=== PATIENT | male | born 1975 | race Caucasian/White ===

== ENCOUNTER 2020-10-23 17:26 | Emergency (ER) | payer OTHER, SELFPAY ==
[2020-10-23 17:50] VITALS: BP 107/61; BP 110/66; PULSE 97; RESP 18; TEMP 36.9; O2SAT 91; BMI 32.9
--- NOTE | 2020-10-23 20:53 | ED.ABDPAIN ---
HPI - Abdominal Pain General Chief Complaint: Abdominal Pain Stated Complaint: n/v abd pain, warm sensation, substance abuse Time Seen by Provider: 10/23/20 20:45 Source: patient Mode of arrival: ambulatory Limitations: no limitations History of Present Illness HPI narrative: Patient presents ED for acid burning abdominal pain for the past 2-4 days. Patient states he used heroin and cocaine today to help with the pain. Patient denies any fever, chills my chest pain, shortness of breath, dysuria, hematuria, flank pain, or testicular pain. Patient states he has not used any Suboxone 1 week. Related Data Previous Rx's Medication Instructions Recorded famotidine [Pepcid] 20 mg PO DAILY #30 tab 10/23/20 Allergies Allergy/AdvReac Type Severity Reaction Status Date / Time No Known Allergies Allergy Unverified 01/27/20 15:32 Review of Systems Review of Systems Yes all other systems are reviewed and are negative Constitutional: Reports as per HPI and Reports no additional constitutional complaints Eyes: Reports as per HPI and Reports no additional eye complaints Reports system reviewed and no additional complaints, except as documented and Reports as per HPI Cardiovascular: Reports as per HPI and Reports no additional cardiovascular complaints Respiratory: Reports as per HPI and Reports no additional respiratory complaints Gastrointestinal: Reports as per HPI, Reports no additional gastrointestinal complaints and Reports abdominal pain (Acid burning sensation 3 days) Genitourinary: Reports no additional male genitourinary complaints and Reports as per HPI Musculoskeletal: Reports no additional musculoskeletal complaints and Reports as per HPI Reports system reviewed and no additional complaints, except as documented and Reports as per HPI Psychiatric: Reports no additional psychiatric complaints and Reports as per HPI Physical Exam Vital Signs: Vital Signs: Last Vital Signs Temp 99.4 F 10/23/20 22:00 Pulse 88 10/23/20 22:00 Resp 16 10/23/20 22:00 BP 100/52 L 10/23/20 22:00 Pulse Ox 94 10/23/20 22:00 Body Mass Index 32.9 Const: General: cooperative, healthy appearing, comfortable, no acute distress, well developed, alert and awake Orientation/consciousness: patient oriented x3 HENMT: Head: Yes normal to inspection, Yes No palpable skull fracture present, Yes normocephalic and Yes atraumatic Eyes: General: appearance normal, both eyes and all related structures Neck: Neck: Yes normal visual inspection, Yes full ROM, Yes no lymphadenopathy, Yes no meningeal signs, Yes trachea midline, Yes supple and No tender Chest: Chest palpation & inspection: normal inspection of the chest and normal palpation of entire chest wall Resp: Effort & Inspection: normal respiratory effort and able to speak in complete sentences Auscultation: clear to auscultation bilaterally Cardio: Jugular venous distension: no JVD Heart sounds: S1 normal heart sound present and S2 normal heart sound present GI: Inspection: Yes normal to inspection and No abdominal wall ecchymosis Palpation (GI): Soft to palpation, not firm, nontender, no guarding and not rigid : General: No CVA tenderness and Yes no CVA tenderness Back/Spine/Pelvis: Back: no CVA tenderness, No CVA tenderness and No back tenderness Skin: General skin exam: no rashes or lesions noted and elasticity normal Neuro: General: patient oriented x3, gait normal, no meningeal signs and CN's II-XI intact bilaterally Cranial nerves: Yes CN's II-XII intact bilaterally Extrem: General: Yes normal to inspection and Yes full ROM Psych: Appearance: grossly normal, well kempt and not disheveled Course Course Course Narrative: Patient given GI cocktail. Due to patient having heroin use will do EEG at least 1 troponin for epigastric burning as sensation for 3 days. Reevaluation(s) Reevaluation #1: Patient EKG normal. Negative STEMI. Patient labs are normal troponin negative. Liver enzymes normal. Patient feeling better after GI cocktail. Patient passed p.o. challenge. O2 saturation on room air 96% on monitor. Time: 23:26 MDM - Abdominal Pain MDM Narrative Medical decision making narrative: Normal sinus rhythm. Ventricular rate 91. Pr interval 148. QRS 92. QTC 428. Negative STEMI Lab Data Result diagrams: 10/23/20 21:10/23/20 21:13 Labs: Lab Results 10/23/20 10/23/20 10/23/20 Range/Units 21:13 21:13 21:13 WBC 11.1 H (4.8-10.8) X10*3/uL RBC 4.16 L (4.60-5.80) X10*6/uL Hgb 10.2 L (14.0-18.0) g/dl Hct 31.8 L (42-52) % MCV 76.4 L (80-98) fL MCH 24.5 L (27.0-33.0) pg MCHC 32.1 (31.0-36.0) g/dl RDW 16.1 H (11.0-16.0) % Plt Count 151 L (160-400) X10*3/uL MPV 12.4 (9.4-12.4) fL Immature Gran % (Auto) 0.3 (0.0-0.4) % Neut % (Auto) 70.4 (45-73) % Lymph % (Auto) 17.9 L (20-40) % [place] % (Auto) 9.2 (2-11) % Eos % (Auto) 1.9 (0-4) % Baso % (Auto) 0.3 (0-2) % Lymph # (Auto) 2.0 (1.2-4.9) X10*3/uL [place] # (Auto) 1.0 (0.1-1.2) X10*3/uL Eos # (Auto) 0.2 (0.0-0.4) X10*3/uL Baso # (Auto) 0.0 (0.0-0.2) X10*3/uL Abs Immat Gran (auto) 0.03 (0.00-0.03) X10*3/uL Absolute Neuts (auto) 7.8 (2.0-8.3) X10*3/uL Absolute Nucleated RBC 0.000 (0.0-0.012) X10*3/uL Nucleated RBC % (auto) 0.0 (0.0-0.2) /100WBC Smear Tech's Comments VERIFIED PT 16.9 H (10.8-13.0) SEC INR 1.4 H (0.9-1.1) APTT 36.8 (24.1-38.0) SEC Sodium 135 (135-145) mmol/L Potassium 3.8 (3.3-5.1) mmol/L Chloride 96 (96-108) mmol/L Carbon Dioxide 29 (22-29) mmol/L Anion Gap 14 (12-20) BUN 9 (9-16) mg/dL Creatinine 0.85 (0.5-1.4) mg/dL Estim Creat Clear Calc 111.8 Estimated GFR > 60 Random Glucose 91 (60-115) mg/dL Calcium 8.9 (8.4-10.2) mg/dL Total Bilirubin 0.8 (0.0-1.0) mg/dL AST 43 H (5-37) U/L ALT 23 (0-40) U/L Alkaline Phosphatase 69 (39-117) U/L Troponin I High Sens (<3.5-35.0) ng/L Total Protein 6.7 (6.5-8.0) g/dL Albumin 3.9 (3.5-5.0) g/dL Lipase 8 (8-78) U/L 10/23/20 Range/Units 21:13 WBC (4.8-10.8) X10*3/uL RBC (4.60-5.80) X10*6/uL Hgb (14.0-18.0) g/dl Hct (42-52) % MCV (80-98) fL MCH (27.0-33.0) pg MCHC (31.0-36.0) g/dl RDW (11.0-16.0) % Plt Count (160-400) X10*3/uL MPV (9.4-12.4) fL Immature Gran % (Auto) (0.0-0.4) % Neut % (Auto) (45-73) % Lymph % (Auto) (20-40) % [place] % (Auto) (2-11) % Eos % (Auto) (0-4) % Baso % (Auto) (0-2) % Lymph # (Auto) (1.2-4.9) X10*3/uL [place] # (Auto) (0.1-1.2) X10*3/uL Eos # (Auto) (0.0-0.4) X10*3/uL Baso # (Auto) (0.0-0.2) X10*3/uL Abs Immat Gran (auto) (0.00-0.03) X10*3/uL Absolute Neuts (auto) (2.0-8.3) X10*3/uL Absolute Nucleated RBC (0.0-0.012) X10*3/uL Nucleated RBC % (auto) (0.0-0.2) /100WBC Smear Tech's Comments PT (10.8-13.0) SEC INR (0.9-1.1) APTT (24.1-38.0) SEC Sodium (135-145) mmol/L Potassium (3.3-5.1) mmol/L Chloride (96-108) mmol/L Carbon Dioxide (22-29) mmol/L Anion Gap (12-20) BUN (9-16) mg/dL Creatinine (0.5-1.4) mg/dL Estim Creat Clear Calc Estimated GFR Random Glucose (60-115) mg/dL Calcium (8.4-10.2) mg/dL Total Bilirubin (0.0-1.0) mg/dL AST (5-37) U/L ALT (0-40) U/L Alkaline Phosphatase (39-117) U/L Troponin I High Sens < 3.5 (<3.5-35.0) ng/L Total Protein (6.5-8.0) g/dL Albumin (3.5-5.0) g/dL Lipase (8-78) U/L Discharge Plan Discharge Clinical Impression: Gastroesophageal reflux disease Patient Disposition: Home, Self-Care Instructions: Gastroesophageal Reflux Disease (ED) Additional Instructions: Return to the ED for worsening abdominal pain, nausea, vomiting, fever, chills, chest pain, shortness of breath, diarrhea, or any other concerning symptoms. Please follow-up with the PCP Prescriptions: New famotidine [Pepcid] 20 mg tablet 20 mg PO DAILY Qty: 30 RF: 0 Interventions: ED Discharge Assessment Last Done: 10/23/20 23:39 Discharge Date/Time: 10/23/20 23:43 Print Language: Georgian [facility] Social History Social History Advance Directives: No Advance Directives Information Provided: No
[2020-10-23 20:56] VITALS: BP 110/56; PULSE 99; RESP 16; TEMP 37.8; O2SAT 99
--- NOTE | 2020-10-23 20:58 | ECG_ITS ---
Test Reason : ABD PAIN Blood Pressure : / mmHG Vent. Rate : 091 BPM Atrial Rate : 091 BPM P-R Int : 148 ms QRS Dur : 092 ms QT Int : 348 ms P-R-T Axes : 057 003 025 degrees QTc Int : 428 ms Normal sinus rhythm Normal ECG When compared with ECG of 01-APR-2002 10:13, No significant change was found Referred By: Arnold Stephen Electronically Signed By:KRISTINA FIGUEROA
[2020-10-23 21:20] LABS: Basophils Percent Auto 0.3 % (0-2); Eosinophils Absolute Auto 0.2 X10*3/uL (0.0-0.4); Eosinophils Percent Auto 1.9 % (0-4); Hemoglobin 10.2 g/dl (14.0-18.0); MANUAL DIFF FLAG SCAN; Mean Corpuscular Hemoglobin 24.5 pg (27.0-33.0); Mean Platelet Volume 12.4 fL (9.4-12.4); Red Blood Count 4.16 X10*6/uL (4.60-5.80); Red Cell Distribution Width 16.1 % (11.0-16.0); SCAN SMEAR FLAG 1
[2020-10-23 21:21] LABS: Hematocrit 31.8 % (42-52); Imm Gran Abs Auto 0.03 X10*3/uL (0.00-0.03); Imm Gran Pct Auto 0.3 % (0.0-0.4); Lymphocytes Percent Auto 17.9 % (20-40); Mean Corpuscular HGB Conc 32.1 g/dl (31.0-36.0); Mean Corpuscular Volume 76.4 fL (80-98); Monocytes Percent Auto 9.2 % (2-11); Neutrophils Absolute Auto 7.8 X10*3/uL (2.0-8.3); Neutrophils Percent Auto 70.4 % (45-73)
[2020-10-23 21:23] LABS: PLT ABN DIST 1
[2020-10-23] MEDS: PHENobarb/Hyoscy/Atropine/Scop 10 ML ELIXIR PO (21:34)
[2020-10-23] MEDS: Famotidine 20 MG TABLET PO (21:34)
[2020-10-23] MEDS: Lidocaine HCl Viscous 2 % 15 ML SOLUTION MUCOUS MEM (21:34)
[2020-10-23 21:39] LABS: White Blood Count 11.1 X10*3/uL (4.8-10.8)
[2020-10-23 21:40] LABS: Platelet Count 151 X10*3/uL (160-400); SLIDE REVIEW VERIFIED
[2020-10-23 21:41] LABS: Alanine Aminotransferase 23 U/L (0-40); Albumin Level 3.9 g/dL (3.5-5.0); Alkaline Phosphatase 69 U/L (39-117); Anion Gap 14 (12-20); Aspartate Amino Transferase 43 U/L (5-37); Bilirubin Total 0.8 mg/dL (0.0-1.0); Blood Urea Nitrogen 9 mg/dL (9-16); Calcium 8.9 mg/dL (8.4-10.2); Carbon Dioxide 29 mmol/L (22-29); Chloride 96 mmol/L (96-108); Creatinine Clr Calc Pharmacy 111.8; Estimated Glomerular Filt Rate > 60; Glucose Random 91 mg/dL (60-115); INTERNATIONAL NORM RATIO 1.4 (0.9-1.1); Potassium 3.8 mmol/L (3.3-5.1); Prothrombin Time 16.9 SEC (10.8-13.0); Sodium 135 mmol/L (135-145); Total Protein 6.7 g/dL (6.5-8.0)
[2020-10-23 21:44] LABS: Partial Thromboplastin Time 36.8 SEC (24.1-38.0)
[2020-10-23 21:47] LABS: Troponin-I High Sensitivity < 3.5 ng/L (<3.5-35.0)
[2020-10-23 22:00] VITALS: BP 100/52; PULSE 88; RESP 16; TEMP 37.4; O2SAT 94
[2020-10-23 22:51] LABS: Lipase 8 U/L (8-78)
== END 2020-10-23 23:43 | disposition home or self-care (01) ==
PROVIDERS: Physician Assistant; Emergency Provider Emergency Medicine Emergency Medical Services
DX: K21.9 Gastro-esophageal reflux disease without esophagitis (principal); R10.13 Epigastric pain; F11.10 Opioid abuse, uncomplicated
CPT/HCPCS: 36415; 80053; 83690; 84484; 85025; 85610; 85730; 93005; 99283; 99284

== ENCOUNTER 2021-05-03 10:40 | Outpatient (REF) | payer OTHER, SELFPAY | END 2021-05-03 10:41 | disposition home or self-care (01) | LOC: HO.LAB 10:40 | PROVIDERS: Visit Provider Internal Medicine | DX: Z20.822 Contact with and (suspected) exposure to COVID-19 (principal) | CPT/HCPCS: C9803; U0003; U0005 ==

== ENCOUNTER 2021-05-20 10:58 | Emergency (ER) | payer OTHER, SELFPAY ==
--- NOTE | ~2021-05-20 | XR_ITS ---
EXAMINATION: XR LUMBOSACRAL SPINE CLINICAL INFORMATION: Status post heavy lifting with lower back pain COMPARISON: None TECHNIQUE: Three views of the lumbosacral spine. FINDINGS: There is normal lumbar lordosis. The vertebral heights, alignment and disc heights are normal. No visible acute fracture, dislocation or subluxation seen. There is no lytic or sclerotic process. XR/XR lumbar spine 2-3V IMPRESSION: Unremarkable lumbar spine exam.
[2021-05-20 11:29] VITALS: BP 100/68; PULSE 91; RESP 18; TEMP 36.1; O2SAT 95; BMI 31.6
--- NOTE | 2021-05-20 11:56 | ED.BACK ---
HPI - Back Pain/Injury General Chief Complaint: Neck Pain/Injury Stated Complaint: Muscle spasm Time Seen by Provider: 05/20/21 11:49 Source: patient Mode of arrival: ambulatory Limitations: no limitations History of Present Illness HPI Narrative: 45-year-old male who is currently on Suboxone denies any IV drug use presenting to the ED with complaints of lower back pain/muscle spasms radiating to his right upper leg with associated numbness to his right upper leg for the past few days worse today. Reports that he has chronic back pain although usually the Motrin/Tylenol and Flexeril provide symptomatic relief and is no longer providing any relief. He reports that he believes it is related to work due to he works at [email or web address] where he has to heavy lift multiple boxes and is bending multiple times a day and he believes it is related to this. He denies any fevers, recent IV drug use, chest pain, abdominal pain, nausea/vomiting/diarrhea constipation, black or bloody stools, hematuria, saddle anesthesias, paresthesias, urinary or bowel incontinence or retention, rashes, weakness or any other symptoms complaints or concerns at this time. Patient is requesting x-ray of his lumbar spine at this time. MD elicited complaint: back pain and back injury Pertinent past history: prior back pain Onset (ago): day(s) Timing: constant and progressively worsening Severity: moderate Similar Symptoms Previously: Yes Quality: aching, spasming and throbbing Location: lumbar spine Radiation: right upper leg Exacerbating factors: movement, supine positioning, sitting upright, walking and lifting Relieving factors: none Context: while lifting, turning/twisting and bending Associated symptoms: numbness Treatments prior to arrival: other (Motrin/Tylenol/Flexeril and no symptomatic relief) Related Data Previous Rx's Medication Instructions Recorded famotidine 20 mg tablet (Pepcid) 20 mg PO DAILY #30 tab 10/23/20 ketorolac 10 mg tablet 10 mg PO Q8H PRN #10 tab 05/20/21 lidocaine 5 % topical patch 1 patch TOPICAL DAILY #15 ea 05/20/21 (Lidoderm) prednisone 20 mg tablet 40 mg PO DAILY 5 Days #10 tab 05/20/21 Allergies Allergy/AdvReac Type Severity Reaction Status Date / Time No Known Allergies Allergy Verified 05/20/21 11:32 Review of Systems Review of Systems: Constitutional : No trauma, No Weight loss, No Fever, No Chills, ENT/Mouth : No Hearing loss, No Ear Pain, No Nasal Congestion, No Sinus Pain, No Hoarseness, No sore throat, No Rhinorrhea, No Swallowing Difficulty Cardiovascular : No Chest Pain, No SOB Respiratory : No Cough, No Dyspnea Gastrointestinal : No Nausea, No Vomiting, No Diarrhea, No abdominal Pain, No Hematochezia, No Melena Genitourinary : No Dysuria, No Urinary Frequency, No Hematuria, No Urinary or Bowel Incontinence/retention Musculoskeletal : + Back pain, No neck pain, No joint stiffness, No joint swelling Skin : No Skin Lesions, No rash or signs of infection Neuro : No Weakness, + radiation, + Numbness, No Paresthesias, No headache, no loss of bowel or bladder incontinence, no saddle anesthesia, Focal weakness, No radiation Denies history of IV drug usage. Yes all other systems are reviewed and are negative PMFSH Past Medical History Attestation statement: The following information was validated with the patient. Medical History Asthma Hepatitis C Social History Social History Advance Directives: No Advance Directives Information Provided: Yes Physical Exam Vital Signs: Vital Signs: Last Vital Signs Temp 97.0 F 05/20/21 11:29 Pulse 91 05/20/21 11:29 Resp 18 05/20/21 13:29 BP 100/68 05/20/21 11:29 Pulse Ox 95 05/20/21 11:29 BMI result Body Mass Index 31.6 vital signs have been reviewed as normal and appeared to be correct. Blood pressure normal. Heart rate normal. Respiration rate normal. Temperature normal. Oxygen saturation normal. Appearance: Alert. Oriented X3. No acute distress. Head: Normal external exam. Normocephalic. Atraumatic. No Thomson signs noted. No raccoon eyes noted Eyes: PERRLA. EOMI. Conjunctiva and sclera normal. Eyelids normal. ENT: EAC normal. TM's Normal. Pharynx normal. Uvula midline. Moist mucous membranes. No trismus noted. No drooling noted. No muffled voice noted. Neck: Normal inspection. Neck supple. FROM. No adenopathy. Thyroid Normal. No meningeal signs. No neck mass noted. CVS: Normal heart rate and rhythm. Heart sound normal. No murmurs noted. Pulses normal throughout. Respiratory: No respiratory distress. Painless inspiration. Breath sounds normal. No wheezes/rales/rhonchi noted. Chest nontender. No accessory muscle usage noted or decreased air movement noted. Abdomen: Soft and nontender. Bowel sounds normal in all 4 quadrants. No distention noted. No organomegaly noted. No visible injury noted. Back: No CVA tenderness. Full range of motion noted. No obvious deformities, or edema. Mild para-spinal muscular tenderness from lumbar region to coccyx. Full ROM in back and lower extremities. 5/5 strength hip extension/flexion, abduction, adduction. Mild Lumbar pain with hip flexion against resistance. Straight leg raise test negative on right; Straight leg raise test negative on left; Reflexes normal ankle and knee bilaterally; EHL motor strength normal bilaterally. No rashes/lesion/induration/fluctuance or signs infection noted. Skin: Skin warm and dry. Normal skin color. Normal skin turgor. No rashes/lesions/lacerations noted. Extremities: No lower extremity edema. Extremities exhibit normal range of motion. Extremities nontender. Neuro: Oriented X 3. No motor deficit. No sensory deficit. Reflexes normal. Patient has a normal steady gait. Course Course Course Narrative: Pt c likely muscular pain, but could be herniated disc. Neuro exam shows no deficits. Not c/w AAA/epidural abscess/dissection. No high risk Hx (Incont, fever, immunosupp, recent surgery/LP, coag, signif trauma, wt loss, puls mass, hx/o Ca, TB, or IVDU) to warrant MRI/CT today. Not c/w Pyelo/UTI/kidney stone/spinal fx. Not cauda equina syndrome. Patient requesting x-ray of lumbar spine therefore not indicated although due to patient requesting will obtain an x-ray of lumbar spine. Treat symptomatic we with 30 mg of IM Toradol, 60 mg of prednisone and a Lidoderm patch and re-evaluate. Reevaluation(s) Reevaluation #1: - x-ray lumbar spine within normal limits. Therefore will DC home with symptomatic treatment instructions return if any new or worsening symptoms follow up with primary care provider. Patient understands agrees with this plan. Time: 13:22 MDM - Back Pain/Injury Medical Records Attestation: I reviewed the patient's medical records. Imaging Data Lumbar spine x-ray: Attestation: I personally reviewed and interpreted this imaging study as follows: Radiologist's impression: FINDINGS: There is normal lumbar lordosis. The vertebral heights, alignment and disc heights are normal. No visible acute fracture, dislocation or subluxation seen. There is no lytic or sclerotic process. XR/XR lumbar spine 2-3V IMPRESSION: Unremarkable lumbar spine exam. Discharge Plan Discharge Clinical Impression: Spasm of muscle of lower back Patient Disposition: Home, Self-Care Instructions: Muscle Spasm (ED) Prescriptions: New ketorolac 10 mg tablet 10 mg PO Q8H PRN (Reason: pain) Qty: 10 RF: 0 prednisone 20 mg tablet 40 mg PO DAILY 5 Days Qty: 10 RF: 0 lidocaine [Lidoderm] 5 % adhesive patch,medicated 1 patch topical DAILY Qty: 15 RF: 0 No Action famotidine [Pepcid] 20 mg tablet 20 mg PO DAILY Qty: 30 RF: 0 Referrals: Physician,Unknown J [Primary Care Provider] - 2 days (Your PCP) Stand Alone Forms: Work/School Release Print Language: Taiwanese
[2021-05-20] MEDS: Ketorolac Tromethamine 30 MG/ML VIAL IM (12:01)
[2021-05-20] MEDS: Lidocaine 4 % Patch ADH..PATCH 1 PATCH TRANSDERMA (12:01)
[2021-05-20] MEDS: predniSONE 20 MG TABLET 60 MG PO (12:01)
[2021-05-20 13:29] VITALS: RESP 18
== END 2021-05-20 13:41 | disposition home or self-care (01) ==
PROVIDERS: Emergency Provider Internal Medicine
DX: M54.50 Low back pain, unspecified (principal); M62.830 Muscle spasm of back; B19.20 Unspecified viral hepatitis C without hepatic coma; F11.20 Opioid dependence, uncomplicated
CPT/HCPCS: 72100; 96372; 99283; 99284; J1885

== ENCOUNTER 2021-05-22 13:21 | Outpatient (REF) | payer OTHER, SELFPAY ==
[2021-05-22 15:26] LABS: Binax Now Covid-19 Ag Negative (Negative)
[2021-05-22 15:27] LABS: Binax Internal Control QC Valid
== END 2021-05-22 13:22 | disposition home or self-care (01) ==
LOC: HO.LAB 13:21
PROVIDERS: Visit Provider Internal Medicine
DX: Z20.822 Contact with and (suspected) exposure to COVID-19 (principal)
CPT/HCPCS: C9803

== ENCOUNTER 2021-06-22 10:46 | Outpatient (REF) | payer OTHER, SELFPAY ==
[2021-06-22 11:23] LABS: COVID-19 Test Negative (Negative); IDNOW Serial# 16C4AD1C
== END 2021-06-22 10:47 | disposition home or self-care (01) ==
LOC: HO.LAB 10:46
PROVIDERS: Visit Provider Internal Medicine
DX: Z20.822 Contact with and (suspected) exposure to COVID-19 (principal)
CPT/HCPCS: 87635; C9803

== ENCOUNTER 2022-07-23 16:13 | Emergency (ER) | payer OTHER, SELFPAY ==
[2022-07-23 16:52] VITALS: BP 134/88; PULSE 118; RESP 18; TEMP 36.9; O2SAT 97; BMI 32.9
--- NOTE | 2022-07-23 16:56 | ED.GENADULT ---
HPI - General Adult General Chief complaint: General Medical Stated complaint: methedone Time Seen by Provider: 07/23/22 18:12 Source: patient Mode of arrival: ambulatory History of Present Illness HPI narrative: 46yo M w/PMHx Asthma, Hep C, presenting to the ED for Methadone dosing. Admits was seen at [facility] [place] on Friday, dosed at clinic on Friday, and then was supplied with 3 additional doses for 07/20, 07/21, and 07/22. Presenting today as was not aware clinic would be closed today. Admits to taking 76mg. Denies active substance use, or SI/HI Onset (ago): day(s) Related Data Previous Rx's Medication Instructions Recorded famotidine 20 mg tablet (Pepcid) 20 mg PO DAILY #30 tabs 10/23/20 ketorolac 10 mg tablet 10 mg PO Q8H PRN pain #10 tabs 05/20/21 lidocaine 5 % topical patch 1 patch topical DAILY pain #15 ea 05/20/21 (Lidoderm) prednisone 20 mg tablet 40 mg PO DAILY rash 5 days #10 tabs 05/20/21 Allergies Allergy/AdvReac Type Severity Reaction Status Date / Time No Known Allergies Allergy Verified 05/20/21 11:32 Review of Systems Review of Systems: Constitutional: No Fever, No Chills, No Fatigue, No Malaise ENT/Mouth: No Ear Pain, No Nasal Congestion, No sore throat, No Rhinorrhea, No Swallowing Difficulty Cardiovascular: No Chest Pain, No SOB Respiratory: No Cough, No Sputum, No Dyspnea Gastrointestinal: No Nausea, No Vomiting, No Abdominal pain Musculoskeletal: No joint pain, No Myalgias, No Joint Swelling Skin: No Skin Lesions, No rash Neuro: No Weakness, No Dizziness, No Headache Psych: No Anxiety/Panic, No Depression, No SI/HI/AH/VH, No Social Issues Yes all other systems are reviewed and are negative Constitutional: Constitutional: Reports as per [facility] Past Medical History Attestation statement: The following information was validated with the patient. Medical History Asthma Hepatitis C Physical Exam ED Vital Signs: Vital Signs - 24 hr 07/23/22 16:52 Temperature 98.4 F Pulse Rate 118 H Respiratory Rate 18 Blood Pressure 134/88 Pulse Oximetry 97 Oxygen Delivery Method Room Air BMI result Body Mass Index 32.9 Const General: cooperative, healthy appearing, comfortable, no acute distress, alert and awake Orientation/consciousness: patient oriented x3 Limitations: no limitations HENMT Head: Yes normal to inspection and Yes atraumatic Ears: hearing grossly normal bilaterally General nose exam: Normal external nose present Face and sinus: Yes normal facial exam Eyes General: appearance normal, both eyes and all related structures EOM: EOMs intact bilaterally Neck Neck: Yes normal visual inspection and Yes no meningeal signs Resp Effort & Inspection: normal respiratory effort and no respiratory distress Cardio Rate: regular rate Skin Rashes: no rashes Wounds: no wounds Neuro General: patient oriented x3, tone normal and no meningeal signs Gait exam (Neuro): Normal gait present Extrem General: Yes normal to inspection Psych Affect: normal affect Attitude: cooperative Course Course Course Narrative: RME-- 46yo M w/PMHx Asthma, Hep C, presenting to the ED for Methadone dosing. Admits was seen at clinic on Friday, dosed at clinic on Friday and then was supplied with 3 additional doses for 07/20, 07/21, and 07/22. Here today as was not aware clinic was closed today. Takes 76 mg, usually goes to [facility] contacted for dose verification Medications Administered Discontinued Medications Generic Name Dose Route Start Last Admin Trade Name Lobo PRN Reason Stop Dose Admin Methadone HCl 76 mg 07/23/22 18:10 07/23/22 18:23 Methadone Hcl 20 Mg/2 Ml Oral.Conc PO 07/23/22 18:11 76 mg ONCE ONE Administration Medical Decision Making Medical Decision Making [facility] Narrative: 46yo M w/PMHx Asthma, Hep C, presenting to the ED for Methadone dosing. Admits was seen at [facility] [place] on Friday, dosed at clinic on Friday, and then was supplied with 3 additional doses for 07/20, 07/21, and 07/22. Presenting today as was not aware clinic would be closed today. On exam initially tachycardic, patient presented to ED with empty bottles with corrected dating. Case discussed with kiran Wei, able to doze patient today as story checks out. Will provide patient with last dose letter. Please refer to course for remaining clinical decision making, interpretation of labs/imaging results, and discussions with consultants and/or family members. Differential Diagnosis Differential Diagnoses: The differential diagnosis associated with the presentation includes As above Consult Healthcare Provider Management of the patient was discussed with: Engineer Intern Lab Data MDM Lab Attestation statement: I reviewed the patient's lab results. External Record Review External record reviewed: Inpatient record, Office record, Outpatient record, Prior outpatient labs, Prior outpatient radiology, Primary care record and Outside ED record Discharge Plan Discharge Clinical Impression: Methadone dependence Patient Disposition: Home, Self-Care Instructions: Opioid Use Disorder (ED) Additional Instructions: Your dosed with her methadone today. You were supplied with a last dose letter. Follow-up with your clinic for further dosing Prescriptions: No Action famotidine [Pepcid] 20 mg tablet 20 mg PO DAILY Qty: 30 0RF ketorolac 10 mg tablet 10 mg PO Q8H PRN (Reason: pain) Qty: 10 0RF Rx Instructions: Given 1st dose in the ED prednisone 20 mg tablet 40 mg PO DAILY 5 Days Qty: 10 0RF lidocaine [Lidoderm] 5 % adhesive patch,medicated 1 patch topical DAILY Qty: 15 0RF Rx Instructions: leave on most painful area for up to 12 hrs. May be substituted Referrals: [facility] [Outside]
[2022-07-23] MEDS: methADONE HCl 20 MG/2 ML ORAL.CONC 76 MG PO (18:23)
--- OUTSIDE RECORDS SUMMARY | 2022-07-23 18:29 | XMS_ITS | Continuity of Care Document ---
:1975 Author Organization [facility] Address [address] [place] [address]- Care Team Providers Name Role Phone Cadence Bryant Primary Care Physician [place] [facility] [place] 03/17/22 [facility] [address]- Attending Physician: Cadence Bryant Admitting Physician: Cadence Bryant Referring Physician: Cadence Bryant Allergies, Adverse Reactions, Alerts Substance Reaction Severity Status Tylenol with Codeine Active Immunizations Given and Recorded Vaccine Date Status Refusal Reason SARS-CoV-2 (COVID-19) mRNA-1273 vaccine 05/31/21 Recorded SARS-CoV-2 (COVID-19) mRNA-1273 vaccine 07/25/20 Recorded SARS-CoV-2 (COVID-19) mRNA-1273 vaccine 06/27/20 Recorded hepatitis B adult vaccine 05/09/20 Recorded hepatitis B adult vaccine 04/13/20 Recorded tetanus/diphtheria/pertussis, acel(Tdap) 03/21/20 Recorde d influenza virus vaccine, inactivated 01/19/20 Recorded tetanus-diphtheria toxoids (Td) 01/30/12 Recorded Medications cloNIDine 0.1 mg oral tablet 0.1 mg, 1, tablet, By Mouth, Daily at bedtime, # 30 tablet, Refills 6, Tot. Refills 6, Maintenance, 04/30/21 14:59:00 EST, Route to Pharmacy Electronically, [facility]/pharmacy #[id number], 168, cm, 04/30/21 13:49:00 EST, Height Start Date: 04/30/21 Status: Orderedcyclobenzaprine 5 mg oral tablet See Instructions, TAKE 1 TABLET BY MOUTH TWICE A DAY NEEDED FOR BACK PAIN, # 56 tablet, 2 Refills, Maintenance, 01/10/22 17:30:00 EDT, [facility]-, 168, cm, 12/10/21 10:46:00EDT, Height Start Date: 01/10/22 Status: Orderedcyclobenzaprine 5 mg oral tablet 1 tablet, By Mouth, 2 times a day, FOR BACK PAIN., # 60 tablet, 0 Refills, Maintenance, 12/14/21 12:23:00 EDT, [facility], 168, cm, 12/10/21 10:46:00 EDT, Height Start Date: 12/14/21 Status: Orderedgabapentin 300 mg oral capsule 300 mg, 1, capsule, By Mouth, Daily at bedtime, for nerve pain, # 30 capsule, Refills 6, Tot. Refills 6, Maintenance, 02/08/22 16:45:00 EDT, Route to Pharmacy Electronically, [facility], Partial fill upon patient request if th... Start Date: 02/08/22 Status: Orderedhydrocortisone topical 25 mg suppository 1 supp = 25 mg, Rectally, 2 times a day, # 28 supp, 1 Refills, Maintenance, 12/10/21 10:58:00 EDT, Suppository, [facility], Partial fill upon patient request if the prescription is for a schedule II opioid drug., 168, cm, ... Start Date: 12/10/21 Stop Date: 01/07/22 Status: OrderedMiraLax oral powder for reconstitution = 17 Gm, By Mouth, 2 times a day before breakfast and dinne, dissolve in water before taking, # 255 Gm, 2 Refills, Maintenance, 12/10/21 10:58:00 EDT, REC Powder, [facility], Partial fill upon patient request if the prescripti... Start Date: 12/10/21 Status: OrderedMobic 15 mg oral tablet 1 tablet = 15 mg, By Mouth, Daily, for back pain with food, # 30 tablet, 6 Refills, Maintenance, 04/30/21 14:59:00 EST, Tablet, [facility]/pharmacy #[id number], Partial fill upon patient request if the prescriptionis for a schedule II opioid drug., 168, cm, 04/12... Start Date: 04/30/21 Status: OrderedSenna 8.6 mg oral tablet 17.2 mg, 2, tablet, By Mouth, Daily at bedtime, PRN, with plenty of water, # 60 tablet, Refills 6, Tot. Refills 6, Maintenance, Constipation, 04/30/21 14:59:00 EST, Route to Pharmacy Electronically, [facility]/pharmacy #[id number] Tablet, Partial fill upon patient... Start Date: 04/30/21 Status: Orderedsertraline 50 mg oral tablet 1 tablet = 50 mg, By Mouth, Daily at bedtime, for anxiety, # 30 tablet, 3 Refills, Maintenance, 07/09/21 11:27:00 EST, Tablet, [facility]/pharmacy #[id number], Partial fill upon patient request if the prescription is for a schedule II opioid drug., 168, cm, ... 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
--- OUTSIDE RECORDS SUMMARY | 2022-07-23 18:29 | XMS_ITS | Continuity of Care Document ---
:1975 Author Organization [facility] Address [address] [place] [address]- Care Team Providers Name Role Phone Passer Cadence JOHNS Primary Care Physician [place] [facility] [place] 11[place]/21 [facility] [address] [place] [id number] Attending Physician: Artur Mauricio MD Admitting Physician: Artur Mauricio MD Allergies, Adverse Reactions, Alerts Substance Reaction Severity [...] 04/30/21 14:59:00 EST, Route to Pharmacy Electronically, [facility]/pharmacy #[id number], 168, cm, 04/30/21 13:49:00 EST, Height Start Date: 04/30/21 Status: Orderedcyclobenzaprine 5 mg oral tablet 1 tablet, By Mouth, 2 times a day, FOR BACK PAIN., # 60 tablet, 6 Refills, Maintenance, 04/30/21 14:59:00 EST, [facility]/pharmacy #[id number], 168, cm, 04/30/21 13:49:00 EST, Height Start Date: 04/30/21 Status: Orderedgabapentin 300 mg oral capsule 300 mg, 1, capsule, By Mouth, Daily at bedtime, for nerve pain, # 30 capsule, Refills 6, Tot. Refills 6, Maintenance, 04/30/21 14:59:00 EST, Route to Pharmacy Electronically, [facility]/pharmacy #[id number], Partial fill upon patient request if the prescription is... Start Date: 04/30/21 Status: OrderedMobic 15 mg oral tablet 1 tablet = 15 mg, By Mouth, Daily, for back pain with food, # 30 tablet, 6 Refills, Maintenance, 04/30/21 14:59:00 EST, Tablet, [facility]/pharmacy [facility][id number], Partial fill upon patient request if the prescriptionis for a schedule II opioid drug., 168, cm, 04/12... Start Date: 04/30/21 Status: OrderedSenna 8.6 mg oral tablet 17.2 mg, 2, tablet, By Mouth, Daily at bedtime, PRN, with plenty of water, # 60 tablet, Refills 6, Tot. Refills 6, Maintenance, Constipation, 04/30/21 14:59:00 EST, Route to Pharmacy Electronically, [facility]acy [facility][id number] Tablet, Partial fill upon patient... Start Date: 04/30/21 Status: Orderedsertraline 50 mg oral tablet 1 tablet = 50 mg, By Mouth, Daily at bedtime, for anxiety, # 30 tablet, 3 Refills, Maintenance, 07/09/21 11:27:00 EST, Tablet, [facility]pharmacy [id number], Partial fill upon patient request if the prescription is for a schedule II opioid drug., 168, cm, ... Start Date: 07/09/21 Status: Ordered Problem List Condition Effective Dates Status Health Status Informant Anxiety(Confirmed) Active Lumbar facet arthropathy(Confirmed) Active Chronic constipation(Confirmed) Active Chronic right-sided low back pain with Active right-sided sciatica(Confirmed) Cigarette smoker(Confirmed) Active History of hepatitis C(Confirmed) Active History of substance abuse(Confirmed) Active Social History Social History Type Response Smoking Status 10 or more cigarettes (1/2 p ack or more)/day in last 30 days; Total pack years: 14; Number of years: 20; entered on: 02/12/21 Sex
--- OUTSIDE RECORDS SUMMARY | 2022-07-23 18:29 | XMS_ITS | Continuity of Care Document ---
:1975 Author Organization [facility] Address [address] [place] [address]- Care Team Providers Name Role Phone Passer Cadence JOHNS Primary Care Physician Encounter [facility] [place] Date(s): 06/20/22 - 07/20/22 [facility] [address]- [place] Allergies, Adverse Reactions, Alerts Substance Reaction Severity [...] 1, tablet, By Mouth, Daily at bedtime, for sleep and night sweats, # 90 tablet, Refills 1, Tot. Refills 1, Maintenance, 07/03/22 8:33:00 EST, Route to Pharmacy Electronically, [facility]/pharmacy #1, 168, cm, 07/03/22 8:08:00 EST, Height Start Date: 07/03/22 Status: Orderedcyclobenzaprine 5 mg oral tablet 1 tablet, By Mouth, 2 times a day, PRN NEEDED FOR BACK PAIN, # 60 tablet, 1 Refills, Maintenance,07/03/22 8:33:00 EST, [facility]pharmacy #[id number], 168, cm, 07/03/22 8:08:00 EST, Height Start Date: 07/03/22 Status: Orderedgabapentin 300 mg oral capsule 300 mg, 1, capsule, By Mouth, Daily at bedtime, for nerve pain, # 90 capsule, Refills 1, Tot. Refills 1, Maintenance, 07/03/22 8:33:00 EST, Route to Pharmacy Electronically, [facility]/pharmacy #[id number], Partialfill upon patient request if the prescription is... Start Date: 07/03/22 Status: Orderedhydrocortisone topical 25 mg suppository 1 supp = 25 mg, Rectally, 2 times a day, # 28 supp, 1 Refills, Maintenance, 12/10/21 10:58:00 EDT, Suppository, [facility], Partial fill upon patient request if the prescription is for a schedule II opioid drug., 168, cm, ... Start Date: 12/10/21 Stop Date: 01/07/22 Status: OrderedhydrOXYzine hydrochloride 25 mg oral tablet 1 tablet = 25 mg, By Mouth, 2 times a day, PRN for anxiety, # 60 tablet, 2 Refills, Maintenance, 07/03/22 8:33:00 EST, Tablet, [facility]/pharmacy #[id number], Partial fill upon patient request if the prescription is for a schedule II opioid drug., 168, cm, ... Start Date: 07/03/22 Status: OrderedMiraLax oral powder for reconstitution = 17 Gm, By Mouth, 2 times a day before breakfast and dinne, dissolve in water before taking, # 255 Gm, 6 Refills, Maintenance, 07/03/22 8:33:00 EST, REC Powder, [facility]/pharmacy #[id number], Partial fill upon patient request if the prescription is for a schedu... Start Date: 07/03/22 Status: OrderedMobic 15 mg oral tablet 1 tablet = 15 mg, By Mouth, Daily, for back pain with food, # 90 tablet, 1 Refills, Maintenance, 07/03/22 8:33:00 EST, Tablet, [facility]/pharmacy #[id number], Partial fill upon patient request if the prescription is for a schedule II opioid drug., 168, cm, 07/03... Start Date: 07/03/22 Status: OrderedSenna 8.6 mg oral tablet 17.2 mg, 2, tablet, By Mouth, Daily at bedtime, PRN, with plenty of water, # 180 tablet, Refills 3, Tot. Refills 3, Maintenance, Constipation, 07/03/22 8:33:00 EST, Route to Pharmacy Electronically, [facility]/pharmacy #[id number] Tablet, Partial fill upon patient... Start Date: 07/03/22 Status: Ordered Problem List Condition Confirmation Course Effective Dates Status Health Stat us Informant Anxiety Confirmed Active Lumbar facet Confirmed Active arthropathy Chronic Confirmed Active constipation Chronic right-sided Confirmed Active low back pain with right-sided sciatica Cigarette smoker Confirmed Active History of Confirmed Active hepatitis C History of Confirmed Active substance abuse Insomnia Confirmed Active Obese class I Confirmed Active Social History Social History Type Response Smoking Status 10 or more cigarettes (1/2 p ack or more)/day in last 30 days; Number of years: 20; Total pack years: 14; entered on: 02/12/21 Sex Patient Care team information Care Team PersonnelName: Cadence Bryant Position: [facility] PCO Associate Professional Member Role: PCP Address: Address: [address] [place] [address]- Care Team Related PersonsName: RAÚL CRISTOBAL Address: home [address] FIRST FLOOR [phone] [place] [address] Name: KAYLAH WEAVER
--- OUTSIDE RECORDS SUMMARY | 2022-07-23 18:29 | XMS_ITS | Continuity of Care Document ---
:[address] [facility] Address [address] [place] [address]- Care Team Providers Name Role Phone Cadence Bryant Primary Care Physician [place] [facility] [place] 04/07/[place] - 05/13/[address] [address] Attending Physician: Cadence Bryant Admitting Physician: Cadence Bryant Referring Physician: Cadence Bryant Allergies, Adverse Reactions, Alerts Substance Reaction Severity Status Tylenol with Codeine Active Immunizations Given and Recorded Vaccine Date Status Refusal Reason SARS-CoV-2 (COVID-19) mRNA-1273 vaccine 07/25/20 Recorded SARS-CoV-2 [...] 04/30/21 14:59:00 EST, Route to Pharmacy Electronically, [facility]/pharmacy #[id number], 168, cm, 04/30/21 13:49:00 EST, Height Start Date: 04/30/21 Status: Orderedcyclobenzaprine 5 mg oral tablet 1 tablet, By Mouth, 2 times a day, FOR BACK PAIN., # 60 tablet, 6 Refills, Maintenance, 04/30/21 14:59:00 EST, [facility]/pharmacy #[id number], 168, cm, 04/30/21 13:49:00 EST, Height [...] fill upon patient... 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) Cigarette smoker(Confirmed) Active History of substance abuse(Confirmed) Active Social History Social History Type Response Smoking Status 10 or more cigarettes (1/2 p ack or more)/day in last 30 days; Number of years: 20; Total pack years: 14; entered on: 02/12/21 Sex
--- OUTSIDE RECORDS SUMMARY | 2022-07-23 18:29 | XMS_ITS | Continuity of Care Document ---
:1975 Author Organization [facility] Address [address] [place] [address]- Care Team Providers Name Role Phone Passer Cadence JOHNS Primary Care Physician Encounter [facility] [place] Date(s): 01/09/22 - 02/08/[address] [address] Attending Physician: Admtr, Althea Admitting Physician: Admtr, Ar8 Referring Physician: Admtr, Ar8 Allergies, Adverse Reactions, Alerts Substance Reaction Severity [...] 04/30/21 14:59:00 EST, Route to Pharmacy Electronically, [facility]/pharmacy #[id number], 168, cm, 04/30/21 13:49:00 EST, Height Start Date: 04/30/21 Status: Orderedcyclobenzaprine 5 mg oral tablet See Instructions, TAKE 1 TABLET BY MOUTH TWICE A DAY NEEDED FOR BACK PAIN, # 56 tablet, 2 Refills, Maintenance, 01/10/22 17:30:00 EDT, [facility]-, 168, cm, 12/10/21 10:46:00EDT, Height Start Date: 01/10/22 Status: Orderedcyclobenzaprine 5 mg oral tablet 1 tablet, By Mouth, 2 times a day, FOR BACK PAIN., # 60 tablet, 0 Refills, Maintenance, 12/14/21 12:23:00 EDT, [facility]-, 168, cm, 12/10/21 10:46:00 EDT, Height Start Date: 12/14/21 Status: Orderedgabapentin 300 mg oral capsule 300 mg, 1, capsule, By Mouth, Daily at bedtime, for nerve pain, # 30 capsule, Refills 6, Tot. Refills 6, Maintenance, 02/08/22 16:45:00 EDT, Route to Pharmacy Electronically, [facility], Partial fill upon patient request if th... Start Date: 02/08/22 Status: Orderedhydrocortisone topical 25 mg suppository 1 supp = 25 mg, Rectally, 2 times a day, # 28 supp, 1 Refills, Maintenance, 12/10/21 10:58:00 EDT, Suppository, [facility], Partial fill upon patient request if the prescription is for a schedule II opioid drug., 168, cm, 0... Start Date: 12/10/21 Stop Date: 01/07/22 Status: OrderedMiraLax oral powder for reconstitution = 17 Gm, By Mouth, 2 times a day before breakfast and dinne, dissolve in water before taking, # 255 Gm, 2 Refills, Maintenance, 12/10/21 10:58:00 EDT, REC Powder, [facility], Partial fill upon patient request if the prescripti... Start Date: 12/10/21 Status: OrderedMobic 15 mg oral tablet 1 tablet = 15 mg, By Mouth, Daily, for back pain with food, # 30 tablet, 6 Refills, Maintenance, 04/30/21 14:59:00 EST, Tablet, [facility]/pharmacy #[id number], Partial fill upon patient request if the prescriptionis for a schedule II opioid drug., 168, cm, 12/2... Start Date: 04/30/21 Status: OrderedSenna 8.6 mg oral tablet 17.2 mg, 2, tablet, By Mouth, Daily at bedtime, PRN, with plenty of water, # 60 tablet, Refills 6, Tot. Refills 6, Maintenance, Constipation, 04/30/21 14:59:00 EST, Route to Pharmacy Electronically, [facility]/pharmacy #[id number] Tablet, Partial fill upon patient... Start Date: 04/30/21 Status: Orderedsertraline 50 mg oral tablet 1 tablet = 50 mg, By Mouth, Daily at bedtime, for anxiety, # 30 tablet, 3 Refills, Maintenance, 07/09/21 11:27:00 EST, Tablet, [facility]/pharmacy #[id number], Partial fill upon patient request if [...] team information PersonnelName: Cadence Bryant Address: Address: [address] [place] [address]
--- OUTSIDE RECORDS SUMMARY | 2022-07-23 18:29 | XMS_ITS | Continuity of Care Document ---
:1975 Author Organization [facility] Address [address] [place] [address]- Care Team Providers Name Role Phone Passer Cadence JOHNS Primary Care Physician [phone] [place] [facility] [place] Date(s): 03/05/22 - 04/04/22 [facility] [address]- [place] Allergies, Adverse Reactions, Alerts Substance Reaction [...] 04/30/21 14:59:00 EST, Route to Pharmacy Electronically, [facility]/pharmacy #[id number], 168, cm, 04/30/21 13:49:00 EST, Height Start Date: 04/30/21 Status: Orderedcyclobenzaprine 5 mg oral tablet 1 tablet, By Mouth, 2 times a day, PRN NEEDED FOR BACK PAIN, # 47 tablet, 0 Refills, Maintenance,03/20/22 13:20:00 EST, [facility]-, 168, cm, 12/10/21 10:46:00 EDT, Height Start Date: 03/20/22 Status: Orderedgabapentin 300 mg oral capsule 300 mg, 1, capsule, By Mouth, Daily at bedtime, for nerve pain, # 30 capsule, Refills 6, Tot. Refills 6, Maintenance, 02/08/22 16:45:00 EDT, Route to Pharmacy Electronically, [facility]-, Partial fill upon patient request if th... Start Date: 02/08/22 Status: Orderedhydrocortisone topical 25 mg suppository 1 supp = 25 mg, Rectally, 2 times a day, # 28 supp, 1 Refills, Maintenance, 12/10/21 10:58:00 EDT, Suppository, [facility]-, Partial fill upon patient request if the prescription is for a schedule II opioid drug., 168, cm, ... Start Date: 12/10/21 Stop Date: 01/07/22 Status: OrderedMiraLax oral powder for reconstitution = 17 Gm, By Mouth, 2 times a day before breakfast and dinne, dissolve in water before taking, # 255 Gm, 2 Refills, Maintenance, 12/10/21 10:58:00 EDT, REC Powder, [facility]-, Partial fill upon patient request if the prescripti... Start Date: 12/10/21 Status: OrderedMobic 15 mg oral tablet 1 tablet = 15 mg, By Mouth, Daily, for back pain with food, # 30 tablet, 6 Refills, Maintenance, 04/30/21 14:59:00 EST, Tablet, [facility]/pharmacy #[id number], Partial fill upon patient request if the prescriptionis for a schedule II opioid drug., 168, cm, 2... Start Date: 04/30/21 Status: OrderedSenna 8.6 mg oral tablet 17.2 mg, 2, tablet, By Mouth, Daily at bedtime, PRN, with plenty of water, # 60 tablet, Refills 6, Tot. Refills 6, Maintenance, Constipation, 04/30/21 14:59:00 EST, Route to Pharmacy Electronically, [facility]/pharmacy #[id number] Tablet, Partial fill upon patient... Start Date: 04/30/21 Status: Orderedsertraline 50 mg oral tablet 1 tablet = 50 mg, By Mouth, Daily at bedtime, for anxiety, # 30 tablet, 3 Refills, Maintenance, 07/09/21 11:27:00 EST, Tablet, [facility]/pharmacy #[id number], Partial fill upon patient request if the [...] C History of Confirmed Active substance abuse Obese class I Confirmed Active Social History Social History Type Response Smoking Status 10 or more cigarettes (1/2 p ack or more)/day in last 30 days; Number of years: 20; Total pack years: 14; entered on: 02/12/21 Sex Patient Care team information Care Team PersonnelName: Cadence Bryant Position: [facility] PCO Associate Professional Member Role: PCP Address: Address: [address] [place] [address]- Care Team Related PersonsName: RAÚL CRISTOBAL Address: home [address] [place] [address] FIRST FLOOR [phone] [place] [address] Name: KAYLAH WEAVER
--- OUTSIDE RECORDS SUMMARY | 2022-07-23 18:29 | XMS_ITS | Continuity of Care Document ---
:1975 Author Organization [facility] Address [address] [place] [address]- Care Team Providers Name Role Phone Cadence Bryant Primary Care Physician [place] [facility]/08/21 - 06/17/[address] [address] Attending Physician: Cadence Bryant Admitting Physician: Cadence [...] 04/30/21 14:59:00 EST, Route to Pharmacy Electronically, [facility]/pharmacy #[id number], 168, cm, 04/30/21 13:49:00 EST, Height Start Date: 04/30/21 Status: Orderedcyclobenzaprine 5 mg oral tablet 1 tablet, By Mouth, 2 times a day, FOR BACK PAIN., # 60 tablet, 6 Refills, Maintenance, 04/30/21 14:59:00 EST, [facility]/pharmacy #[id number], 168, cm, 04/30/21 13:49:00 EST, Height Start [...]
--- OUTSIDE RECORDS SUMMARY | 2022-07-23 18:29 | XMS_ITS | Continuity of Care Document ---
:1975 Author Organization [facility] Address Unavailable , Care Team Providers Name Role Phone Passer Cadence JOHNS Primary Care Physician [phone] [place] [facility] [place] Date(s): 08/20/21 - 09/19/21 [facility] Attending Physician: Althea Robert Admitting Physician: Althea Robert Referring Physician: AdmtrAlthea Allergies, Adverse Reactions, Alerts Substance Reaction Severity [...] 04/30/21 14:59:00 EST, Route to Pharmacy Electronically, [facility]/pharmacy #[id number], 168, cm, 04/30/21 13:49:00 EST, Height Start Date: 04/30/21 Status: Orderedcyclobenzaprine 5 mg oral tablet 1 tablet, By Mouth, 2 times a day, FOR BACK PAIN., # 60 tablet, 6 Refills, Maintenance, 04/30/21 14:59:00 EST, [facility]/pharmacy #1, 168, cm, 04/30/21 13:49:00 EST, Height Start [...] a schedule II opioid drug., 168, cm, 07/09/... Start Date: 07/09/21 Status: Ordered Problem List [...]
--- OUTSIDE RECORDS SUMMARY | 2022-07-23 18:30 | XMS_ITS | Continuity of Care Document ---
:1975 Author Organization [facility] Address [address] [place] [address]- Care Team Providers Name Role Phone Passer Cadence JOHNS Primary Care Physician [phone] Encounter [facility] [place] Date(s): 04/13/21 - 05/13/[address] [address] Attending Physician: Admtr, Ar8 Admitting Physician: Admtr, Ar8 Referring Physician: Admtr, [...] 04/30/21 14:59:00 EST, Route to Pharmacy Electronically, [facility]/pharmacy #[id number], 168, cm, 04/30/21 13:49:00 EST, Height Start Date: 04/30/21 Status: Orderedcyclobenzaprine 5 mg oral tablet 1 tablet, By Mouth, 2 times a day, FOR BACK PAIN., # 60 tablet, 6 Refills, Maintenance, 04/30/21 14:59:00 EST, [facility]/pharmacy #1, 168, cm, 04/30/21 13:49:00 EST, Height [...]
--- OUTSIDE RECORDS SUMMARY | 2022-07-23 18:30 | XMS_ITS | Continuity of Care Document ---
:1975 Author Organization [facility] enter/[facility] Address Unavailable , Care Team Providers Name Role Phone Cadnece Bryant Primary Care Physician [phone] [facility] Date(s): 07/09/21 - 07/16/21 [facility] Attending Physician: Cadence Bryant Allergies, Adverse Reactions, Alerts [...] 04/30/21 14:59:00 EST, Route to Pharmacy Electronically, [facility]/pharmacy #[id number], 168, cm, 04/30/21 13:49:00 EST, Height Start Date: 04/30/21 Status: Orderedcyclobenzaprine 5 mg oral tablet 1 tablet, By Mouth, 2 times a day, FOR BACK PAIN., # 60 tablet, 6 Refills, Maintenance, 04/30/21 14:59:00 EST, [facility]/pharmacy #[id number], 168, cm, 04/30/21 13:49:00 EST, Height Start Date: 04/30/21 Status: Ordereddoxycycline monohydrate 100 mg oral capsule 1 capsule = 100 mg, By Mouth, 2 times a day, for 14 days, for skin with fluids may take with food tominimize abdominal discomfort, # 28 capsule, 0 Refills, Acute 07/23/21 11:28:00 EDT, 07/09/21 11:28:00 EST, Capsule, [facility]/pharmacy #[id number], Partial susanna... Start Date: 07/09/21 Stop Date: 07/23/21 Status: Orderedgabapentin 300 mg oral capsule 300 [...] Dates Status Health Status Informant Anxiety(Confirmed) Active Chronic constipation(Confirmed) Active Chronic right-sided low back pain with Active right-sided sciatica(Confirmed) Cigarette smoker(Confirmed) Active History of hepatitis C(Confirmed) Active History of substance abuse(Confirmed) Active Vital Signs Most recent to oldest [Reference Range]: 1 Height 168 cm (07/09/21 10:53 AM) Weight 80 kg (07/09/21 10:53 AM) Oxygen Saturation [94-100 %] 96 % (07/09/21 10:53 AM) Pulse Rate [55-90 bpm] 82 bpm (07/09/21 10:53 AM) Body Mass Index [18.5-24.99] 28.34 *H* (07/09/21 10:53 AM) Blood Pressure [90-138/55-84 mm Hg] 107/58 mm Hg (07/09/21 10:53 AM) Respiratory Rate [16-30 br/min] 16 br/min (07/09/21 10:53 AM) Temperature [96.8-100.4 DegF] 98.0 DegF (07/09/21 10:53 AM) Mode of Delivery (Oxygen) Room air (07/09/21 10:53 AM) Blood pressure sites Arm, left (07/09/21 10:53 AM) Temperature Route Oral (07/09/21 10:53 AM) Weight Obtained Via Standing scale (07/09/21 10:53 AM) Social History Social History Type Response Smoking Status 10 or more cigarettes (1/2 p ack or more)/day in last 30 days; Total pack years: 14; Number of years: 20; entered on: 02/12/21 Sex
--- OUTSIDE RECORDS SUMMARY | 2022-07-23 18:30 | XMS_ITS | Continuity of Care Document ---
:1975 Author Organization [facility] Address [address] [place] [address]- Care Team Providers Name Role Phone Cadence Bryant Primary Care Physician [id number] Date(s): 07/16/21 - 08/25/21 [facility] [address] [place] [address] Attending Physician: Not on Staff, Attending MD Referring Physician: Cadence Bryant Allergies, Adverse Reactions, [...] 04/30/21 14:59:00 EST, Route to Pharmacy Electronically, [facility]/pharmacy #[id number], 168, cm, 04/30/21 13:49:00 EST, Height Start Date: 04/30/21 Status: Orderedcyclobenzaprine 5 mg oral tablet 1 tablet, By Mouth, 2 times a day, FOR BACK PAIN., # 60 tablet, 6 Refills, Maintenance, 04/30/21 14:59:00 EST, [facility]/pharmacy #1, 168, cm, 04/30/21 13:49:00 EST, [...]
--- OUTSIDE RECORDS SUMMARY | 2022-07-23 18:30 | XMS_ITS | Continuity of Care Document ---
:1975 Author Organization [facility] enter/[facility] Address [address] [place] [address]- Care Team Providers Name Role Phone Passer Cadence JOHNS Primary Care Physician Encounter [facility] Date(s): 06/11/22 - 07/11/22 [facility] [address]- [place] Allergies, Adverse Reactions, Alerts Substance Reaction [...] 07/03/22 8:33:00 EST, Route to Pharmacy Electronically, [facility]/pharmacy #1, 168, cm, 07/03/22 8:08:00 EST, Height [...] 07/03/22 8:33:00 EST, Route to Pharmacy Electronically, [facility]/pharmacy #[id number], Partialfill upon patient request if the prescription is... Start Date: 07/03/22 Status: Orderedhydrocortisone topical 25 mg suppository 1 supp = 25 mg, Rectally, 2 times a day, # 28 supp, 1 Refills, Maintenance, 12/10/21 10:58:00 EDT, Suppository, [facility], Partial fill upon patient request if the prescription is for a schedule II opioid drug., 168, cm, ... Start Date: 12/10/21 Stop Date: 01/07/22 Status: OrderedhydrOXYzine hydrochloride 25 mg oral tablet 1 tablet = 25 mg, By Mouth, 2 times a day, PRN for anxiety, # 60 tablet, 2 Refills, Maintenance, 07/03/22 8:33:00 EST, Tablet, [facility]/pharmacy #[id number], Partial fill upon patient request if the prescription is for a schedule II opioid drug., 168, cm, ... Start Date: 07/03/22 Status: OrderedMiraLax oral powder for reconstitution = 17 Gm, By Mouth, 2 times a day before breakfast and dinne, dissolve in water before taking, # 255 Gm, 6 Refills, Maintenance, 07/03/22 8:33:00 EST, REC Powder, [facility]/pharmacy #[id number], Partial fill upon patient request if the prescription is for a schedu... Start Date: 07/03/22 Status: OrderedMobic 15 mg oral tablet 1 tablet = 15 mg, By Mouth, Daily, for back pain with food, # 90 tablet, 1 Refills, Maintenance, 07/03/22 8:33:00 EST, Tablet, [facility]/pharmacy #[id number], Partial fill upon patient request if the prescription is for a schedule II opioid drug., 168, cm, 07/03... Start Date: 07/03/22 Status: OrderedSenna 8.6 mg oral tablet 17.2 mg, 2, tablet, By Mouth, Daily at bedtime, PRN, with plenty of water, # 180 tablet, Refills 3, Tot. Refills 3, Maintenance, Constipation, 07/03/22 8:33:00 EST, Route to Pharmacy Electronically, [facility]/pharmacy #[id number] Tablet, Partial fill upon patient... Start Date: [...] information Care Team PersonnelName: Cadence Bryant Position: [facility] PCO Associate Professional Member Role: PCP Address: Address: [address] [place] [address]- Care Team Related PersonsName: RAÚL CRISTOBAL Address: home [address] FIRST FLOOR [phone] [place] [address] Name: KAYLAH WEAVER
--- OUTSIDE RECORDS SUMMARY | 2022-07-23 18:30 | XMS_ITS | Continuity of Care Document ---
:1975 Author Organization [facility] Address [address] [place] [address]- Care Team Providers Name Role Phone Cadence Bryant Primary Care Physician Encounter [facility] Date(s): 01/10/22 - 02/21/[address] [address] Attending [...] 04/30/21 14:59:00 EST, Route to Pharmacy Electronically, [facility]/pharmacy #[id number], 168, cm, 04/30/21 13:49:00 EST, Height Start Date: 04/30/21 Status: Orderedcyclobenzaprine 5 mg oral tablet See Instructions, TAKE 1 TABLET BY MOUTH TWICE A DAY NEEDED FOR BACK PAIN, # 56 tablet, 2 Refills, Maintenance, 01/10/22 17:30:00 EDT, [facility]-, 168, cm, 12/10/21 10:46:00EDT, Height Start Date: 01/10/22 Status: Orderedcyclobenzaprine 5 mg oral tablet 1 tablet, By Mouth, 2 times a day, FOR BACK PAIN., # 60 tablet, 0 Refills, Maintenance, 12/14/21 12:23:00 EDT, [facility], 168, cm, 12/10/21 10:46:00 EDT, Height Start Date: 12/14/21 Status: Orderedgabapentin 300 mg oral capsule 300 mg, 1, capsule, By Mouth, Daily at bedtime, for nerve pain, # 30 capsule, Refills 6, Tot. Refills 6, Maintenance, 02/08/22 16:45:00 EDT, Route to Pharmacy Electronically, [facility], Partial fill upon patient request if th... Start Date: 02/08/22 Status: Orderedhydrocortisone topical 25 mg suppository 1 supp = 25 mg, Rectally, 2 times a day, # 28 supp, 1 Refills, Maintenance, 12/10/21 10:58:00 EDT, Suppository, [facility], Partial fill upon patient request if the prescription is for a schedule II opioid drug., 168, cm, 0... Start Date: 12/10/21 Stop Date: 01/07/22 Status: OrderedMiraLax oral powder for reconstitution = 17 Gm, By Mouth, 2 times a day before breakfast and dinne, dissolve in water before taking, # 255 Gm, 2 Refills, Maintenance, 12/10/21 10:58:00 EDT, REC Powder, [facility], Partial fill upon patient request if the prescripti... Start Date: 12/10/21 Status: OrderedMobic 15 mg oral tablet 1 tablet = 15 mg, By Mouth, Daily, for back pain with food, # 30 tablet, 6 Refills, Maintenance, 04/30/21 14:59:00 EST, Tablet, [facility]/pharmacy #[id number], Partial fill upon patient request if the prescriptionis for a schedule II opioid drug., 168, cm, 04/12... Start Date: 04/30/21 Status: OrderedSenna 8.6 mg oral tablet 17.2 mg, 2, tablet, By Mouth, Daily at bedtime, PRN, with plenty of water, # 60 tablet, Refills 6, Tot. Refills 6, Maintenance, Constipation, 04/30/21 14:59:00 EST, Route to Pharmacy Electronically, [facility]/pharmacy #[id number] Tablet, Partial fill upon patient... Start Date: 04/30/21 Status: Orderedsertraline 50 mg oral tablet 1 tablet = 50 mg, By Mouth, Daily at bedtime, for anxiety, # 30 tablet, 3 Refills, Maintenance, 07/09/21 11:27:00 EST, Tablet, [facility]/pharmacy #[id number], Partial fill upon patient request if [...] team information PersonnelName: Cadence Bryant Address: Address: [address] [place] [address]
--- OUTSIDE RECORDS SUMMARY | 2022-07-23 18:30 | XMS_ITS | Continuity of Care Document ---
:1975 Author Organization [facility] enter/[facility] Address Unavailable , Care Team Providers Name Role Phone Cadence Bryant Primary Care Physician [id number] Date(s): 05/30/21 - 07/25/21 [facility] Attending Physician: Cadence Bryant Allergies, Adverse Reactions, [...] 04/30/21 14:59:00 EST, Route to Pharmacy Electronically, [facility]/pharmacy #[id number], 168, cm, 04/30/21 13:49:00 EST, Height Start Date: 04/30/21 Status: Orderedcyclobenzaprine 5 mg oral tablet 1 tablet, By Mouth, 2 times a day, FOR BACK PAIN., # 60 tablet, 6 Refills, Maintenance, 04/30/21 14:59:00 EST, [facility]/pharmacy #[id number], 168, cm, 04/30/21 13:49:00 EST, Height [...]
--- OUTSIDE RECORDS SUMMARY | 2022-07-23 18:30 | XMS_ITS | Continuity of Care Document ---
:1975 Author Organization [facility] Address [address] [place] [address]- Care Team Providers Name Role Phone Not on Staff, PCP Primary Care Physician Unavailable Encounter [facility] Date(s): 11/21/20 - 11/22/[address] [address]- Encounter Diagnosis Chest pain, pleuritic (Final) - 11/22/20 Discharge Disposition: A-D/C Home Attending Physician: Gill Brock DO Admitting Physician: Gill Brock DO Referring Physician: Not on Staff, Referring MD Allergies, Adverse Reactions, Alerts Substance Reaction Severity Status Tylenol with Codeine Active Medications amoxicillin 500 mg oral capsule 1 capsule = 500 mg, By Mouth, 3 times a day, # 21 capsule, 0 Refills, Maintenance Start Date: 08/28/12 Stop Date: 09/04/12 Status: OrderedcloNIDine 0.1 mg oral tablet 0.1 mg, 1, tablet, By Mouth, 2 times a day, # 10 tablet, Refills 0, Tot. Refills 0, Maintenance, 03/08/19 13:40:01 EDT, Print Requisition Start Date: 03/08/19 Status: Ordereddicyclomine 10 mg oral capsule 1 capsule = 10 mg, By Mouth, 4 times a day, PRN Pain , Moderate, # 60 tablet, 6 Refills, Maintenance Start Date: 07/30/10 Stop Date: 02/25/11 Status: OrderedGlycoLax oral powder for reconstitution = 17 Gm, By Mouth, Daily, # 1 bottle, 2 Refills Start Date: 05/25/09 Stop Date: 08/23/09 Status: Orderedibuprofen 600 mg oral tablet 600 mg, 1, tablet, By Mouth, Every 6 hours, # 40 tablet, Refills 0, Tot. Refills 0, Maintenance, 03/08/19 13:42:24 EDT, Print Requisition Start Date: 03/08/19 Status: Orderedomeprazole 20 mg oral enteric coated capsule 1 capsule = 20 mg, By Mouth, Daily, # 30 capsule, 0 Refills, Maintenance, EC Capsule Start Date: 08/28/12 Status: Orderedoxycodone 5 mg oral capsule 1 capsule = 5 mg, By Mouth, Every 6 hours, PRN for pain, # 8 capsule, 0 Refills, Maintenance, Capsule Start Date: 08/28/12 Status: Orderedoxycodone 5 mg oral tablet 1 tablet = 5 mg, By Mouth, Every 4 hours, PRN Pain, # 12 tablet, 0 Refills, Maintenance, Tablet Start Date: 08/01/09 Status: OrderedPepcid 20 mg oral tablet 1 tablet = 20 mg, By Mouth, 2 times a day, # 20 tablet, 0 Refills, Maintenance, 03/08/19 13:42:47 EDT, Tablet Start Date: 03/08/19 Stop Date: 03/18/19 Status: OrderedPrilosec 20 mg oral enteric coated capsule 1 capsule = 20 mg, By Mouth, Daily, Taper dose to one tab every other day for 2 weeks, than one tab every 3 days for two weeks then stop., # 30 capsule, 0 Refills, Maintenance, EC Capsule Start Date: 12/08/09 Stop Date: 01/07/10 Status: Orderedpromethazine 25 mg oral tablet 1 tablet = 25 mg, By Mouth, 2 times a day, # 20 tablet, 0 Refills, Maintenance, 03/08/19 13:41:32 EDT, Tablet Start Date: 03/08/19 Stop Date: 03/18/19 Status: Ordered Results Radiology Reports Exam Date Time Procedure Performing Provider Status 11/21/20 9:56 PM Chest 2 Views Frontal and Lat Stef Lozano [facility] (Verified) Notes:(Chest 2 Views Frontal and Lat) Reason For Exam: Chest Pain;Other:RESULT: Chest 2 Views Frontal and Lat Chest 2 Views Frontal and Lat Hx of Present Illness: pt coming in with CP SOB. States he has been out of his asthma medication feeling more SOB. COMPARISON: None. FINDINGS: LINES AND TUBES: None. LUNGS AND PLEURA: Clear lungs. Normal pulmonary vascularity. No pleural effusion. No pneumothorax. HEART, MEDIASTINUM AND ARON: Heart is normal in size. Normal upper mediastinal and hilar contour. BONES AND SOFT TISSUES: No acute abnormality. IMPRESSION: No acute abnormality. WSN: [id number] Ordering Physician: Dede Salomon Dictated By: Erwin Antonio DO Dictated Date/Time: 11/21/20 10:09 p Reviewed By: Erwin Antonio DO Signed By: Erwin Antonio DO Signed Date/Time: 11/21/20 10:09 pm Transcribed By: UMM Transcribed Date/Time: 11/21/20 10:08 pm Vital Signs Most recent to oldest 1 2 3 [Reference Range]: Oxygen Saturation [94-100 %] 100 % 99 % 100 % (11/22/20 2:42 AM) (11/22/20 2:11 AM) (11/21/20 11: 30 PM) Pulse Rate [55-90 bpm] 60 bpm 55 bpm 66 bpm (11/22/20 2:42 AM) (11/22/20 2:11 AM) (11/21/20 11: 30 PM) Blood Pressure [90-138/55-84 110/62 mm Hg 117/65 mm Hg 128 /87 mm Hg mm Hg] (11/22/20 2:42 AM) (11/22/20 2:11 AM) (11/21/20 11: 30 PM) Respiratory Rate [16-30 20 br/min 18 br/min 16 br/mi n br/min] (11/22/20 2:42 AM) (11/22/20 2:11 AM) (11/21/20 11: 30 PM) Temperature [96.8-100.4 DegF] 98.2 DegF 98.5 DegF 97 .9 DegF (11/22/20 2:42 AM) (11/21/20 11:30 PM) (11/21/20 8: 50 PM) Mode of Delivery (Oxygen) Room air Room air Room a ir (11/22/20 2:42 AM) (11/22/20 2:11 AM) (11/21/20 11: 30 PM) Blood pressure sites Arm, left Arm, right Arm, right (11/22/20 2:42 AM) (11/22/20 2:11 AM) (11/21/20 11: 30 PM) Temperature Route Oral Oral Oral (11/22/20 2:42 AM) (11/21/20 11:30 PM) (11/21/20 8: 50 PM) Social History Social History Type Response Smoking Status Current every day smoker; Ty pe: Cigarettes; Other: 1/2ppd cigarettes per day; entered on: 07/22/17 Sex
--- OUTSIDE RECORDS SUMMARY | 2022-07-23 18:30 | XMS_ITS | Continuity of Care Document ---
:1975 Author Organization [facility] Address [address] [place] [id number]- Care Team Providers Name Role Phone Passer Cadence JOHNS Primary Care Physician [place] [facility] [place] 03/08/22 - 04/07/22 [facility] [place] [facility] [address]- [place] Allergies, Adverse Reactions, Alerts Substance Reaction [...] EST, Route to Pharmacy Electronically, [facility]/pharmacy #[id number], 168, cm, 04/30/21 13:49:00 EST, Height Start Date: 04/30/21 Status: Orderedcyclobenzaprine 5 mg oral tablet 1 tablet, By Mouth, 2 times a day, PRN NEEDED FOR BACK PAIN, # 47 tablet, 0 Refills, Maintenance,03/20/22 13:20:00 EST, [facility]-, 168, cm, 12/10/21 10:46:00 EDT, Height Start Date: 03/20/22 Status: Orderedgabapentin 300 mg oral capsule 300 mg, 1, capsule, By Mouth, Daily at bedtime, for nerve pain, # 30 capsule, Refills 6, Tot. Refills 6, Maintenance, 02/08/22 16:45:00 EDT, Route to Pharmacy Electronically, [facility]-, Partial fill upon patient request if th... Start Date: 02/08/22 Status: Orderedhydrocortisone topical 25 mg suppository 1 supp = 25 mg, Rectally, 2 times a day, # 28 supp, 1 Refills, Maintenance, 12/10/21 10:58:00 EDT, Suppository, [facility]-, Partial fill upon patient request if the prescription is for a schedule II opioid drug., 168, cm, ... Start Date: 12/10/21 Stop Date: 01/07/22 Status: OrderedMiraLax oral powder for reconstitution = 17 Gm, By Mouth, 2 times a day before breakfast and dinne, dissolve in water before taking, # 255 Gm, 2 Refills, Maintenance, 12/10/21 10:58:00 EDT, REC Powder, [facility]-, Partial fill upon patient request if the prescripti... Start Date: 12/10/21 Status: OrderedMobic 15 mg oral tablet 1 tablet = 15 mg, By Mouth, Daily, for back pain with food, # 30 tablet, 6 Refills, Maintenance, 04/30/21 14:59:00 EST, Tablet, [facility]/pharmacy #[id number], Partial fill upon patient request if the prescriptionis for a schedule II opioid drug., 168, cm, 2... Start Date: 04/30/21 Status: OrderedSenna 8.6 mg oral tablet 17.2 mg, 2, tablet, By Mouth, Daily at bedtime, PRN, with plenty of water, # 60 tablet, Refills 6, Tot. Refills 6, Maintenance, Constipation, 04/30/21 14:59:00 EST, Route to Pharmacy Electronically, [facility]/pharmacy #[id number] Tablet, Partial fill upon patient... Start Date: 04/30/21 Status: Orderedsertraline 50 mg oral tablet 1 tablet = 50 mg, By Mouth, Daily at bedtime, for anxiety, # 30 tablet, 3 Refills, Maintenance, 07/09/21 11:27:00 EST, Tablet, [facility]/pharmacy #[id number], Partial fill upon patient request if the [...] information Care Team PersonnelName: Cadence Bryant Position: [facility] PCO Associate Professional Member Role: PCP Address: Address: [address] [place] [address]- Care Team Related PersonsName: RAÚL CRISTOBAL Address: home [address] [place] [address] FIRST FLOOR [phone] [place] [address] Name: KAYLAH WEAVER
--- OUTSIDE RECORDS SUMMARY | 2022-07-23 18:30 | XMS_ITS | Continuity of Care Document ---
:1975 Author Organization [facility] Address [address] [place] [address]- Care Team Providers Name Role Phone Passer Cadence JOHNS Primary Care Physician Encounter [facility] Date(s): 01/08/22 - 02/07/22 [facility] [address]- [place] Allergies, Adverse Reactions, Alerts Substance Reaction [...] Route to Pharmacy Electronically, [facility]/pharmacy #1, 168, cm, 04/30/21 13:49:00 EST, Height Start Date: 04/30/21 Status: Orderedcyclobenzaprine 5 mg oral tablet See Instructions, TAKE 1 TABLET BY MOUTH TWICE A DAY NEEDED FOR BACK PAIN, # 56 tablet, 2 Refills, Maintenance, 01/10/22 17:30:00 EDT, [facility]-, 168, cm, 12/10/21 10:46:00EDT, Height Start Date: 01/10/22 Status: Orderedcyclobenzaprine 5 mg oral tablet 1 tablet, By Mouth, 2 times a day, FOR BACK PAIN., # 60 tablet, 0 Refills, Maintenance, 12/14/21 12:23:00 EDT, [facility]-, 168, cm, 12/10/21 10:46:00 EDT, Height Start Date: 12/14/21 Status: Orderedgabapentin 300 mg oral capsule 300 mg, 1, capsule, By Mouth, Daily at bedtime, for nerve pain, # 30 capsule, Refills 6, Tot. Refills 6, Maintenance, 04/30/21 14:59:00 EST, Route to Pharmacy Electronically, [facility]/pharmacy #[id number], Partial fill upon patient request if the prescription is... Start Date: 04/30/21 Status: Orderedhydrocortisone topical 25 mg suppository 1 supp = 25 mg, Rectally, 2 times a day, # 28 supp, 1 Refills, Maintenance, 12/10/21 10:58:00 EDT, Suppository, [facility]-, Partial fill upon patient request if the prescription is for a schedule II opioid drug., 168, cm, 0... Start Date: 12/10/21 Stop Date: 01/07/22 Status: OrderedMiraLax oral powder for reconstitution = 17 Gm, By Mouth, 2 times a day before breakfast and dinne, dissolve in water before taking, # 255 Gm, 2 Refills, Maintenance, 12/10/21 10:58:00 EDT, REC Powder, [facility]-, Partial fill upon patient request if the prescripti... Start Date: 12/10/21 Status: OrderedMobic 15 mg oral tablet 1 tablet = 15 mg, By Mouth, Daily, for back pain with food, # 30 tablet, 6 Refills, Maintenance, 04/30/21 14:59:00 EST, Tablet, [facility]/pharmacy #[id number], Partial fill upon patient request if the prescriptionis for a schedule II opioid drug., 168, cm, 122... Start Date: 04/30/21 Status: OrderedSenna 8.6 mg [...] 07/09/21 11:27:00 EST, Tablet, [facility]/pharmacy #[id number], Partial [...] team information PersonnelName: Cadence Bryant Address: Address: [address] [place] [address]-
--- OUTSIDE RECORDS SUMMARY | 2022-07-23 18:30 | XMS_ITS | Continuity of Care Document ---
:1975 Author Organization [facility] enter/[facility] Address Unavailable , Care Team Providers Name Role Phone Cadence Bryant Primary Care Physician [place] [facility] [place] 04[place]/21 - 05/07/21 [facility] Attending Physician: Cadence Bryant Allergies, Adverse Reactions, [...] 14:59:00 EST, Route to Pharmacy Electronically, [facility]/pharmacy #[id number], 168, cm, 04/30/21 13:49:00 EST, Height Start Date: 04/30/21 Status: Orderedcyclobenzaprine 5 mg oral tablet 1 tablet, By Mouth, 2 times a day, FOR BACK PAIN., # 60 tablet, 6 Refills, Maintenance, 04/30/21 14:59:00 EST, [facility]/pharmacy #[id number], 168, cm, 04/30/21 13:49:00 EST, Height Start Date: 04/30/21 Status: Orderedgabapentin 300 mg oral capsule 300 mg, 1, capsule, By Mouth, Daily at bedtime, for nerve pain, # 30 capsule, Refills 6, Tot. Refills 6, Maintenance, 04/30/21 14:59:00 EST, Route to Pharmacy Electronically, [facility]/pharmacy #[id number], Partial fill upon patient [...] 14:59:00 EST, Route to Pharmacy Electronically, [facility]/pharmacy #[id number] Tablet, Partial fill upon patient... 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) Cigarette smoker(Confirmed) Active History of substance abuse(Confirmed) Active Vital Signs Most recent to oldest [Reference Range]: 1 Height 168 cm (04/30/21 1:49 PM) Weight 83.18 kg (04/30/21 1:49 PM) Oxygen Saturation [94-100 %] 99 % (04/30/21 1:49 PM) Pulse Rate [55-90 bpm] 82 bpm (04/30/21 1:49 PM) Body Mass Index [18.5-24.99] 29.47 *H* (04/30/21 1:49 PM) Blood Pressure [90-138/55-84 mm Hg] 94/61 mm Hg (04/30/21 1:49 PM) Respiratory Rate [16-30 br/min] 16 br/min (04/30/21 1:49 PM) Temperature [96.8-100.4 DegF] 98.1 DegF (04/30/21 1:49 PM) Mode of Delivery (Oxygen) Room air (04/30/21 1:49 PM) Blood pressure sites Arm, left (04/30/21 1:49 PM) Temperature Route Oral (04/30/21 1:49 PM) Weight Obtained Via Standing scale (04/30/21 1:49 PM) Social History Social History Type Response Smoking Status 10 or more cigarettes (1/2 p ack or more)/day in last 30 days; Total pack years: 14; Number of years: 20; entered on: 02/12/21 Sex
--- OUTSIDE RECORDS SUMMARY | 2022-07-23 18:30 | XMS_ITS | Continuity of Care Document ---
:1975 Author Organization [facility] Address [address] [place] [address]- Care Team Providers Name Role Phone Passer Cadence JOHNS Primary Care Physician Encounter [facility] Date(s): 04/02/22 - 05/02/22 [facility] [address]- [place] Allergies, Adverse Reactions, Alerts Substance Reaction [...] 04/30/21 14:59:00 EST, Route to Pharmacy Electronically, [facility]/pharmacy #[id number], 168, cm, 04/30/21 13:49:00 EST, Height Start Date: 04/30/21 Status: Orderedcyclobenzaprine 5 mg oral tablet 1 tablet, By Mouth, 2 times a day, PRN NEEDED FOR BACK PAIN, # 47 tablet, 1 Refills, Maintenance,04/26/22 10:41:00 EST, [facility]-, 168, cm, 03/28/22 9:09:00 EST, Height Start Date: 04/26/22 Status: Orderedgabapentin 300 mg oral capsule 300 mg, 1, capsule, By Mouth, Daily at bedtime, for nerve pain, # 30 capsule, Refills 6, Tot. Refills 6, Maintenance, 02/08/22 16:45:00 EDT, Route to Pharmacy Electronically, [facility]-, Partial fill upon patient request if th... Start Date: 02/08/22 Status: Orderedhydrocortisone topical 25 mg suppository 1 supp = 25 mg, Rectally, 2 times a day, # 28 supp, 1 Refills, Maintenance, 12/10/21 10:58:00 EDT, Suppository, [facility]-, Partial fill upon patient request if the prescription is for a schedule II opioid drug., 168, cm, ... Start Date: 12/10/21 Stop Date: 01/07/22 Status: OrderedMiraLax oral powder for reconstitution = 17 Gm, By Mouth, 2 times a day before breakfast and dinne, dissolve in water before taking, # 255 Gm, 2 Refills, Maintenance, 12/10/21 10:58:00 EDT, REC Powder, [facility]-, Partial fill upon patient request if the prescripti... Start Date: 12/10/21 Status: OrderedMobic 15 mg oral tablet 1 tablet = 15 mg, By Mouth, Daily, for back pain with food, # 30 tablet, 6 Refills, Maintenance, 04/30/21 14:59:00 EST, Tablet, [facility]/pharmacy #[id number], Partial fill upon patient request if the prescriptionis for a schedule II opioid drug., 168, cm, 2... Start Date: 04/30/21 Status: OrderedSenna 8.6 mg oral tablet 17.2 mg, 2, tablet, By Mouth, Daily at bedtime, PRN, with plenty of water, # 60 tablet, Refills 6, Tot. Refills 6, Maintenance, Constipation, 04/30/21 14:59:00 EST, Route to Pharmacy Electronically, [facility]/pharmacy #[id number] Tablet, Partial fill upon patient... Start Date: 04/30/21 Status: Orderedsertraline 50 mg oral tablet 1 tablet = 50 mg, By Mouth, Daily at bedtime, for anxiety, # 30 tablet, 3 Refills, Maintenance, 07/09/21 11:27:00 EST, Tablet, [facility]/pharmacy #[id number], Partial fill upon patient request if the [...] information Care Team PersonnelName: Cadence Bryant Position: [facility] PCO Associate Professional Member Role: PCP Address: Address: [address] [place] [address]- Care Team Related PersonsName: RAÚL CRISTOBAL Address: home [address] [place] [address] FIRST FLOOR [phone] [place] [address] Name: KAYLAH WEAVER
--- OUTSIDE RECORDS SUMMARY | 2022-07-23 18:30 | XMS_ITS | Continuity of Care Document ---
:1975 Author Organization [facility] enter/[facility] Address Unavailable , Care Team Providers Name Role Phone Cadence Bryant Primary Care Physician En[place] [facility] Date(s): 04/16/21 - 04/23/21 [facility] Attending Physician: Cadence Bryant Allergies, Adverse Reactions, [...] EDT, Print Requisition Start Date: 03/08/19 Status: Orderedcyclobenzaprine 5 mg oral tablet 1 tablet, By Mouth, 2 times a day, FOR BACK PAIN., # 60 tablet, 0 Refills, [facility]-, 168, cm, 02/12/21 8:19:00 EDT, Height Start Date: 03/12/21 Status: OrderedMobic 15 mg oral tablet 1 tablet = 15 mg, By Mouth, Daily, for back pain with food, # 30 tablet, 3 Refills, Maintenance, 02/12/21 8:54:00 EDT, [facility] fill upon patient request if the prescription is for a schedule II opioid drug... Start Date: 02/12/21 Status: OrderedSenna 8.6 mg oral tablet 17.2 mg, 2, tablet, By Mouth, Daily at bedtime, PRN, with plenty of water, # 60 tablet, Refills 6, Tot. Refills 6, Maintenance, Constipation, 02/12/21 8:55:00 EDT, Route to Pharmacy Electronically, [facility] Chris Tablet, Partial f... Start Date: 02/12/21 Status: Ordered Problem List Condition Effective Dates [...]
--- OUTSIDE RECORDS SUMMARY | 2022-07-23 18:30 | XMS_ITS | Continuity of Care Document ---
:1975 Author Organization [facility] Address [address] [place] [address]- Care Team Providers Name Role Phone Passer Cadence JOHNS Primary Care Physician [phone] [place] [facility] Date(s): 03/19/22 - 04/18/22 [facility] [address]- [place] Allergies, Adverse Reactions, Alerts Substance Reaction [...] 04/30/21 14:59:00 EST, Route to Pharmacy Electronically, [facility]/pharmacy #1, 168, cm, 04/30/21 13:49:00 EST, Height Start Date: 04/30/21 Status: Orderedcyclobenzaprine 5 mg oral tablet 1 tablet, By Mouth, 2 times a day, PRN NEEDED FOR BACK PAIN, # 47 tablet, 0 Refills, Maintenance,03/20/22 13:20:00 EST, [facility]-, 168, cm, 12/10/21 10:46:00 EDT, Height Start Date: 03/20/22 Status: Orderedgabapentin 300 mg oral capsule 300 mg, 1, capsule, By Mouth, Daily at bedtime, for nerve pain, # 30 capsule, Refills 6, Tot. Refills 6, Maintenance, 02/08/22 16:45:00 EDT, Route to Pharmacy Electronically, [facility]-, Partial fill upon patient request if th... Start Date: 02/08/22 Status: Orderedhydrocortisone topical 25 mg suppository 1 supp = 25 mg, Rectally, 2 times a day, # 28 supp, 1 Refills, Maintenance, 12/10/21 10:58:00 EDT, Suppository, [facility]-, Partial fill upon patient request if the prescription is for a schedule II opioid drug., 168, cm, ... Start Date: 12/10/21 Stop Date: 01/07/22 Status: OrderedMiraLax oral powder for reconstitution = 17 Gm, By Mouth, 2 times a day before breakfast and dinne, dissolve in water before taking, # 255 Gm, 2 Refills, Maintenance, 12/10/21 10:58:00 EDT, REC Powder, [facility]-, Partial fill upon patient request if the prescripti... Start Date: 12/10/21 Status: OrderedMobic 15 mg oral tablet 1 tablet = 15 mg, By Mouth, Daily, for back pain with food, # 30 tablet, 6 Refills, Maintenance, 04/30/21 14:59:00 EST, Tablet, [facility]/pharmacy #[id number], Partial fill upon patient request if the prescriptionis for a schedule II opioid drug., 168, cm, 2... Start Date: 04/30/21 Status: OrderedSenna 8.6 mg oral tablet 17.2 mg, 2, tablet, By Mouth, Daily at bedtime, PRN, with plenty of water, # 60 tablet, Refills 6, Tot. Refills 6, Maintenance, Constipation, 04/30/21 14:59:00 EST, Route to Pharmacy Electronically, [facility]/pharmacy #[id number] Tablet, Partial fill upon patient... Start Date: 04/30/21 Status: Orderedsertraline 50 mg oral tablet 1 tablet = 50 mg, By Mouth, Daily at bedtime, for anxiety, # 30 tablet, 3 Refills, Maintenance, 07/09/21 11:27:00 EST, Tablet, [facility]/pharmacy #[id number], Partial fill upon patient request if the [...] information Care Team PersonnelName: Cadence Bryant Position: [facility] PCO Associate Professional Member Role: PCP Address: Address: [address] [place] [address]- Care Team Related PersonsName: RAÚL CRISTOBAL Address: home [address] [place] [address] FIRST FLOOR [phone] [place] [address] Name: KAYLAH WEAVER
--- OUTSIDE RECORDS SUMMARY | 2022-07-23 18:30 | XMS_ITS | Continuity of Care Document ---
:1975 Author Organization [address] [place] [address]- Care Team Providers Name Role Phone Passer Cadence JOHNS Primary Care Physician Encounter [facility] [place] Date(s): 12/10/21 - 01/09/[address] [place] [address] Attending Physician: Admtr, Althea Admitting Physician: AdmtrAlthea Referring Physician: Admtr, Ar8 Allergies, Adverse Reactions, [...] 04/30/21 14:59:00 EST, Route to Pharmacy Electronically, [facility]/pharmacy #[id number], 168, cm, 04/30/21 13:49:00 EST, Height Start Date: 04/30/21 Status: Orderedcyclobenzaprine 5 mg oral tablet 1 tablet, By Mouth, 2 times a day, FOR BACK PAIN., # 60 tablet, 0 Refills, Maintenance, 12/14/21 12:23:00 EDT, [facility]-, 168, cm, 12/10/21 10:46:00 EDT, Height Start Date: 12/14/21 Status: Orderedcyclobenzaprine 5 mg oral tablet See Instructions, TAKE 1 TABLET BY MOUTH TWICE A DAY NEEDED FOR BACK PAIN, # 56 tablet, 0 Refills, Maintenance, 01/09/22 13:35:00 EDT, [facility] , 168, cm, 12/10/21 10:46:00 EDT, Height Start Date: 01/09/22 Status: Orderedgabapentin 300 mg oral capsule 300 mg, 1, capsule, By Mouth, Daily at bedtime, for nerve pain, # 30 capsule, Refills 6, Tot. Refills 6, Maintenance, 04/30/21 14:59:00 EST, Route to Pharmacy Electronically, [facility]/pharmacy #[id number], Partial fill upon patient request if the prescription is... Start Date: 04/30/21 Status: Orderedhydrocortisone topical 25 mg suppository 1 supp = 25 mg, Rectally, 2 times a day, # 28 supp, 1 Refills, Maintenance, 12/10/21 10:58:00 EDT, Suppository, [facility]-, Partial fill upon patient request if the prescription is for a schedule II opioid drug., 168, cm, 0... Start Date: 12/10/21 Stop Date: 01/07/22 Status: OrderedMiraLax oral powder for reconstitution = 17 Gm, By Mouth, 2 times a day before breakfast and dinne, dissolve in water before taking, # 255 Gm, 2 Refills, Maintenance, 12/10/21 10:58:00 EDT, REC Powder, [facility]-, Partial fill upon patient request if the prescripti... Start Date: 12/10/21 Status: OrderedMobic 15 mg oral tablet 1 tablet = 15 mg, By Mouth, Daily, for back pain with food, # 30 tablet, 6 Refills, Maintenance, 04/30/21 14:59:00 EST, Tablet, [facility]/pharmacy #[id number], Partial fill upon patient request if the prescriptionis for a schedule II opioid drug., 168, cm, 2... Start Date: 04/30/21 Status: OrderedSenna 8.6 mg oral tablet 17.2 mg, 2, tablet, By Mouth, Daily at bedtime, PRN, with plenty of water, # 60 tablet, Refills 6, Tot. Refills 6, Maintenance, Constipation, 04/30/21 14:59:00 EST, Route to Pharmacy Electronically, [facility]/pharmacy #[id number] Tablet, Partial fill upon patient... Start Date: 04/30/21 Status: Orderedsertraline 50 mg oral tablet 1 tablet = 50 mg, By Mouth, Daily at bedtime, for anxiety, # 30 tablet, 3 Refills, Maintenance, 07/09/21 11:27:00 EST, Tablet, [facility]/pharmacy #[id number], Partial fill upon patient request [...] of years: 20; entered on: 02/12/21 Sex Care Team PersonnelName: Cadence Bryant Address: [address] [place] [address]
--- OUTSIDE RECORDS SUMMARY | 2022-07-23 18:30 | XMS_ITS | Continuity of Care Document ---
:1975 Author Organization [facility] enter/[facility] Address Unavailable , Care Team Providers Name Role Phone Cadence Bryant Primary Care Physician Encounter [facility] [place] Date(s): 02/12/21 - 02/19/21 [facility] Attending Physician: Cadence Bryant Allergies, [...] Status: Orderedcyclobenzaprine 5 mg oral tablet 1 tablet = 5 mg, By Mouth, 2 times a day, for back pain, # 60 tablet, 2 Refills, Maintenance, 02/12/21 8:55:00 EDT, [facility]-, Partial fill upon patient request if the prescription is for a schedule II opioid drug., 168, cm,... Start Date: 02/12/21 Status: OrderedMobic 15 mg oral tablet 1 tablet = 15 mg, By Mouth, Daily, for back pain with food, # 30 tablet, 3 Refills, Maintenance, 02/12/21 8:54:00 EDT, Tablet, [facility], Partial fill upon patient request if the prescription is for a schedule II opioid drug... Start Date: 02/12/21 Status: OrderedSenna 8.6 mg oral tablet 17.2 mg, 2, tablet, By Mouth, Daily at bedtime, PRN, with plenty of water, # 60 tablet, Refills 6, Tot. Refills 6, Maintenance, Constipation, 02/12/21 8:55:00 EDT, Route to Pharmacy Electronically, [facility] Tablet, Partial f... 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) Cigarette smoker(Confirmed) Active History of substance abuse(Confirmed) Active Procedures Procedure Date Related Diagnosis Body Site Status Rhinoplasty- 1999 Completed Vital Signs Most recent to oldest [Reference Range]: 1 Height 168 cm (02/12/21 8:19 AM) Weight 82.72 kg (02/12/21 8:19 AM) Oxygen Saturation [94-100 %] 98 % (02/12/21 8:19 AM) Pulse Rate [55-90 bpm] 99 bpm *H* (02/12/21 8:19 AM) Body Mass Index [18.5-24.99] 29.31 *H* (02/12/21 8:19 AM) Blood Pressure [90-138/55-84 mm Hg] 107/71 mm Hg (02/12/21 8:19 AM) Temperature [96.8-100.4 DegF] 98.7 DegF (02/12/21 8:19 AM) Mode of Delivery (Oxygen) Room air (02/12/21 8:19 AM) Blood pressure sites Arm, left (02/12/21 8:19 AM) Temperature Route Oral (02/12/21 8:19 AM) Weight Obtained Via Standing scale (02/12/21 8:19 AM) Social History Social History Type Response Smoking Status 10 or more cigarettes (1/2 p ack or more)/day in last 30 days; Number of years: 20; Total pack years: 14; entered on: 02/12/21 Sex
--- OUTSIDE RECORDS SUMMARY | 2022-07-23 18:30 | XMS_ITS | Continuity of Care Document ---
:1975 Author Organization [facility] enter/[facility] Address Unavailable , Care Team Providers Name Role Phone Cadence Bryant [id number] Date(s): 08/20/21 - 08/27/21 [facility] Attending Physician: Cadence Bryant Allergies, Adverse [...] 04/30/21 14:59:00 EST, Route to Pharmacy Electronically, [facility]/pharmacy #[id number], 168, cm, 04/30/21 13:49:00 EST, Height Start Date: 04/30/21 Status: Orderedcyclobenzaprine 5 mg oral tablet 1 tablet, By Mouth, 2 times a day, FOR BACK PAIN., # 60 tablet, 6 Refills, Maintenance, 04/30/21 14:59:00 EST, [facility]/pharmacy #[id number], 168, cm, 04/30/21 13:49:00 EST, [...] oldest [Reference Range]: 1 Height 168 cm (08/20/21 10:29 AM) Weight 79.54 kg (08/20/21 10:29 AM) Oxygen Saturation [94-100 %] 98 % (08/20/21 10:29 AM) Pulse Rate [55-90 bpm] 83 bpm (4/11/22 10:29 AM) Body Mass Index [18.5-24.99] 28.18 *H* (08/20/21 10:29 AM) Blood Pressure [90-138/55-84 mm Hg] 98/62 mm Hg (08/20/21 10:29 AM) Respiratory Rate [16-30 br/min] 12 br/min *L* (08/20/21 10: AM) Temperature [96.8-100.4 DegF] 98.3 DegF (08/20/21 10:29 AM) Mode of Delivery (Oxygen) Room air (08/20/21 10:29 AM) Blood pressure sites Arm, left (08/20/21 10:29 AM) Temperature Route Oral (08/20/21 10:29 AM) Weight Obtained Via Standing scale (08/20/21 10:29 AM) Social History Social History Type Response Smoking Status 10 or more cigarettes (1/2 p ack or more)/day in last 30 days; Number of years: 20; Total pack years: 14; entered on: 02/12/21 Sex
--- OUTSIDE RECORDS SUMMARY | 2022-07-23 18:30 | XMS_ITS | Continuity of Care Document ---
:1975 Author Organization [facility] enter/[facility] Address Unavailable , Care Team Providers Name Role Phone Passer Cadence JOHNS Primary Care Physician Encounter [facility] [place] Date(s): 10/22/21 - 11/21/21 [facility] Attending Physician: Althea Robert Admitting Physician: Althea Robert Referring Physician: Althea Robert Allergies, Adverse Reactions, Alerts Substance Reaction Severity [...] 04/30/21 14:59:00 EST, Route to Pharmacy Electronically, [facility]/pharmacy #[id number], 168, cm, 04/30/21 13:49:00 EST, Height Start Date: 04/30/21 Status: Orderedcyclobenzaprine 5 mg oral tablet 1 tablet, By Mouth, 2 times a day, FOR BACK PAIN., # 60 tablet, 6 Refills, Maintenance, 04/30/21 14:59:00 EST, [facility]/pharmacy #[id number], 168, cm, 04/30/21 13:49:00 [...]
--- OUTSIDE RECORDS SUMMARY | 2022-07-23 18:30 | XMS_ITS | Continuity of Care Document ---
:1975 Author Organization [facility] enter/[facility] Address Unavailable , Care Team Providers Name Role Phone Cadence Bryant Primary Care Physician En[facility] [id number] Date(s): 03/05/21 - 04/11/21 [facility] Attending Physician: Cadence Bryant Allergies, Adverse Reactions, [...] BACK PAIN., # 60 tablet, 0 Refills, [employer]-, 168, cm, 02/12/21 8:19:00 EDT, Height Start Date: 03/12/21 Status: OrderedMobic 15 mg oral tablet 1 tablet = 15 mg, By Mouth, Daily, for back pain with food, # 30 tablet, 3 Refills, Maintenance, 02/12/21 8:54:00 EDT, Tablet, [facility] Partial fill upon patient request if the prescription is for a schedule II opioid drug... Start Date: 02/12/21 Status: OrderedSenna 8.6 mg oral tablet 17.2 mg, 2, tablet, By Mouth, Daily at bedtime, PRN, with plenty of water, # 60 tablet, Refills 6, Tot. Refills 6, Maintenance, Constipation, 02/12/21 8:55:00 EDT, Route to Pharmacy Electronically, [place] [id number] Tablet, Partial f... Start Date: 02/12/21 Status: [...]
--- OUTSIDE RECORDS SUMMARY | 2022-07-23 18:30 | XMS_ITS | Continuity of Care Document ---
:1975 Author Organization [facility] Address Unavailable , Care Team Providers Name Role Phone Passer Cadence JOHNS Primary Care Physician Encounter [facility] [place] Date(s): 06/26/21 - 07/26/21 [facility] Allergies, Adverse Reactions, Alerts Substance Reaction Severity [...] 04/30/21 14:59:00 EST, Route to Pharmacy Electronically, [facility]/pharmacy #[id number], 168, cm, 04/30/21 13:49:00 EST, Height Start Date: 04/30/21 Status: Orderedcyclobenzaprine 5 mg oral tablet 1 tablet, By Mouth, 2 times a day, FOR BACK PAIN., # 60 tablet, 6 Refills, Maintenance, 04/30/21 14:59:00 EST, [facility]/pharmacy #[id number], 168, cm, 04/30/21 13:49:00 [...]
--- OUTSIDE RECORDS SUMMARY | 2022-07-23 18:30 | XMS_ITS | Continuity of Care Document ---
:1975 Author Organization [facility] enter/[facility] Address [address] [place] [address]- Care Team Providers Name Role Phone Passer Cadence JOHNS Primary Care Physician [phone] [id number] Date(s[facility] 03/29/22 - 07/05/22 [facility] [address]- Attending Physician: Not on Staff, Attending MD Allergies, Adverse Reactions, Alerts Substance Reaction [...] 07/03/22 8:33:00 EST, Route to Pharmacy Electronically, [facility]/pharmacy #[id number], 168, cm, 07/03/22 8:08:00 EST, Height Start [...] 07/03/22 8:33:00 EST, Route to Pharmacy Electronically, [facility]/pharmacy #[id number], Partialfill upon patient request if the prescription is... Start Date: 07/03/22 Status: Orderedhydrocortisone topical 25 mg suppository 1 supp = 25 mg, Rectally, 2 times a day, # 28 supp, 1 Refills, Maintenance, 12/10/21 10:58:00 EDT, Suppository, [facility], Partial fill upon patient request if the prescription is for a schedule II opioid drug., 168, cm, ... Start Date: 12/10/21 Stop Date: 01/07/22 Status: OrderedhydrOXYzine hydrochloride 25 mg oral tablet 1 tablet = 25 mg, By Mouth, 2 times a day, PRN for anxiety, # 60 tablet, 2 Refills, Maintenance, 07/03/22 8:33:00 EST, Tablet, [facility]/pharmacy #[id number], Partial fill upon patient request if the prescription is for a schedule II opioid drug., 168, cm, ... Start Date: 07/03/22 Status: OrderedMiraLax oral powder for reconstitution = 17 Gm, By Mouth, 2 times a day before breakfast and dinne, dissolve in water before taking, # 255 Gm, 6 Refills, Maintenance, 07/03/22 8:33:00 EST, REC Powder, [facility]/pharmacy #[id number], Partial fill upon patient request if the prescription is for a schedu... Start Date: 07/03/22 Status: OrderedMobic 15 mg oral tablet 1 tablet = 15 mg, By Mouth, Daily, for back pain with food, # 90 tablet, 1 Refills, Maintenance, 07/03/22 8:33:00 EST, Tablet, [facility]/pharmacy #[id number], Partial fill upon patient request if the prescription is for a schedule II opioid drug., 168, cm, 07/03... Start Date: 07/03/22 Status: OrderedSenna 8.6 mg oral tablet 17.2 mg, 2, tablet, By Mouth, Daily at bedtime, PRN, with plenty of water, # 180 tablet, Refills 3, Tot. Refills 3, Maintenance, Constipation, 07/03/22 8:33:00 EST, Route to Pharmacy Electronically, [facility]/pharmacy #[id number] Tablet, Partial fill upon [...] information Care Team PersonnelName: Cadence Bryant Position: [facility] PCO Associate Professional Member Role: PCP Address: Address: [address] [place] [address]- Care Team Related PersonsName: RAÚL CRISTOBAL Address: home [address] [facility] FIRST FLOOR [phone] [place] [address] Name: KAYLAH WEAVER
--- OUTSIDE RECORDS SUMMARY | 2022-07-23 18:30 | XMS_ITS | Continuity of Care Document ---
:1975 Author Organization [facility] enter/[facility] Address Unavailable , Care Team Providers Name Role Phone Cadence Bryant Primary Care Physician [phone] Encounter [facility] Date(s): 02/12/21 - 05/16/21 [facility] Attending Physician: Cadence Bryant Allergies, [...] 14:59:00 EST, Route to Pharmacy Electronically, [facility]/pharmacy #[id number], 168, cm, 04/30/21 13:49:00 EST, Height Start Date: 04/30/21 Status: Orderedcyclobenzaprine 5 mg oral tablet 1 tablet, By Mouth, 2 times a day, FOR BACK PAIN., # 60 tablet, 6 Refills, Maintenance, 04/30/21 14:59:00 EST, [facility]/pharmacy #[id number], 168, cm, 04/30/21 13:49:00 EST, Height Start [...] 14:59:00 EST, Route to Pharmacy Electronically, [facility]/pharmacy #[id number] Tablet, Partial fill upon patient... [...]
--- OUTSIDE RECORDS SUMMARY | 2022-07-23 18:30 | XMS_ITS | Continuity of Care Document ---
:1975 Author Organization [facility] enter/[facility] Address Unavailable , Care Team Providers Name Role Phone Cadence Bryant Primary Care Physician [phone] [place] [facility] 01/16/21 - 02/21/21 [facility] Attending Physician: Cadence Bryant Allergies, Adverse [...] tablet, 2 Refills, Maintenance, 02/12/21 8:55:00 EDT, [facility]-, Partial fill upon patient request if the prescription is for a schedule II opioid drug., 168, cm,... Start Date: 02/12/21 Status: OrderedMobic 15 mg oral tablet 1 tablet = 15 mg, By Mouth, Daily, for back pain with food, # 30 tablet, 3 Refills, Maintenance, 02/12/21 8:54:00 EDT, Tablet, [facility]-, Partial fill upon patient request if the prescription is for a schedule II opioid drug... Start Date: 02/12/21 Status: OrderedSenna 8.6 mg oral tablet 17.2 mg, 2, tablet, By Mouth, Daily at bedtime, PRN, with plenty of water, # 60 tablet, Refills 6, Tot. Refills 6, Maintenance, Constipation, 02/12/21 8:55:00 EDT, Route to Pharmacy Electronically, [facility] Tablet, Partial f... Start Date: 02/12/21 Status: [...]
--- OUTSIDE RECORDS SUMMARY | 2022-07-23 18:30 | XMS_ITS | Continuity of Care Document ---
:1975 Author Organization [facility] Address [address] [place] [address]- Care Team Providers Name Role Phone Passer Cadence JOHNS Primary Care Physician [phone] Encounter [facility] [place] Date(s): 10/04/21 - 11/03/21 [facility] [address] [place] [id number] Attending Physician: Althea Robert Admitting Physician: Althea [...] 14:59:00 EST, Route to Pharmacy Electronically, [facility]/pharmacy #[id number], 168, cm, 04/30/21 13:49:00 EST, Height Start Date: 04/30/21 Status: Orderedcyclobenzaprine 5 mg oral tablet 1 tablet, By Mouth, 2 times a day, FOR BACK PAIN., # 60 tablet, 6 Refills, Maintenance, 04/30/21 14:59:00 EST, [facility]/pharmacy #[id number], 168, cm, 04/30/21 13:49:00 EST, Height Start Date: 04/30/21 Status: Orderedgabapentin 300 mg oral capsule 300 mg, 1, capsule, By Mouth, Daily at bedtime, for nerve pain, # 30 capsule, Refills 6, Tot. Refills 6, Maintenance, 04/30/21 14:59:00 EST, Route to Pharmacy Electronically, [facility]/pharmacy #[id number], Partial fill upon patient request [...] 14:59:00 EST, Route to Pharmacy Electronically, [facility]/pharmacy #[id number] Tablet, Partial fill upon patient... Start Date: 04/30/21 Status: Orderedsertraline 50 mg oral tablet 1 tablet = 50 mg, By Mouth, Daily at bedtime, for anxiety, # 30 tablet, 3 Refills, Maintenance, 07/09/21 11:27:00 EST, Tablet, [facility]/pharmacy #[id number], Partial fill upon patient request [...]
--- OUTSIDE RECORDS SUMMARY | 2022-07-23 18:30 | XMS_ITS | Continuity of Care Document ---
:[address] [facility] Address [address] [place] [address]- Care Team Providers Name Role Phone Passer Cadence JOHNS Primary Care Physician Encounter [facility] [place] Date(s): 03/21/22 - 04/20/22 [facility] [address]- [place] Allergies, Adverse Reactions, Alerts Substance Reaction [...] 04/30/21 14:59:00 EST, Route to Pharmacy Electronically, [facility]/pharmacy #[id number], 168, cm, 04/30/21 13:49:00 EST, Height Start Date: 04/30/21 Status: Orderedcyclobenzaprine 5 mg oral tablet 1 tablet, By Mouth, 2 times a day, PRN NEEDED FOR BACK PAIN, # 47 tablet, 0 Refills, Maintenance,03/20/22 13:20:00 EST, [facility]-, 168, cm, 12/10/21 10:46:00 EDT, Height Start Date: 03/20/22 Status: Orderedgabapentin 300 mg oral capsule 300 mg, 1, capsule, By Mouth, Daily at bedtime, for nerve pain, # 30 capsule, Refills 6, Tot. Refills 6, Maintenance, 02/08/22 16:45:00 EDT, Route to Pharmacy Electronically, [facility]-, Partial fill upon patient request if th... Start Date: 02/08/22 Status: Orderedhydrocortisone topical 25 mg suppository 1 supp = 25 mg, Rectally, 2 times a day, # 28 supp, 1 Refills, Maintenance, 12/10/21 10:58:00 EDT, Suppository, [facility]-, Partial fill upon patient request if the prescription is for a schedule II opioid drug., 168, cm, ... Start Date: 12/10/21 Stop Date: 01/07/22 Status: OrderedMiraLax oral powder for reconstitution = 17 Gm, By Mouth, 2 times a day before breakfast and dinne, dissolve in water before taking, # 255 Gm, 2 Refills, Maintenance, 12/10/21 10:58:00 EDT, REC Powder, [facility]-, Partial fill upon patient request if the prescripti... Start Date: 12/10/21 Status: OrderedMobic 15 mg oral tablet 1 tablet = 15 mg, By Mouth, Daily, for back pain with food, # 30 tablet, 6 Refills, Maintenance, 04/30/21 14:59:00 EST, Tablet, [facility]/pharmacy #[id number], Partial fill upon patient request if the prescriptionis for a schedule II opioid drug., 168, cm, 2... Start Date: 04/30/21 Status: OrderedSenna 8.6 mg oral tablet 17.2 mg, 2, tablet, By Mouth, Daily at bedtime, PRN, with plenty of water, # 60 tablet, Refills 6, Tot. Refills 6, Maintenance, Constipation, 04/30/21 14:59:00 EST, Route to Pharmacy Electronically, [facility]/pharmacy #[id number] Tablet, Partial fill upon patient... Start Date: 04/30/21 Status: Orderedsertraline 50 mg oral tablet 1 tablet = 50 mg, By Mouth, Daily at bedtime, for anxiety, # 30 tablet, 3 Refills, Maintenance, 07/09/21 11:27:00 EST, Tablet, [facility]/pharmacy #[id number], Partial fill upon patient request if the [...] information Care Team PersonnelName: Cadence Bryant Position: [facility] PCO Associate Professional Member Role: PCP Address: Address: [address] [place] [address]- Care Team Related PersonsName: RAÚL CRISTOBAL Address: home [address] [place] [address] FIRST FLOOR [phone] [place] [address] Name: KAYLAH WEAVER
--- OUTSIDE RECORDS SUMMARY | 2022-07-23 18:30 | XMS_ITS | Continuity of Care Document ---
:1975 Author Organization [facility] Address [address] [place] [address]- Care Team Providers Name Role Phone Passer Cadence JOHNS Primary Care Physician Encounter [facility] [place] Date(s): 01/31/22 - 03/02/[address] [address] Attending Physician: Admtr, [id number] Admitting Physician: [...] 04/30/21 14:59:00 EST, Route to Pharmacy Electronically, [facility]/pharmacy #[id number], 168, cm, 04/30/21 13:49:00 EST, Height Start Date: 04/30/21 Status: Orderedcyclobenzaprine 5 mg oral tablet See Instructions, TAKE 1 TABLET BY MOUTH TWICE A DAY NEEDED FOR BACK PAIN, # 56 tablet, 2 Refills, Maintenance, 01/10/22 17:30:00 EDT, [facility]-, 168, cm, 12/10/21 10:46:00EDT, Height Start Date: 01/10/22 Status: Orderedcyclobenzaprine 5 mg oral tablet 1 tablet, By Mouth, 2 times a day, FOR BACK PAIN., # 60 tablet, 0 Refills, Maintenance, 12/14/21 12:23:00 EDT, [facility], 168, cm, 12/10/21 10:46:00 EDT, Height Start Date: 12/14/21 Status: Orderedgabapentin 300 mg oral capsule 300 mg, 1, capsule, By Mouth, Daily at bedtime, for nerve pain, # 30 capsule, Refills 6, Tot. Refills 6, Maintenance, 02/08/22 16:45:00 EDT, Route to Pharmacy Electronically, [facility], Partial fill upon patient request if th... Start Date: 02/08/22 Status: Orderedhydrocortisone topical 25 mg suppository 1 supp = 25 mg, Rectally, 2 times a day, # 28 supp, 1 Refills, Maintenance, 12/10/21 10:58:00 EDT, Suppository, [facility], Partial fill upon patient request if the prescription is for a schedule II opioid drug., 168, cm, 0... Start Date: 12/10/21 Stop Date: 01/07/22 Status: OrderedMiraLax oral powder for reconstitution = 17 Gm, By Mouth, 2 times a day before breakfast and dinne, dissolve in water before taking, # 255 Gm, 2 Refills, Maintenance, 12/10/21 10:58:00 EDT, REC Powder, [facility], Partial fill upon patient request if the prescripti... Start Date: 12/10/21 Status: OrderedMobic 15 mg oral tablet 1 tablet = 15 mg, By Mouth, Daily, for back pain with food, # 30 tablet, 6 Refills, Maintenance, 04/30/21 14:59:00 EST, Tablet, [facility]/pharmacy #[id number], Partial fill upon patient request if the prescriptionis for a schedule II opioid drug., 168, cm, 04/12... Start Date: 04/30/21 Status: OrderedSenna 8.6 mg oral tablet 17.2 mg, 2, tablet, By Mouth, Daily at bedtime, PRN, with plenty of water, # 60 tablet, Refills 6, Tot. Refills 6, Maintenance, Constipation, 04/30/21 14:59:00 EST, Route to Pharmacy Electronically, [facility]/pharmacy #[id number] Tablet, Partial fill upon patient... Start Date: 04/30/21 Status: Orderedsertraline 50 mg oral tablet 1 tablet = 50 mg, By Mouth, Daily at bedtime, for anxiety, # 30 tablet, 3 Refills, Maintenance, 07/09/21 11:27:00 EST, Tablet, [facility]/pharmacy #[id number], Partial fill upon patient request if [...] team information PersonnelName: Cadence Bryant Address: Address: [address] [place] [address]
--- OUTSIDE RECORDS SUMMARY | 2022-07-23 18:30 | XMS_ITS | Continuity of Care Document ---
:1975 Author Organization [facility] Address [address] [place] [address]- Care Team Providers Name Role Phone Cadence Bryant Primary Care Physician [phone] [place] [facility](s): 12/17/21 - 03/26/[address] [address]- Encounter Diagnosis Low back pain, unspecified (Final) - Discharge Disposition: A-D/C Home Attending Physician: Cadence Bryant Admitting Physician: Cadence [...] to Pharmacy Electronically, [facility]/pharmacy #[id number], 168, cm, 04/30/21 13:49:00 EST, Height Start Date: 04/30/21 Status: Orderedcyclobenzaprine 5 mg oral tablet 1 tablet, By Mouth, 2 times a day, PRN NEEDED FOR BACK PAIN, # 47 tablet, 0 Refills, Maintenance,03/20/22 13:20:00 EST, [facility], 168, cm, 12/10/21 10:46:00 EDT, Height Start Date: 03/20/22 Status: Orderedgabapentin 300 mg oral capsule 300 mg, 1, capsule, By Mouth, Daily at bedtime, for nerve pain, # 30 capsule, Refills 6, Tot. Refills 6, Maintenance, 02/08/22 16:45:00 EDT, Route to Pharmacy Electronically, [facility], Partial fill upon patient request if th... Start Date: 02/08/22 Status: Orderedhydrocortisone topical 25 mg suppository 1 supp = 25 mg, Rectally, 2 times a day, # 28 supp, 1 Refills, Maintenance, 12/10/21 10:58:00 EDT, Suppository, [facility]-, Partial fill upon patient request if the prescription is for a schedule II opioid drug., 168, cm, 0... Start Date: 12/10/21 Stop Date: 01/07/22 Status: OrderedMiraLax oral powder for reconstitution = 17 Gm, By Mouth, 2 times a day before breakfast and dinne, dissolve in water before taking, # 255 Gm, 2 Refills, Maintenance, 12/10/21 10:58:00 EDT, REC Powder, [facility]-, Partial fill upon patient request if the prescripti... Start Date: 12/10/21 Status: OrderedMobic 15 mg oral tablet 1 tablet = 15 mg, By Mouth, Daily, for back pain with food, # 30 tablet, 6 Refills, Maintenance, 04/30/21 14:59:00 EST, Tablet, [facility]/pharmacy #[id number], Partial fill upon patient request if the prescriptionis for a schedule II opioid drug., 168, cm, 2... Start Date: 04/30/21 Status: OrderedSenna 8.6 mg oral tablet 17.2 mg, 2, tablet, By Mouth, Daily at bedtime, PRN, with plenty of water, # 60 tablet, Refills 6, Tot. Refills 6, Maintenance, Constipation, 04/30/21 14:59:00 EST, Route to Pharmacy Electronically, [facility]/pharmacy #[id number] Tablet, Partial fill upon patient... Start Date: 04/30/21 Status: Orderedsertraline 50 mg oral tablet 1 tablet = 50 mg, By Mouth, Daily at bedtime, for anxiety, # 30 tablet, 3 Refills, Maintenance, 07/09/21 11:27:00 EST, Tablet, [facility]/pharmacy #[id number], Partial fill upon patient [...] information Care Team PersonnelName: Cadence Bryant Position: [facility] PCO Associate Professional Member Role: PCP Address: Address: [address] [place] [address]- Care Team Related PersonsName: LEVAR RAÚL Address: home [address] [place] [address] FIRST FLOOR [phone] [place] [address] Name: KAYLAH WEAVER
--- OUTSIDE RECORDS SUMMARY | 2022-07-23 18:30 | XMS_ITS | Continuity of Care Document ---
:1975 Author Organization [facility] Address [address] [place] [address]- Care Team Providers Name Role Phone Passer Cadence JOHNS Primary Care Physician Encounter [facility] [place] Date(s): 01/08/22 - 02/07/22 [facility] [address]- [place] Allergies, Adverse Reactions, Alerts Substance Reaction [...] 04/30/21 14:59:00 EST, Route to Pharmacy Electronically, [facility]/pharmacy #1, 168, cm, 04/30/21 13:49:00 EST, Height Start Date: 04/30/21 Status: Orderedcyclobenzaprine 5 mg oral tablet See Instructions, TAKE 1 TABLET BY MOUTH TWICE A DAY NEEDED FOR BACK PAIN, # 56 tablet, 2 Refills, Maintenance, 01/10/22 17:30:00 EDT, [facility]-, 168, cm, 12/10/21 10:46:00EDT, Height Start Date: 01/10/22 Status: Orderedcyclobenzaprine 5 mg oral tablet 1 tablet, By Mouth, 2 times a day, FOR BACK PAIN., # 60 tablet, 0 Refills, Maintenance, 12/14/21 12:23:00 EDT, [facility]-, 168, cm, 12/10/21 10:46:00 EDT, Height Start Date: 12/14/21 Status: Orderedgabapentin 300 mg oral capsule 300 mg, 1, capsule, By Mouth, Daily at bedtime, for nerve pain, # 30 capsule, Refills 6, Tot. Refills 6, Maintenance, 04/30/21 14:59:00 EST, Route to Pharmacy Electronically, [facility]/pharmacy #[id number], Partial fill upon patient request if the prescription is... Start Date: 04/30/21 Status: Orderedhydrocortisone topical 25 mg suppository 1 supp = 25 mg, Rectally, 2 times a day, # 28 supp, 1 Refills, Maintenance, 12/10/21 10:58:00 EDT, Suppository, [facility]-, Partial fill upon patient request if the prescription is for a schedule II opioid drug., 168, cm, 0... Start Date: 12/10/21 Stop Date: 01/07/22 Status: OrderedMiraLax oral powder for reconstitution = 17 Gm, By Mouth, 2 times a day before breakfast and dinne, dissolve in water before taking, # 255 Gm, 2 Refills, Maintenance, 12/10/21 10:58:00 EDT, REC Powder, [facility]-, Partial fill upon patient request if the prescripti... Start Date: 12/10/21 Status: OrderedMobic 15 mg oral tablet 1 tablet = 15 mg, By Mouth, Daily, for back pain with food, # 30 tablet, 6 Refills, Maintenance, 04/30/21 14:59:00 EST, Tablet, [facility]/pharmacy #[id number], Partial fill upon patient request if the prescriptionis for a schedule II opioid drug., 168, cm, 122... Start Date: 04/30/21 Status: OrderedSenna 8.6 mg oral tablet 17.2 mg, 2, tablet, By Mouth, Daily at bedtime, PRN, with plenty of water, # 60 tablet, Refills 6, Tot. Refills 6, Maintenance, Constipation, 04/30/21 14:59:00 EST, Route to Pharmacy Electronically, [facility]/pharmacy #[id number] Tablet, Partial fill upon patient... Start Date: 04/30/21 Status: Orderedsertraline 50 mg oral tablet 1 tablet = 50 mg, By Mouth, Daily at bedtime, for anxiety, # 30 tablet, 3 Refills, Maintenance, 07/09/21 11:27:00 EST, Tablet, [facility]/pharmacy #[id number], Partial fill upon patient [...] team information PersonnelName: Cadence Bryant Address: Address: [address] [place] [address]-
--- OUTSIDE RECORDS SUMMARY | 2022-07-23 18:30 | XMS_ITS | Continuity of Care Document ---
:1975 Author Organization [facility] Address Unavailable , Care Team Providers Name Role Phone Cadence Bryant Primary Care Physician En[place] [facility] [place] Date(s): 01/25/21 - 03/07/21 [facility] Attending Physician: Cadence Bryant Allergies, Adverse [...] tablet, 2 Refills, Maintenance, 02/12/21 8:55:00 EDT, [facility]-, Partial fill upon patient request if the prescription is for a schedule II opioid drug., 168, cm,... Start Date: 02/12/21 Status: OrderedMobic 15 mg oral tablet 1 tablet = 15 mg, By Mouth, Daily, for back pain with food, # 30 tablet, 3 Refills, Maintenance, 02/12/21 8:54:00 EDT, Tablet, [facility]-, Partial fill upon patient request if the prescription is for a schedule II opioid drug... Start Date: 02/12/21 Status: OrderedSenna 8.6 mg oral tablet 17.2 mg, 2, tablet, By Mouth, Daily at bedtime, PRN, with plenty of water, # 60 tablet, Refills 6, Tot. Refills 6, Maintenance, Constipation, 02/12/21 8:55:00 EDT, Route to Pharmacy Electronically, [facility] Tablet, Partial f... Start Date: 02/12/21 Status: [...]
--- OUTSIDE RECORDS SUMMARY | 2022-07-23 18:30 | XMS_ITS | Continuity of Care Document ---
:1975 Author Organization [facility] Address Unavailable , Care Team Providers Name Role Phone Passer Cadence JOHNS Primary Care Physician Encounter [facility] [place] Date(s): 05/22/21 - 06/21/21 [facility] Allergies, Adverse Reactions, Alerts Substance Reaction Severity [...] 04/30/21 14:59:00 EST, Route to Pharmacy Electronically, [facility]/pharmacy #[id number], 168, cm, 04/30/21 13:49:00 EST, Height Start Date: 04/30/21 Status: Orderedcyclobenzaprine 5 mg oral tablet 1 tablet, By Mouth, 2 times a day, FOR BACK PAIN., # 60 tablet, 6 Refills, Maintenance, 04/30/21 14:59:00 EST, [facility]/pharmacy #[id number], 168, cm, 04/30/21 13:49:00 EST, Height Start [...] 04/30/21 14:59:00 EST, Route to Pharmacy Electronically, [facility]/pharmacy #[id number] Tablet, Partial fill upon [...]
--- OUTSIDE RECORDS SUMMARY | 2022-07-23 18:30 | XMS_ITS | Continuity of Care Document ---
:1975 Author Organization [facility] Address Unavailable , Care Team Providers Name Role Phone Passer Cadence JOHNS Primary Care Physician Encounter [facility] [place] Date(s): 03/12/21 - 04/11/21 [facility] Attending Physician: Althea Robert Admitting Physician: [...] BACK PAIN., # 60 tablet, 0 Refills, [id number], 168, cm, 02/12/21 8:19:00 EDT, Height Start Date: 03/12/21 Status: OrderedMobic 15 mg oral tablet 1 tablet = 15 mg, By Mouth, Daily, for back pain with food, # 30 tablet, 3 Refills, Maintenance, 02/12/21 8:54:00 EDT, Tablet, [facility], Partial fill upon patient request if the prescription is for a schedule II opioid drug... Start Date: 02/12/21 Status: OrderedSenna 8.6 mg oral tablet 17.2 mg, 2, tablet, By Mouth, Daily at bedtime, PRN, with plenty of water, # 60 tablet, Refills 6, Tot. Refills 6, Maintenance, Constipation, 02/12/21 8:55:00 EDT, Route to Pharmacy Electronically, [facility] Tablet, Partial f... Start Date: 02/12/21 Status: [...]
--- OUTSIDE RECORDS SUMMARY | 2022-07-23 18:31 | XMS_ITS | Continuity of Care Document ---
:1975 Author Organization [facility] enter/[facility] Address [address] [place] [address]- Care Team Providers Name Role Phone Passer Cadence JOHNS Primary Care Physician [phone] [id number] Date(s): 06/06/22 - 07/06/22 [facility] [address]- [place] Allergies, Adverse Reactions, Alerts Substance Reaction [...] 07/03/22 8:33:00 EST, Route to Pharmacy Electronically, [facility]/pharmacy #1, 168, cm, 07/03/22 8:08:00 EST, [...] 07/03/22 8:33:00 EST, Route to Pharmacy Electronically, [facility]/pharmacy #[id number], Partialfill upon patient request if the prescription is... Start Date: 07/03/22 Status: Orderedhydrocortisone topical 25 mg suppository 1 supp = 25 mg, Rectally, 2 times a day, # 28 supp, 1 Refills, Maintenance, 12/10/21 10:58:00 EDT, Suppository, [facility], Partial fill upon patient request if the prescription is for a schedule II opioid drug., 168, cm, ... Start Date: 12/10/21 Stop Date: 01/07/22 Status: OrderedhydrOXYzine hydrochloride 25 mg oral tablet 1 tablet = 25 mg, By Mouth, 2 times a day, PRN for anxiety, # 60 tablet, 2 Refills, Maintenance, 07/03/22 8:33:00 EST, Tablet, [facility]/pharmacy #[id number], Partial fill upon patient request if the prescription is for a schedule II opioid drug., 168, cm, ... Start Date: 07/03/22 Status: OrderedMiraLax oral powder for reconstitution = 17 Gm, By Mouth, 2 times a day before breakfast and dinne, dissolve in water before taking, # 255 Gm, 6 Refills, Maintenance, 07/03/22 8:33:00 EST, REC Powder, [facility]/pharmacy #[id number], Partial fill upon patient request if the prescription is for a schedu... Start Date: 07/03/22 Status: OrderedMobic 15 mg oral tablet 1 tablet = 15 mg, By Mouth, Daily, for back pain with food, # 90 tablet, 1 Refills, Maintenance, 07/03/22 8:33:00 EST, Tablet, [facility]/pharmacy #[id number], Partial fill upon patient request if the prescription is for a schedule II opioid drug., 168, cm, 07/03... Start Date: 07/03/22 Status: OrderedSenna 8.6 mg oral tablet 17.2 mg, 2, tablet, By Mouth, Daily at bedtime, PRN, with plenty of water, # 180 tablet, Refills 3, Tot. Refills 3, Maintenance, Constipation, 07/03/22 8:33:00 EST, Route to Pharmacy Electronically, [facility]/pharmacy #[id number] Tablet, Partial fill upon patient... Start Date: [...] information Care Team PersonnelName: Cadence Bryant Position: [facility] PCO Associate Professional Member Role: PCP Address: Address: [address] [place] [address]- Care Team Related PersonsName: RAÚL CRISTOBAL Address: home [address] [place] [address] FIRST FLOOR [phone] [place] [address] Name: KAYLAH WEAVER
--- OUTSIDE RECORDS SUMMARY | 2022-07-23 18:31 | XMS_ITS | Continuity of Care Document ---
:1975 Author Organization [facility] Address Unavailable , Care Team Providers Name Role Phone Passer Cadence JOHNS Primary Care Physician [phone] [place] [facility] [place] 12/17/21 [facility] Attending Physician: Gilma Medina NP Referring Physician: Vika SMITH, Diamante Bernardo Allergies, Adverse Reactions, Alerts Substance Reaction Severity [...] 04/30/21 14:59:00 EST, Route to Pharmacy Electronically, [facility]/pharmacy #1, 168, cm, 04/30/21 13:49:00 EST, Height Start Date: 04/30/21 Status: Orderedcyclobenzaprine 5 mg oral tablet 1 tablet, By Mouth, 2 times a day, FOR BACK PAIN., # 60 tablet, 0 Refills, Maintenance, 12/14/21 12:23:00 EDT, [facility]-, 168, cm, 12/10/21 10:46:00 EDT, Height Start Date: 12/14/21 Status: Orderedgabapentin 300 mg oral capsule 300 mg, 1, capsule, By Mouth, Daily at bedtime, for nerve pain, # 30 capsule, Refills 6, Tot. Refills 6, Maintenance, 04/30/21 14:59:00 EST, Route to Pharmacy Electronically, [facility]/pharmacy #[id number], Partial fill upon patient request if the prescription is... Start Date: 04/30/21 Status: Orderedhydrocortisone topical 25 mg suppository 1 supp = 25 mg, Rectally, 2 times a day, # 28 supp, 1 Refills, Maintenance, 12/10/21 10:58:00 EDT, Suppository, [facility]-, Partial fill upon patient request if the prescription is for a schedule II opioid drug., 168, cm, ... Start Date: 12/10/21 Stop Date: 01/07/22 Status: OrderedMiraLax oral powder for reconstitution = 17 Gm, By Mouth, 2 times a day before breakfast and dinne, dissolve in water before taking, # 255 Gm, 2 Refills, Maintenance, 12/10/21 10:58:00 EDT, REC Powder, [facility]-, Partial fill upon patient request if the prescripti... Start Date: 12/10/21 Status: OrderedMobic 15 mg oral tablet 1 tablet = 15 mg, By Mouth, Daily, for back pain with food, # 30 tablet, 6 Refills, Maintenance, 04/30/21 14:59:00 EST, Tablet, [facility]/pharmacy #[id number], Partial fill upon patient request if the prescriptionis for a schedule II opioid drug., 168, cm, 2... Start Date: 04/30/21 Status: OrderedSenna 8.6 mg oral tablet 17.2 mg, 2, tablet, By Mouth, Daily at bedtime, PRN, with plenty of water, # 60 tablet, Refills 6, Tot. Refills 6, Maintenance, Constipation, 04/30/21 14:59:00 EST, Route to Pharmacy Electronically, [facility]/pharmacy #[id number] Tablet, Partial fill upon patient... Start Date: 04/30/21 Status: Orderedsertraline 50 mg oral tablet 1 tablet = 50 mg, By Mouth, Daily at bedtime, for anxiety, # 30 tablet, 3 Refills, Maintenance, 07/09/21 11:27:00 EST, Tablet, [facility]/pharmacy #[id number], Partial fill upon patient request if the [...] oldest [Reference Range]: 1 Height 168 cm (12/10/21 10:46 AM) Weight 81.4 kg (12/10/21 10:46 AM) Pulse Rate [55-90 bpm] 79 bpm (12/10/21 10:46 AM) Body Mass Index [18.5-24.99] 28.84 *H* (12/10/21 10:46 AM) Blood Pressure [90-138/55-84 mm Hg] 97/73 mm Hg (12/10/21 10:46 AM) Respiratory Rate [16-30 br/min] 16 br/min (12/10/21 10:46 AM) Temperature [96.8-100.4 DegF] 96 DegF *L* (12/10/21 10:46 AM) Social History Social History Type Response Smoking Status 10 or more cigarettes (1/2 p ack or more)/day in last 30 days; Number of years: 20; Total pack years: 14; entered on: 02/12/21 Sex
--- OUTSIDE RECORDS SUMMARY | 2022-07-23 18:31 | XMS_ITS | Continuity of Care Document ---
:1975 Author Organization [facility] Address Unavailable , Care Team Providers Name Role Phone Cadence Bryant Primary Care Physician [id number] Date(s): 09/28/21 - 11/21/21 [facility] Attending Physician: Cadence Bryant Allergies, [...] 04/30/21 14:59:00 EST, Route to Pharmacy Electronically, [facility]/pharmacy #[id number], 168, cm, 04/30/21 13:49:00 EST, Height Start Date: 04/30/21 Status: Orderedcyclobenzaprine 5 mg oral tablet 1 tablet, By Mouth, 2 times a day, FOR BACK PAIN., # 60 tablet, 6 Refills, Maintenance, 04/30/21 14:59:00 EST, [facility]/pharmacy #[id number], 168, cm, 04/30/21 13:49:00 EST, [...]
== END 2022-07-23 18:30 | disposition home or self-care (01) ==
LOC: HO.ED 18:28
PROVIDERS: Emergency Provider Internal Medicine
DX: F11.20 Opioid dependence, uncomplicated (principal); B19.20 Unspecified viral hepatitis C without hepatic coma; Z79.899 Other long term (current) drug therapy
CPT/HCPCS: 99282; 99283

== ENCOUNTER 2022-10-05 11:27 | Emergency (ER) | payer OTHER, SELFPAY ==
[2022-10-05 11:42] VITALS: BP 117/78; PULSE 105; RESP 20; TEMP 36.8; O2SAT 97; BMI 30.6
--- OUTSIDE RECORDS SUMMARY | 2022-10-05 12:53 | XMS_ITS | Continuity of Care Document ---
Author Name Unknown Organization [facility] Address [address] [place] [address]- Care Team Providers Care Advertising Columnist Name Role Phone Cadence Bryant Primary Care Physician [place] [facility] [place]s): 07/03/22 - 10/02/22 [facility]/[address] [address]- Attending Physician: Cadence Bryant Admitting Physician: Cadence Bryant Allergies, Adverse Reactions, Alerts Substance Reaction Severity Status Tylenol with Codeine Active Immunizations Given and Recorded Vaccine Date Status Refusal Reason SARS-CoV-2 (COVID-19) mRNA-1273 vaccine 05/31/21 R ecorded SARS-CoV-2 (COVID-19) mRNA-1273 vaccine 07/25/20 R ecorded SARS-CoV-2 (COVID-19) mRNA-1273 vaccine 06/27/20 R ecorded hepatitis B adult vaccine 05/09/20 Recorded hepatitis B adult vaccine 04/13/20 Recorded tetanus/diphtheria/pertussis, acel(Tdap) 03/21/20 Recorded influenza virus vaccine, inactivated 01/19/20 Ran rded tetanus-diphtheria toxoids (Td) 01/30/12 Recorded Medications cloNIDine 0.1 mg oral tablet 0.1 mg, 1, tablet, By Mouth, Daily at bedtime, for sleep and night sweats, # 90 tablet, Refills 1, Tot. Refills 1, Maintenance, 09/03/22 10:54:00 EDT, Route to Pharmacy Electronically, [facility]/pharmacy #[id number], 168, cm, 09/03/22 10:22:00 EDT, Height Start Date: 09/03/22 Status: Ordered cyclobenzaprine 5 mg oral tablet 1 tablet, By Mouth, 2 times a day, PRN NEEDED FOR BACK PAIN, # 60 tablet, 3 Refills, Maintenance, 09/03/22 10:53:00 EDT, [facility]/pharmacy #[id number], 168, cm, 09/03/22 10:22:00 EDT, Height Start Date: 09/03/22 Status: Ordered gabapentin 300 mg oral capsule 300 mg, 1, capsule, By Mouth, Daily at bedtime, for nerve pain, # 90 capsule, Refills 1, Tot. Refills 1, Maintenance, 07/03/22 8:33:00 EST, Route to Pharmacy Electronically, [facility]/pharmacy #[id number], Partial fill upon patient request if the prescription is... Start Date: 07/03/22 Status: Ordered hydrocortisone topical 25 mg suppository 1 supp = 25 mg, Rectally, 2 times a day, # 28 supp, 1 Refills, Maintenance, 12/10/21 10:58:00 EDT, Suppository, [facility], Partial fill upon patient request if the prescription is for a schedule II opioid drug., 168, cm, ... Start Date: 12/10/21 Stop Date: 01/07/22 Status: Ordered hydrOXYzine hydrochloride 25 mg oral tablet 1 tablet = 25 mg, By Mouth, 2 times a day, PRN for anxiety, # 180 tablet, 2 Refills, Maintenance, 09/03/22 10:54:00 EDT, Tablet, [facility]/pharmacy #[id number], Partial fill upon patient request if the prescription is for a schedule II opioid drug., 168, cm, 2... Start Date: 09/03/22 Status: Ordered MiraLax oral powder for reconstitution = 17 Gm, By Mouth, 2 times a day before breakfast and dinne, dissolve in water before taking, # 255Gm, 6 Refills, Maintenance, 07/03/22 8:33:00 EST, REC Powder, [facility]/pharmacy #[id number], Partial fill uponpatient request if the prescription is for a schedu... Start Date: 07/03/22 Status: Ordered Mobic 15 mg oral tablet 1 tablet = 15 mg, By Mouth, Daily, for back pain with food, # 90 tablet, 1 Refills, Maintenance, 07/03/22 8:33:00 EST, Tablet, [facility]/pharmacy #[id number], Partial fill upon patient request if the prescription is for a schedule II opioid drug., 168, cm, 07/03... Start Date: 07/03/22 Status: Ordered Senna 8.6 mg oral tablet 17.2 mg, 2, tablet, By Mouth, Daily at bedtime, PRN, with plenty of water, # 180 tablet, Refills 3,Tot. Refills 3, Maintenance, Constipation, 07/03/22 8:33:00 EST, Route to Pharmacy Electronically, [facility]/pharmacy #[id number] Tablet, Partial fill upon patient... Start Date: 07/03/22 Status: Ordered Problem List Condition Confirmation Course Effective Dates Status Health St atus Informant Anxiety Confirmed Active Lumbar facet arthropathy Confirmed Active Chronic constipation Confirmed Active Chronic right-sided low back pain with right-sided sciatica Confirmed Active Cigarette smoker Confirmed Active History of hepatitis C Confirmed Active History of substance abuse Confirmed Active Insomnia Confirmed Active Obese class I Confirmed Active Social History Social History Type Response Smoking Status 10 or more cigarette s (1/2 pack or more)/day in last 30 days; Total pack years: 14; Number of years: 20; entered on: 02/12/21 Sex Patient Care team information Care Team Personnel Name: Cadence Bryant Position: [facility] PCO Associate Professional Member Role: PCP Address: Address: [address] [place] [address]- Care Team Related Persons Name: RAÚL CRISTOBAL Address: home [address] [place] [address] FIRST FLOOR [phone] [place] [address] Name: KAYLAH WEAVER
--- OUTSIDE RECORDS SUMMARY | 2022-10-05 12:53 | XMS_ITS | Continuity of Care Document ---
Author Name Unknown Organization [facility] Address [address] [place] [address]- Care Team Providers Care Automation And Controls Supervisor Name Role Phone Passer Cadence JOHNS Primary Care Physician Encounter [facility] [place] Date(s): 09/03/22 - 10/03/22 [facility]/[address] [address]- Attending Physician: AdmAlthea abreu Admitting Physician: Admtr, Althea Referring Physician: Admtr, Ar8 Allergies, Adverse Reactions, [...] 09/03/22 10:54:00 EDT, Route to Pharmacy Electronically, [facility]/pharmacy #[id number], 168, cm, 09/03/22 10:22:00 EDT, Height Start Date: 09/03/22 Status: Ordered cyclobenzaprine 5 mg oral tablet 1 tablet, By Mouth, 2 times a day, PRN NEEDED FOR BACK PAIN, # 60 tablet, 3 Refills, Maintenance, 09/03/22 10:53:00 EDT, [facility]/pharmacy #[id number], 168, cm, 09/03/22 10:22:00 EDT, Height Start Date: 09/03/22 Status: Ordered gabapentin 300 mg oral capsule 300 mg, 1, capsule, By Mouth, Daily at bedtime, for nerve pain, # 90 capsule, Refills 1, Tot. Refills 1, Maintenance, 07/03/22 8:33:00 EST, Route to Pharmacy Electronically, [facility]/pharmacy #[id number], Partial fill upon patient request if the prescription is... Start Date: 07/03/22 Status: Ordered hydrocortisone topical 25 mg suppository 1 supp = 25 mg, Rectally, 2 times a day, # 28 supp, 1 Refills, Maintenance, 12/10/21 10:58:00 EDT, Suppository, [facility], Partial fill upon patient request if the prescription is for a schedule II opioid drug., 168, cm, ... Start Date: 12/10/21 Stop Date: 01/07/22 Status: Ordered hydrOXYzine hydrochloride 25 mg oral tablet 1 tablet = 25 mg, By Mouth, 2 times a day, PRN for anxiety, # 180 tablet, 2 Refills, Maintenance, 09/03/22 10:54:00 EDT, Tablet, [facility]/pharmacy #[id number], Partial fill upon patient request if the prescription is for a schedule II opioid drug., 168, cm, 2... Start Date: 09/03/22 Status: Ordered MiraLax oral powder for reconstitution = 17 Gm, By Mouth, 2 times a day before breakfast and dinne, dissolve in water before taking, # 255Gm, 6 Refills, Maintenance, 07/03/22 8:33:00 EST, REC Powder, [facility]/pharmacy #[id number], Partial fill uponpatient request if the [...] 07/03/22 8:33:00 EST, Route to Pharmacy Electronically, [facility]/pharmacy #[id number] Tablet, Partial fill upon patient... Start Date: [...] Care Team Personnel Name: Cadence Bryant Position: [facility] PCO Associate Professional Member Role: PCP Address: Address: [address] [place] [address]- Care Team Related Persons Name: RAÚL CRISTOBAL Address: home [address] FIRST FLOOR [phone] [place] [address] Name: KAYLAH WEAVER
--- OUTSIDE RECORDS SUMMARY | 2022-10-05 12:54 | XMS_ITS | Continuity of Care Document ---
Author Name Unknown Organization [facility] Address [address] [place] [address]- Care Team Providers Care Airport Operations Supervisor Name Role Phone Cadence Bryant Primary Care Physician [place] [facility] [place] - 07/[place] [address] Attending Physician: Cadence Bryant Admitting Physician: Cadence [...] 07/03/22 8:33:00 EST, Route to Pharmacy Electronically, [facility]/pharmacy #[id number], 168, cm, 07/03/22 8:08:00 EST, Height Start Date: 07/03/22 Status: Ordered cyclobenzaprine 5 mg oral tablet 1 tablet, By Mouth, 2 times a day, PRN NEEDED FOR BACK PAIN, # 60 tablet, 1 Refills, Maintenance, 07/03/22 8:33:00 EST, [facility]/pharmacy [id number], 168, cm, 07/03/22 8:08:00 EST, Height Start Date: 07/03/22 Status: Ordered gabapentin 300 mg oral capsule 300 mg, 1, capsule, By Mouth, Daily at bedtime, for nerve pain, # 90 capsule, Refills 1, Tot. Refills 1, Maintenance, 07/03/22 8:33:00 EST, Route to Pharmacy Electronically, [facility]/pharmacy [id number], Partial fill upon patient request if the prescription is... Start Date: 07/03/22 Status: Ordered hydrocortisone topical 25 mg suppository 1 supp = 25 mg, Rectally, 2 times a day, # 28 supp, 1 Refills, Maintenance, 12/10/21 10:58:00 EDT, Suppository, [facility]-, Partial fill upon patient request if the prescription is for a schedule II opioid drug., 168, cm, ... Start Date: 12/10/21 Stop Date: 01/07/22 Status: Ordered hydrOXYzine hydrochloride 25 mg oral tablet 1 tablet = 25 mg, By Mouth, 2 times a day, PRN for anxiety, # 60 tablet, 2 Refills, Maintenance, 07/03/22 8:33:00 EST, Tablet, [facility]/pharmacy #[id number], Partial fill upon patient request if the prescription is for a schedule II opioid drug., 168, cm, ... Start Date: 07/03/22 Status: Ordered MiraLax oral powder for reconstitution = 17 Gm, By Mouth, 2 times a day before breakfast and dinne, dissolve in water before taking, # 255Gm, 6 Refills, Maintenance, 07/03/22 8:33:00 EST, REC Powder, [id number], Partial fill uponpatient request if the [...] 07/03/22 8:33:00 EST, Route to Pharmacy Electronically, [facility]/pharmacy #[id number] Tablet, Partial fill upon patient... Start Date: [...] Care Team Personnel Name: Cadence Bryant Position: [facility] PCO Associate Professional Member Role: PCP Address: Address: [address] [place] [address]- Care Team Related Persons Name: RAÚL CRISTOBAL Address: home [address] [place] [address] FIRST FLOOR [phone] [place] [address] Name: KAYLAH WEAVER
--- OUTSIDE RECORDS SUMMARY | 2022-10-05 12:54 | XMS_ITS | Continuity of Care Document ---
Author Name Unknown Organization [facility] Address [address] [place] [address]- Care Team Providers Care Group Activities Aide Name Role Phone Passer Cadence JOHNS Primary Care Physician Encounter [facility] [place] Date(s): 06/27/22 - 07/27/[address] [address] Attending Physician: AdmAlthea abreu Admitting Physician: AdmtrAlthea Referring Physician: Admtr, Ar8 [...] 07/03/22 8:33:00 EST, Route to Pharmacy Electronically, [facility]/pharmacy #[id number], 168, cm, 07/03/22 8:08:00 EST, Height [...] 1 Refills, Maintenance, 12/10/21 10:58:00 EDT, Suppository, [facility]-, Partial fill upon patient request if the prescription is for a schedule II opioid drug., 168, cm, ... Start Date: 12/10/21 Stop Date: 01/07/22 Status: Ordered hydrOXYzine hydrochloride 25 mg oral tablet 1 tablet = 25 mg, By Mouth, 2 times a day, PRN for anxiety, # 60 tablet, 2 Refills, Maintenance, 07/03/22 8:33:00 EST, Tablet, [facility]/pharmacy #[id number], Partial fill upon patient request [...] 07/03/22 8:33:00 EST, Route to Pharmacy Electronically, [facility]/pharmacy #[id number] Tablet, Partial fill upon patient... Start Date: [...] Care Team Personnel Name: Cadence Bryant Position: [facility] PCO Associate Professional Member Role: PCP Address: Address: [address] [place] [address]- Care Team Related Persons Name: RAÚL CRISTOBAL Address: home [address] [place] [address] FIRST FLOOR [phone] [place] [address] Name: KAYLAH WEAVER
== END 2022-10-05 13:39 | disposition left against medical advice (07) ==
LOC: HO.ED 12:52
PROVIDERS: Emergency Provider Emergency Medicine
DX: F11.20 Opioid dependence, uncomplicated (principal)
CPT/HCPCS: 99281

== ENCOUNTER 2023-05-12 13:08 | Emergency (ER) | payer OTHER, SELFPAY ==
[2023-05-12 13:27] VITALS: BP 122/74; PULSE 79; RESP 20; TEMP 35.7; O2SAT 99; BMI 30.9
--- NOTE | 2023-05-12 13:28 | ED_ITS ---
HPI - Ear Problem General Chief complaint: Ear Problems Stated complaint: FO in R ear Time Seen by Provider: 05/12/23 17:25 Source: patient Mode of arrival: ambulatory Limitations: no limitations History of Present Illness HPI Narrative: Patient is a 47-year-old male presenting to the emergency department with concern of foreign body to right ear. States he was washing his face 3 days ago, was using a handful of small pieces of soap from the soap dish, was rubbing against his face and felt a piece go into his right ear. Also reports decreased hearing to right ear with pain. Denies fevers. Denies any drainage from the ear. MD Complaint: ear pain and foreign body Location: right ear Duration: constant Severity: moderate Relieving factors: nothing Exacerbating factors: nothing Discharge from ear: no Associated symptoms ear: decreased hearing Treatment prior to arrival: none Related Data Previous Rx's Medication Instructions Recorded famotidine 20 mg tablet (Pepcid) 20 mg PO DAILY #30 tabs 10/23/20 ketorolac 10 mg tablet 10 mg PO Q8H PRN pain #10 tabs 05/20/21 lidocaine 5 % topical patch 1 patch topical DAILY pain #15 ea 05/20/21 (Lidoderm) prednisone 20 mg tablet 40 mg (2 x 20 mg) PO DAILY rash 5 05/20/21 days #10 tabs Allergies Allergy/AdvReac Type Severity Reaction Status Date / Time No Known Allergies Allergy Verified 05/12/23 13:29 Review of Systems Review of Systems: Yes all other systems are reviewed and are negative Constitutional: Constitutional: Reports as [facility] Past Medical History Onset Date is defined in the Problem List Problems that require an onset date and time if occurred within 24 hrs of arrival to the ED Aortic Dissection and Rupture; Neurologic impairment; Cardiopulmonary Arrest; Endotracheal Intubation; Insertion or Replacement of Mechanical Circulatory Assist Device Medical History Asthma Hepatitis C Social History Social History Advance Directives: No Advance Directives Information Provided: No Physical Exam Vital Signs: Vital Signs: Last Vital Signs Temp 96.3 F L 05/12/23 13:27 Pulse 79 05/12/23 13:27 Resp 20 05/12/23 13:27 BP 122/74 05/12/23 13:27 Pulse Ox 99 05/12/23 13:27 O2 Del Method Room Air 05/12/23 13:27 BMI result Body Mass Index 30.9 Vital signs have been reviewed and appear to be correct. Blood pressure normal. Heart rate normal. Respiratory rate normal. Temperature normal. Oxygen saturation normal. Const: General: cooperative, healthy appearing and no acute distress Orientation/consciousness: oriented to person, oriented to place, oriented to time and patient oriented x3 Limitations: no limitations HEENT: Head: Yes normocephalic and Yes atraumatic Ears: external ears normal and Abnormal EAC present foreign body on the right (white substance) General nose exam: Normal external nose present Face and sinus: Yes face symmetric Mouth: oropharynx normal and moist mucous membranes Throat: Yes uvula midline Eyes: Pupils: Equal, round and reactive pupils present Neck: Neck: Yes normal visual inspection and Yes supple Resp: Effort & Inspection: normal respiratory effort and able to speak in complete sentences Auscultation: clear to auscultation bilaterally Cardio: Rate: regular rate Rhythm: regular rhythm Heart sounds: S1 normal heart sound present and S2 normal heart sound present Skin: General skin exam: elasticity normal and turgor normal Neuro: General: oriented to person, oriented to place, oriented to time, patient oriented x3, moves all extremities, no focal motor deficits and CN's II- XI intact bilaterally Cranial nerves: Yes Equal, round and reactive pupils present Cognition (Neuro): normal cognition Extrem: General: Yes full ROM Psych: Mental Status: mental status grossly normal Affect: normal affect Thought process: Normal thought process present Course Course Course Narrative: this is a rapid medical exam. Defer additional HPI, ROS, PE to prior provider. 47-year-old male here with concern for foreign body in right ear. On exam unable to visualize TM. There does appear to be a white object within the ear c anal. ?q tip vs soap. WIll need ear flushed VSS Procedures Foreign Body Removal Time Out Performed: yes Site: right and ear Description of foreign body: other (soap) Sedation/Analgesia: none Technique: irrigation Confirmed by:: direct visualization Complications: none Post-procedure exam: awake, alert Neurovascular: other (TM visualized and normal) Medical Decision Making Medical Decision Making MDM Narrative: Patient is a 47-year-old male presenting to the emergency department with concern of foreign body to right ear. On exam patient is awake, A+Ox3, VS WNL, afebrile, normal neurological exam without focal deficits, physical exam findings as above. Given reported symptoms and physical exam findings, initial differential includes foreign body versus otitis externa. FB removed as per procedure note. Patient reported immediate improvement in hearing and pain. TM visualized and normal after FB removal. Return precautions discussed. Patient verbalized understanding of and agreement with plan. Differential Diagnosis Differential Diagnoses: The differential diagnosis associated with the presentation includes otitis externa, foreign body right ear, otitis media External Record Review External record reviewed: Inpatient record, Office record and Outpatient record Discharge Plan Discharge Clinical Impression: Foreign body in ear Patient Disposition: Home, Self-Care Instructions: Ear Foreign Body (ED) Additional Instructions: You were evaluated in the emergency department today for foreign body to your right ear. The foreign body was flushed out with water. Return to the emergen cy department if you develop increasing pain, difficulty hearing, fever, drainage from your ear or any other concerning symptoms. Prescriptions: No Action famotidine [Pepcid] 20 mg tablet 20 mg PO DAILY Qty: 30 0RF ketorolac 10 mg tablet 10 mg PO Q8H PRN (Reason: pain) Qty: 10 0RF Rx Instructions: Given 1st dose in the ED prednisone 20 mg tablet 40 mg PO DAILY 5 Days Qty: 10 0RF lidocaine [Lidoderm] 5 % adhesive patch,medicated 1 patch topical DAILY Qty: 15 0RF Rx Instructions: leave on most painful area for up to 12 hrs. May be substituted
--- OUTSIDE RECORDS SUMMARY | 2023-05-12 17:34 | XMS_ITS | Continuity of Care Document ---
Author Name Unknown Organization [facility] Address [address] [place] [address]- Care Team Providers Care Lining Finisher Name Role Phone Passer Cadence JOHNS Primary Care Physician Encounter [place] Date(s): 11/15/22 - 02/05/23 [facility]/[address] [address]- Attending Physician: Not on Staff, Attending MD [...] Recorded Medications cloNIDine 0.1 mg oral tablet See Instructions, TAKE 1 TABLET BY MOUTH EVERY DAY AT BEDTIME FOR SLEEP AND NIGHT SWEATS, # 90 tablet, Refills 1, Maintenance, 01/09/23 14:53:00 EDT, Instructions Replace Required Details, Route to Pharmacy Electronically, [id number], 168, cm, 04... Start Date: 01/09/23 Status: Ordered cyclobenzaprine 5 mg oral tablet 1 tablet, By Mouth, 2 times a day, PRN NEEDED FOR BACK PAIN, # 60 tablet, 3 Refills, Maintenance, 01/15/23 10:50:00 EDT, [id number], 168, cm, 09/03/22 10:22:00 EDT, Height Start Date: 01/15/23 Status: Ordered gabapentin 300 mg oral capsule 1, capsule, By Mouth, Daily at bedtime, PRN, # 30 capsule, Refills 1, Maintenance, NEEDED FOR NERVE PAIN, 01/22/23 0:05:00 EDT, Route to Pharmacy Electronically, [facility]-, 168, cm, 09/03/22 10:22:00 EDT, Height Start Date: 01/22/23 Status: Ordered hydrocortisone topical 25 mg suppository 1 supp = 25 mg, Rectally, 2 times a day, # 28 supp, 1 Refills, Maintenance, 12/10/21 10:58:00 EDT, Suppository, [facility]-, Partial fill upon patient request if the prescription is for a schedule II opioid drug., 168, cm, ... Start Date: 12/10/21 Stop Date: 01/07/22 Status: Ordered hydrOXYzine hydrochloride 25 mg oral tablet 1 tablet = 25 mg, By Mouth, 2 times a day, PRN for anxiety, # 180 tablet, 2 Refills, Maintenance, 09/03/22 10:54:00 EDT, Tablet, [facility]/pharmacy #[id number], Partial fill upon patient request if the prescription is for a schedule II opioid drug., 168, cm, 2... Start Date: 09/03/22 Status: Ordered meloxicam 15 mg oral tablet See Instructions, TAKE 1 TABLET BY MOUTH NEEDED FOR PAIN WITH FOOD, # 90 tablet, 0 Refills, Maintenance, 01/09/23 14:53:00 EDT, [id number], 168, cm, 09/03/22 10:22:00 EDT, Height Start Date: 01/09/23 Status: Ordered MiraLax oral powder for reconstitution = 17 Gm, By Mouth, 2 times a day before breakfast and dinne, dissolve in water before taking, # 255Gm, 6 Refills, Maintenance, 07/03/22 8:33:00 EST, REC Powder, [id number], Partial fill uponpatient request if the prescription is for a schedu... Start Date: 07/03/22 Status: Ordered Senna 8.6 mg oral tablet 17.2 mg, 2, tablet, By Mouth, Daily at bedtime, PRN, with plenty of water, # 180 tablet, Refills 3,Tot. Refills 3, Maintenance, Constipation, 07/03/22 8:33:00 EST, Route to Pharmacy Electronically, [facility]/pharmacy #[id number] Tablet, Partial fill upon patient... Start Date: [...] Care Team Personnel Name: Cadence Bryant Position: [facility] PCO Associate Professional Member Role: PCP Address: Address: [address] [place] [address] Care Team Related Persons Name: RAÚL CRISTOBAL Address: home [address]LO[address] [phone] [place] [address] Name: KAYLAH WEAVER
--- OUTSIDE RECORDS SUMMARY | 2023-05-12 17:34 | XMS_ITS | Continuity of Care Document ---
Author Name Unknown Organization [facility] Address [address] [place] [address]- Care Team Providers Care Leather Stamper Name Role Phone Passer Cadence JOHNS Primary Care Physician [place] [facility] [place]23 - 02/05/23 [facility]/[address] [address]- Attending Physician: Admtr, ArWilbur Admitting Physician: Admtr, Ar8 Referring Physician: Admtr, [...] Replace Required Details, Route to Pharmacy Electronically, [id number], 168, cm, 04... Start Date: 01/09/23 Status: Ordered cyclobenzaprine 5 mg oral tablet 1 tablet, By Mouth, 2 times a day, PRN NEEDED FOR BACK PAIN, # 60 tablet, 3 Refills, Maintenance, 01/15/23 10:50:00 EDT, [facility], 168, cm, 09/03/22 10:22:00 EDT, Height Start Date: 01/15/23 Status: Ordered gabapentin 300 mg oral capsule 1, capsule, By Mouth, Daily at bedtime, PRN, # 30 capsule, Refills 1, Maintenance, NEEDED FOR NERVE PAIN, 01/22/23 0:05:00 EDT, Route to Pharmacy Electronically, [facility]-, 168, cm, 09/03/22 10:22:00 EDT, Height Start Date: 01/22/23 Status: Ordered hydrocortisone topical 25 mg suppository 1 supp = 25 mg, Rectally, 2 times a day, # 28 supp, 1 Refills, Maintenance, 12/10/21 10:58:00 EDT, Suppository, [facility]-, Partial fill upon patient request if the prescription is for a schedule II opioid drug., 168, cm, ... Start Date: 12/10/21 Stop Date: 01/07/22 Status: Ordered hydrOXYzine hydrochloride 25 mg oral tablet 1 tablet = 25 mg, By Mouth, 2 times a day, PRN for anxiety, # 180 tablet, 2 Refills, Maintenance, 09/03/22 10:54:00 EDT, Tablet, [facility]/pharmacy #[id number], Partial fill upon patient request if the prescription is for a schedule II opioid drug., 168, cm, 2... Start Date: 09/03/22 Status: Ordered meloxicam 15 mg oral tablet See Instructions, TAKE 1 TABLET BY MOUTH NEEDED FOR PAIN WITH FOOD, # 90 tablet, 0 Refills, Maintenance, 01/09/23 14:53:00 EDT, [id number], 168, cm, 09/03/22 10:22:00 EDT, Height Start [...] 07/03/22 8:33:00 EST, Route to Pharmacy Electronically, [facility]/pharmacy #[id number] Tablet, Partial fill upon patient... Start Date: [...] Care Team Personnel Name: Cadence Bryant Position: [facility] PCO Associate Professional Member Role: PCP Address: Address: [address] [place] [address]- Care Team Related Persons Name: RAÚL CRISTOBAL Address: home [address] [phone] [place] [address] Name: KAYLAH WEAVER
--- OUTSIDE RECORDS SUMMARY | 2023-05-12 17:34 | XMS_ITS | Continuity of Care Document ---
Author Name Unknown Organization [facility] Address [address] [place] [address]- Care Team Providers Care Field Agronomist Name Role Phone Passer Cadence JOHNS Primary Care Physician Encounter [facility] [place] Date(s): 11/21/22 - 12/21/22 [facility]/[address] [address]- [place] Allergies, Adverse Reactions, Alerts Substance Reaction [...] 09/03/22 10:54:00 EDT, Route to Pharmacy Electronically, [facility]/pharmacy #[id number], 168, cm, 09/03/22 10:22:00 EDT, Height [...] Refills, Maintenance, 12/10/21 10:58:00 EDT, Suppository, [facility], Partial fill upon patient request if the prescription is for a schedule II opioid drug., 168, cm, ... Start Date: 12/10/21 Stop Date: 01/07/22 Status: Ordered hydrOXYzine hydrochloride 25 mg oral tablet 1 tablet = 25 mg, By Mouth, 2 times a day, PRN for anxiety, # 180 tablet, 2 Refills, Maintenance, 09/03/22 10:54:00 EDT, Tablet, [facility]/pharmacy #[id number], Partial fill upon patient request if the prescription is for a schedule II opioid drug., 168 cm, 08/11... Start Date: 09/03/22 Status: Ordered MiraLax oral powder for reconstitution = 17 Gm, By Mouth, 2 times a day before breakfast and dinne, dissolve in water before taking, # 255Gm, 6 Refills, Maintenance, 07/03/22 8:33:00 EST, REC Powder, [facility]/pharmacy #[id number], Partial fill uponpatient request if the [...] 07/03/22 8:33:00 EST, Route to Pharmacy Electronically, [facility]/pharmacy #[id number] Tablet, Partial fill upon patient... Start Date: [...] pack or more)/day in last 30 days; Number of years: 20; Total pack years: 14; entered on: 02/12/21 Sex Patient Care team information Care Team Personnel Name: Cadence Bryant Position: [facility] PCO Associate Professional Member Role: PCP Address: Address: [address] [place] [address]- Care Team Related Persons Name: RAÚL CRISTOBAL Address: home [address] [phone] [place] [address] Name: KAYLAH WEAVER
--- OUTSIDE RECORDS SUMMARY | 2023-05-12 17:34 | XMS_ITS | Continuity of Care Document ---
Author Name Unknown Organization [facility] Address [address] [place] [address]- Care Team Providers Care C Developer Name Role Phone Passer Cadence JOHNS Primary Care Physician Encounter [facility] [place] Date(s): 02/26/23 - 03/28/[address] [address] Attending Physician: AdmAlthea abreu Admitting Physician: Admtr, [...] tablet, By Mouth, 2 times a day, for anxiety and sleep, # 180 tablet, Refills 1, Tot. Refills 1, Maintenance, 02/19/23 16:38:00 EDT, Route to Pharmacy Electronically, [facility]/pharmacy #[id number], 168, cm, 02/19/23 15:42:00 EDT, Height, 85.4, kg, 10... Start Date: 02/19/23 Status: Ordered cyclobenzaprine 5 mg oral tablet 1 tablet, By Mouth, 2 times a day, PRN NEEDED FOR BACK PAIN, # 180 tablet, 1 Refills, Maintenance, 02/19/23 16:38:00 EDT, [facility]/pharmacy #[id number], 168, cm, 02/19/23 15:42:00 EDT, Height, 85.4, kg, 02/19/23 15:42:00 EDT, Dry Weight Start Date: 02/19/23 Status: Ordered gabapentin 300 mg oral capsule 1, capsule, By Mouth, Daily at bedtime, PRN, # 90 capsule, Refills 1, Tot. Refills 1, Maintenance, NEEDED FOR NERVE PAIN, 02/19/23 16:38:00 EDT, Route to Pharmacy Electronically, [facility]/pharmacy #[id number], 168, cm, 02/19/23 15:42:00 EDT, Height, 85.4, kg,... Start Date: 02/19/23 Status: Ordered hydrocortisone topical 25 mg suppository 1 supp = 25 mg, Rectally, 2 times a day, # 28 supp, 1 Refills, Maintenance, 12/10/21 10:58:00 EDT, Suppository, [facility], Partial fill upon patient request if the prescription is for a schedule II opioid drug., 168, cm, 080... Start Date: 12/10/21 Stop Date: 01/07/22 Status: Ordered hydrOXYzine hydrochloride 25 mg oral tablet 1 tablet = 25 mg, By Mouth, Daily, PRN for anxiety, for anxiety, # 90 tablet, 2 Refills, Maintenance, 02/19/23 16:38:00 EDT, Tablet, [facility]/pharmacy #[id number], Partial fill upon patient request if the prescription is for a schedule II opioid drug., 168, cm,... Start Date: 02/19/23 Status: Ordered lidocaine 5% topical film 1 patch, Topically, Daily, remove patches after 12 hours for back pain, # 60 pack/packet, 6 Refills, Maintenance, 02/19/23 16:45:00 EDT, Film, [facility]/pharmacy #[id number], Partial fill upon patient request ifthe prescription is for a schedule II opioid drug.... Start Date: 02/19/23 Status: Ordered meloxicam 15 mg oral tablet See Instructions, TAKE 1 TABLET BY MOUTH NEEDED FOR PAIN WITH FOOD, # 90 tablet, 2 Refills, Maintenance, 02/19/23 16:38:00 EDT, [facility]/pharmacy #207, 168, cm, 02/19/23 15:42:00 EDT, Height, 85.4, kg, 02/19/23 15:42:00 EDT, Dry Weight Start Date: 02/19/23 Status: Ordered MiraLax oral powder for reconstitution [...] tablet, Refills 3,Tot. Refills 3, Maintenance, Constipation, 02/19/23 16:38:00 EDT, Route to Pharmacy Electronically,[facility]/pharmacy #207 Tablet, Partial fill upon patien... Start Date: 02/19/23 Status: Ordered Problem List Condition Confirmation Course [...] Care Team Personnel Name: Cadence Bryant Position: [facility] PCO Associate Professional Member Role: PCP Address: Address: [address] [place] [address]- Care Team Related Persons Name: LAURE CRISTOBALSOL Address: home [address] [phone] [place] [address] Name: KAYLAH WEAVER
--- OUTSIDE RECORDS SUMMARY | 2023-05-12 17:35 | XMS_ITS | Continuity of Care Document ---
Author Name Unknown Organization [facility] Address [address] [place] [address]- Care Team Providers Care Collections Analyst Name Role Phone Passer Cadence JOHNS Primary Care Physician Encounter [facility] [place] Date(s): 01/21/23 - 02/20/23 [facility]/[address] [address]- [place] Allergies, Adverse Reactions, Alerts Substance Reaction [...] 16:38:00 EDT, Route to Pharmacy Electronically, [facility]/pharmacy #[id number], 168, cm, 02/19/23 15:42:00 EDT, Height, 85.4, kg, 10... Start Date: 02/19/23 Status: Ordered cyclobenzaprine 5 mg oral tablet 1 tablet, By Mouth, 2 times a day, PRN NEEDED FOR BACK PAIN, # 180 tablet, 1 Refills, Maintenance, 02/19/23 16:38:00 EDT, [facility]/pharmacy #207, 168, cm, 02/19/23 15:42:00 EDT, Height, 85.4, kg, 02/19/23 15:42:00 EDT, Dry Weight Start Date: 02/19/23 Status: Ordered gabapentin 300 mg oral capsule 1, capsule, By Mouth, Daily at bedtime, PRN, # 90 capsule, Refills 1, Tot. Refills 1, Maintenance, NEEDED FOR NERVE PAIN, 02/19/23 16:38:00 EDT, Route to Pharmacy Electronically, [facility]/pharmacy #207, 168, cm, 02/19/23 15:42:00 EDT, Height, 85.4, kg,... Start Date: 02/19/23 Status: Ordered hydrocortisone topical 25 mg suppository 1 supp = 25 mg, Rectally, 2 times a day, # 28 supp, 1 Refills, Maintenance, 12/10/21 10:58:00 EDT, Suppository, [facility], Partial fill upon patient request if the prescription is for a schedule II opioid drug., 168, cm, 0... Start Date: 12/10/21 Stop Date: 01/07/22 Status: Ordered hydrOXYzine hydrochloride 25 mg oral tablet 1 tablet = 25 mg, By Mouth, Daily, PRN for anxiety, for anxiety, # 90 tablet, 2 Refills, Maintenance, 02/19/23 16:38:00 EDT, Tablet, [facility]/pharmacy #[id number], Partial fill upon patient request if the prescription is for a schedule II opioid drug., 168, cm,... Start Date: 02/19/23 Status: Ordered lidocaine 5% topical film 1 patch, Topically, Daily, remove patches after 12 hours for back pain, # 60 pack/packet, 6 Refills, Maintenance, 02/19/23 16:45:00 EDT, Film, [facility]/pharmacy #[id number], Partial fill upon patient request ifthe prescription is for a schedule II opioid drug.... Start Date: 02/19/23 Status: Ordered meloxicam 15 mg oral tablet See Instructions, TAKE 1 TABLET BY MOUTH NEEDED FOR PAIN WITH FOOD, # 90 tablet, 2 Refills, Maintenance, 02/19/23 16:38:00 EDT, [facility]/pharmacy #[id number], 168, cm, 02/19/23 15:42:00 EDT, Height, 85.4, kg, 02/19/23 15:42:00 EDT, Dry Weight Start Date: 02/19/23 Status: Ordered MiraLax oral powder for reconstitution = 17 Gm, By Mouth, 2 times a day before breakfast and dinne, dissolve in water before taking, # 255Gm, 6 Refills, Maintenance, 07/03/22 8:33:00 EST, REC Powder, [facility]/pharmacy #207, Partial fill uponpatient request if the prescription is for a schedu... Start Date: 07/03/22 Status: Ordered Senna 8.6 mg oral tablet 17.2 mg, 2, tablet, By Mouth, Daily at bedtime, PRN, with plenty of water, # 180 tablet, Refills 3,Tot. Refills 3, Maintenance, Constipation, 02/19/23 16:38:00 EDT, Route to Pharmacy Electronically,[facility]/pharmacy #[id number] Tablet, Partial fill upon patien... Start Date: [...] Associate Professional Member Role: PCP Address: Address: [address] [place] [address]- Care Team Related Persons Name: LEVAR RAÚL Address: home [address] [phone] [place] [address] Name: KAYLAH WEAVER
--- OUTSIDE RECORDS SUMMARY | 2023-05-12 17:35 | XMS_ITS | Continuity of Care Document ---
Author Name Unknown Organization [facility] Address [address] [place] [address]- Care Team Providers Care Sap Portal Developer Name Role Phone Passer Cadence JOHNS Primary Care Physician [place] [facility] [place]23 - 02/19/23 [facility]/[address] [address]- [place] Allergies, Adverse Reactions, Alerts Substance Reaction [...] 02/19/23 16:38:00 EDT, Route to Pharmacy Electronically, [facility]/pharmacy #[id number], 168, cm, 02/19/23 15:42:00 EDT, Height, 85.4, kg, ... Start Date: 02/19/23 Status: Ordered cyclobenzaprine 5 mg oral tablet 1 tablet, By Mouth, 2 times a day, PRN NEEDED FOR BACK PAIN, # 180 tablet, 1 Refills, Maintenance, 02/19/23 16:38:00 EDT, [facility]/pharmacy #[id number], 168, cm, 02/19/23 15:42:00 EDT, Height, 85.4, kg, 02/19/23 15:42:00 EDT, Dry Weight Start Date: 02/19/23 Status: Ordered gabapentin 300 mg oral capsule 1, capsule, By Mouth, Daily at bedtime, PRN, # 90 capsule, Refills 1, Tot. Refills 1, Maintenance, NEEDED FOR NERVE PAIN, 02/19/23 16:38:00 EDT, Route to Pharmacy Electronically, [facility]/pharmacy #[id number], 168, cm, 02/19/23 15:42:00 EDT, Height, 85.4, kg,... Start Date: 02/19/23 Status: Ordered hydrocortisone topical 25 mg suppository 1 supp = 25 mg, Rectally, 2 times a day, # 28 supp, 1 Refills, Maintenance, 12/10/21 10:58:00 EDT, Suppository, [facility], Partial fill upon patient request if the prescription is for a schedule II opioid drug., 168, cm, 0... Start Date: 12/10/21 Stop Date: 01/07/22 Status: Ordered hydrOXYzine hydrochloride 25 mg oral tablet 1 tablet = 25 mg, By Mouth, Daily, PRN for anxiety, for anxiety, # 90 tablet, 2 Refills, Maintenance, 02/19/23 16:38:00 EDT, Tablet, [facility]/pharmacy #[id number], Partial fill upon patient request if the prescription is for a schedule II opioid drug., 168, cm,... Start Date: 02/19/23 Status: Ordered lidocaine 5% topical film 1 patch, Topically, Daily, remove patches after 12 hours for back pain, # 60 pack/packet, 6 Refills, Maintenance, 02/19/23 16:45:00 EDT, Film, [facility]/pharmacy #[id number], Partial fill upon patient request ifthe prescription is for a schedule II opioid drug.... Start Date: 02/19/23 Status: Ordered meloxicam 15 mg oral tablet See Instructions, TAKE 1 TABLET BY MOUTH NEEDED FOR PAIN WITH FOOD, # 90 tablet, 2 Refills, Maintenance, 02/19/23 16:38:00 EDT, [facility]/pharmacy #207, 168, cm, 02/19/23 15:42:00 EDT, Height, 85.4, kg, 02/19/23 15:42:00 EDT, Dry Weight Start Date: 02/19/23 Status: Ordered MiraLax oral powder for reconstitution = 17 Gm, By Mouth, 2 times a day before breakfast and dinne, dissolve in water before taking, # 255Gm, 6 Refills, Maintenance, 07/03/22 8:33:00 EST, REC Powder, [facility], Partial fill uponpatient request if the prescription is for a schedu... Start Date: 07/03/22 Status: Ordered Senna 8.6 mg oral tablet 17.2 mg, 2, tablet, By Mouth, Daily at bedtime, PRN, with plenty of water, # 180 tablet, Refills 3,Tot. Refills 3, Maintenance, Constipation, 02/19/23 16:38:00 EDT, Route to Pharmacy Electronically,[facility]/pharmacy #[id number] Tablet, Partial fill upon patien... Start [...] Associate Professional Member Role: PCP Address: Address: [address] [place] [address]- Care Team Related Persons Name: LAURE CRISTOBALSOL Address: home [address] [phone] [place] [address] Name: KAYLAH WEAVER
--- OUTSIDE RECORDS SUMMARY | 2023-05-12 17:35 | XMS_ITS | Continuity of Care Document ---
Author Name Unknown Organization [facility] Address [address] [place] [address]- Care Team Providers Care Assistant Store Manager Trainee Name Role Phone Cadence Bryant Primary Care Physician Encounter [facility] [place] Date(s): 02/17/23 - 03/28/[address] [address] Attending Physician: Cadence rByant Admitting Physician: Cadence Bryant Referring Physician: Cadence [...] 02/19/23 16:38:00 EDT, Route to Pharmacy Electronically, [facility]/pharmacy #[id number], 168, cm, 02/19/23 15:42:00 EDT, Height, 85.4, kg, ... Start Date: 02/19/23 Status: Ordered cyclobenzaprine 5 mg oral tablet 1 tablet, By Mouth, 2 times a day, PRN NEEDED FOR BACK PAIN, # 180 tablet, 1 Refills, Maintenance, 02/19/23 16:38:00 EDT, [facility]/pharmacy #[id number], 168, cm, 02/19/23 15:42:00 EDT, Height, 85.4, kg, 02/19/23 15:42:00 EDT, Dry Weight Start Date: 02/19/23 Status: Ordered gabapentin 300 mg oral capsule 1, capsule, By Mouth, Daily at bedtime, PRN, # 90 capsule, Refills 1, Tot. Refills 1, Maintenance, NEEDED FOR NERVE PAIN, 02/19/23 16:38:00 EDT, Route to Pharmacy Electronically, [facility]/pharmacy #[id number], 168, cm, 02/19/23 15:42:00 EDT, Height, 85.4, kg,... Start Date: 02/19/23 Status: Ordered hydrocortisone topical 25 mg suppository 1 supp = 25 mg, Rectally, 2 times a day, # 28 supp, 1 Refills, Maintenance, 12/10/21 10:58:00 EDT, Suppository, [facility], Partial fill upon patient request if the prescription is for a schedule II opioid drug., 168, cm, 080... Start Date: 12/10/21 Stop Date: 01/07/22 Status: Ordered hydrOXYzine hydrochloride 25 mg oral tablet 1 tablet = 25 mg, By Mouth, Daily, PRN for anxiety, for anxiety, # 90 tablet, 2 Refills, Maintenance, 02/19/23 16:38:00 EDT, Tablet, [facility]/pharmacy #[id number], Partial fill upon patient request if the prescription is for a schedule II opioid drug., 168, cm,... Start Date: 02/19/23 Status: Ordered lidocaine 5% topical film 1 patch, Topically, Daily, remove patches after 12 hours for back pain, # 60 pack/packet, 6 Refills, Maintenance, 02/19/23 16:45:00 EDT, Film, [facility]/pharmacy #[id number], Partial fill upon patient request ifthe prescription is for a schedule II opioid drug.... Start Date: 02/19/23 Status: Ordered meloxicam 15 mg oral tablet See Instructions, TAKE 1 TABLET BY MOUTH NEEDED FOR PAIN WITH FOOD, # 90 tablet, 2 Refills, Maintenance, 02/19/23 16:38:00 EDT, [facility]/pharmacy #207, 168, cm, 02/19/23 15:42:00 EDT, [...] Constipation, 02/19/23 16:38:00 EDT, Route to Pharmacy Electronically,[facility]/pharmacy #[id number] Tablet, Partial fill upon patien... Start Date: [...] Associate Professional Member Role: PCP Address: Address: [address] [place] [address]- Care Team Related Persons Name: LAURE CRISTOBALSOL Address: [address] [phone] [place] [address] Name: KAYLAH WEAVER
--- OUTSIDE RECORDS SUMMARY | 2023-05-12 17:35 | XMS_ITS | Continuity of Care Document ---
Author Name Unknown Organization [facility] Address [address] [place] [address]- Care Team Providers Care Title Specialist Name Role Phone Passer Cadence JOHNS Primary Care Physician [place] [facility] [place](s): 12/10/22 - 01/09/23 [facility]/[address] [address]- [place] Allergies, Adverse Reactions, Alerts Substance Reaction [...] Replace Required Details, Route to Pharmacy Electronically, [id number], 168, cm, 04... Start Date: 01/09/23 Status: Ordered cyclobenzaprine 5 mg oral tablet 1 tablet, By Mouth, 2 times a day, PRN NEEDED FOR BACK PAIN, # 60 tablet, 3 Refills, Maintenance, 09/03/22 10:53:00 EDT, [facility]/pharmacy #[id number], 168, cm, 09/03/22 10:22:00 EDT, Height Start Date: 09/03/22 Status: Ordered gabapentin 300 mg oral capsule 300 mg, 1, capsule, By Mouth, Daily at bedtime, for nerve pain, # 90 capsule, Refills 1, Tot. Refills 1, Maintenance, 07/03/22 8:33:00 EST, Route to Pharmacy Electronically, [facility]/pharmacy #[id number], Partial fill upon patient request if the prescription is... Start Date: 07/03/22 Status: Ordered hydrocortisone topical 25 mg suppository 1 supp = 25 mg, Rectally, 2 times a day, # 28 supp, 1 Refills, Maintenance, 12/10/21 10:58:00 EDT, Suppository, [facility], Partial fill upon patient request if the prescription is for a schedule II opioid drug., 168, cm, ... Start Date: 12/10/21 Stop Date: 01/07/22 Status: Ordered hydrOXYzine hydrochloride 25 mg oral tablet 1 tablet = 25 mg, By Mouth, 2 times a day, PRN for anxiety, # 180 tablet, 2 Refills, Maintenance, 09/03/22 10:54:00 EDT, Tablet, [facility]/pharmacy #[id number], Partial fill upon patient request if the prescription is for a schedule II opioid drug., 168, cm, 08/11... Start Date: 09/03/22 Status: Ordered meloxicam 15 mg oral tablet See Instructions, TAKE 1 TABLET BY MOUTH NEEDED FOR PAIN WITH FOOD, # 90 tablet, 0 Refills, Maintenance, 01/09/23 14:53:00 EDT, [facility] STORE [id number], 168, cm, 09/03/22 10:22:00 EDT, Height Start Date: 01/09/23 Status: Ordered MiraLax oral powder for reconstitution = 17 Gm, By Mouth, 2 times a day before breakfast and dinne, dissolve in water before taking, # 255Gm, 6 Refills, Maintenance, 07/03/22 8:33:00 EST, REC Powder, [facility]/pharmacy #[id number], Partial fill uponpatient request if the prescription is for a schedu... Start Date: 07/03/22 Status: Ordered Senna 8.6 mg oral tablet 17.2 mg, 2, tablet, By Mouth, Daily at bedtime, PRN, with plenty of water, # 180 tablet, Refills 3,Tot. Refills 3, Maintenance, Constipation, 07/03/22 8:33:00 EST, Route to Pharmacy Electronically, [facility]/pharmacy #[id number] Tablet, Partial fill upon patient... Start Date: [...] Associate Professional Member Role: PCP Address: Address: [address] [place] [address] Care Team Related Persons Name: RAÚL CRISTOBAL Address: home [address] [place] [address] FIRST FLOOR [phone] [place] [address] Name: KAYLAH WEAVER
--- OUTSIDE RECORDS SUMMARY | 2023-05-12 17:36 | XMS_ITS | Continuity of Care Document ---
Author Name Unknown Organization [facility] Address [address] [place] [address]- Care Team Providers Care Bundle Clerk Name Role Phone Passer Cadence JOHNS Primary Care Physician Encounter [facility] [place] Date(s): 02/19/23 - 03/21/23 [facility]/[address] [address]- Attending Physician: Admtr, [id number] Admitting Physician: Admtr, [...] 02/19/23 16:38:00 EDT, Route to Pharmacy Electronically, [facility]/pharmacy #[id number], 168, cm, 02/19/23 15:42:00 EDT, Height, 85.4, kg, ... Start Date: 02/19/23 Status: Ordered cyclobenzaprine 5 mg oral tablet 1 tablet, By Mouth, 2 times a day, PRN NEEDED FOR BACK PAIN, # 180 tablet, 1 Refills, Maintenance, 02/19/23 16:38:00 EDT, [facility]/pharmacy #[id number], 168, cm, 02/19/23 15:42:00 EDT, Height, 85.4, kg, 02/19/23 15:42:00 EDT, Dry Weight Start Date: 02/19/23 Status: Ordered gabapentin 300 mg oral capsule 1, capsule, By Mouth, Daily at bedtime, PRN, # 90 capsule, Refills 1, Tot. Refills 1, Maintenance, NEEDED FOR NERVE PAIN, 02/19/23 16:38:00 EDT, Route to Pharmacy Electronically, [facility]/pharmacy #[id number], 168, cm, 02/19/23 15:42:00 EDT, Height, 85.4, kg,... Start Date: 02/19/23 Status: Ordered hydrocortisone topical 25 mg suppository 1 supp = 25 mg, Rectally, 2 times a day, # 28 supp, 1 Refills, Maintenance, 12/10/21 10:58:00 EDT, Suppository, [facility], Partial fill upon patient request if the prescription is for a schedule II opioid drug., 168, cm, 0... Start Date: 12/10/21 Stop Date: 01/07/22 Status: Ordered hydrOXYzine hydrochloride 25 mg oral tablet 1 tablet = 25 mg, By Mouth, Daily, PRN for anxiety, for anxiety, # 90 tablet, 2 Refills, Maintenance, 02/19/23 16:38:00 EDT, Tablet, [facility]/pharmacy #[id number], Partial fill upon patient request if the prescription is for a schedule II opioid drug., 168, cm,... Start Date: 02/19/23 Status: Ordered lidocaine 5% topical film 1 patch, Topically, Daily, remove patches after 12 hours for back pain, # 60 pack/packet, 6 Refills, Maintenance, 02/19/23 16:45:00 EDT, Film, [facility]/pharmacy #[id number], Partial fill upon patient request ifthe prescription is for a schedule II opioid drug.... Start Date: 02/19/23 Status: Ordered meloxicam 15 mg oral tablet See Instructions, TAKE 1 TABLET BY MOUTH NEEDED FOR PAIN WITH FOOD, # 90 tablet, 2 Refills, Maintenance, 02/19/23 16:38:00 EDT, [facility]/pharmacy #[id number], 168, cm, 02/19/23 15:42:00 EDT, [...] Constipation, 02/19/23 16:38:00 EDT, Route to Pharmacy Electronically,[facility]/pharmacy #[id number] Tablet, Partial fill upon patien... Start [...] Associate Professional Member Role: PCP Address: Address: [address] [place] [id number]- Care Team Related Persons Name: RAÚL CRISTOBAL Address: home [address] FIRST FLOOR [phone] [place] [address] Name: KAYLAH WEAVER
== END 2023-05-12 18:07 | disposition home or self-care (01) ==
PROVIDERS: Emergency Provider Emergency Medicine
DX: T16.1XXA Foreign body in right ear, initial encounter (principal); W44.8XXA Other foreign body entering into or through a natural orifice, initial encounter; H92.01 Otalgia, right ear; Y93.E8 Activity, other personal hygiene; Y92.012 Bathroom of single-family (private) house as the place of occurrence of the external cause; Y99.9 Unspecified external cause status
CPT/HCPCS: 99282; 99283

== ENCOUNTER 2024-02-13 11:08 | Emergency (ER) | payer OTHER, SELFPAY ==
[2024-02-13 11:34] VITALS: BP 115/75; PULSE 92; RESP 16; TEMP 36.1; O2SAT 99; BMI 29.2
--- NOTE | 2024-02-13 11:34 | ED.GENADULT ---
HPI - General Adult General Chief complaint: General Medical Stated complaint: dizzy, fell, hemorrhoids(bleeding) Time Seen by Provider: 02/13/24 12:43 Source: patient Mode of arrival: ambulatory Limitations: no limitations History of Present Illness ED Provider: Sherry Underwood PA-C HPI narrative: Patient is a 48 year old assigned male at with a history of hemorrhoids and tobacco use via vape presenting to the emergency department today after a syncopal episode yesterday. Patient states that he has bleeding hemorrhoids at baseline and yesterday, he was straining some while having a bowel movement and hitting his vape pen when he got up and felt dizzy, got very warm, and passed out for a brief moment. Patient denies any current dizziness, lightheadedness, abdominal pain, nausea, vomiting, fever, chills, blurry vision, double vision, loss of vision, chest pain, difficulty breathing, shortness of breath, back pain, night sweats, pain with urination, increased urinary frequency, increased urinary urgency, blood in his urine or stool, recent trauma or falls, bowel incontinence, bladder incontinence, or any other complaints at this time. Relieving factors: none Exacerbating factors: none Associated symptoms: denies other symptoms Treatments prior to arrival: none Related Data Previous Rx's ?Medication ?Instructions ?Recorded famotidine 20 mg tablet (Pepcid) 20 mg PO DAILY #30 tabs 10/23/20 ketorolac 10 mg tablet 10 mg PO Q8H PRN pain #10 tabs 05/20/21 lidocaine 5 % topical patch 1 patch topical DAILY pain #15 ea 05/20/21 (Lidoderm) prednisone 20 mg tablet 40 mg (2 x 20 mg) PO DAILY rash 5 05/20/21 days #10 tabs Allergies Allergy/AdvReac Type Severity Reaction Status Date / Time No Known Allergies Allergy Verified 02/13/24 11:36 Review of Systems Constitutional: Constitutional: Reports no additional constitutional complaints, Denies chills, Denies fever(s) and Denies night sweats Eyes: Eyes: Reports no additional eye complaints, Denies blurry vision, Denies change in vision, Denies diplopia, Denies eye discharge, Denies loss of vision and Denies eye pain ENT: Denies dizziness Cardiovascular: Cardiovascular: Reports no additional cardiovascular complaints, Denies chest pain, Denies lightheadedness, Denies Loss of Consciousness and Denies dyspnea Respiratory: Respiratory: Reports no additional respiratory complaints and Denies dyspnea Gastrointestinal: Gastrointestinal: Reports no additional gastrointestinal complaints, Denies abdominal pain, Denies melena, Denies hematochezia, Denies change in bowel habits and Denies change in stool character Genitourinary: Genitourinary: Reports no additional male genitourinary complaints, Denies hematuria, Denies oliguria, Denies difficulty urinating, Denies dysuria, Denies urinary frequency, Denies urinary hesitancy, Denies urinary incontinence and Denies urinary urgency Musculoskeletal: Musculoskeletal: Reports no additional musculoskeletal complaints, Denies numbness and Denies tingling Neurologic: Denies dizziness, Denies loss of vision, Denies numbness and Denies tingling Psychiatric: Psychiatric: Reports no additional psychiatric complaints Endocrine: Endocrine: Reports no additional endocrine complaints Hematologic/Lymphatic: Hematologic/Lymphatic: Reports no additional hematologic/lymphatic complaints Allergic/Immunologic: Allergic/Immunologic: Reports no additional allergic/immunologic complaints PMFSH Past Medical History Attestation statement: The following information was validated with the patient. Source: old records reviewed and nursing notes reviewed Medical History Hepatitis C Asthma Social History Social History Advance Directives: No Advance Directives Information Provided: No Physical Exam ED Vital Signs: Vital Signs - 24 hr 02/13/24 11:34 02/13/24 13:36 Temperature 97 F 97.5 F Pulse Rate 92 94 Respiratory Rate 16 18 Blood Pressure 115/75 122/72 Pulse Oximetry 99 99 Oxygen Delivery Method Room Air Room Air BMI result Body Mass Index 29.2 Const General: cooperative, no acute distress, alert and awake Nutritional Appearance: well nourished Orientation/consciousness: patient oriented x3 Limitations: no limitations HENMT Head: Yes normal to inspection and Yes atraumatic Ears: hearing grossly normal bilaterally and external ears normal General nose exam: Normal external nose present, no nasal discharge noted and no epistaxis Face and sinus: Yes normal facial exam, No abrasion and No laceration Mouth: Normal oral and palatal mucosa present, no drooling and no muffled voice Eyes General: appearance normal, both eyes and all related structures Periorbital: periorbital findings normal Eyelids: Yes eyelids normal Conjunctivae: conjunctivae normal Pupils: Equal, round and reactive pupils present EOM: EOMs intact bilaterally Neck Neck: Yes normal visual inspection, Yes full ROM and Yes no lymphadenopathy Chest Chest palpation & inspection: normal inspection of the chest Resp Effort & Inspection: normal respiratory effort and able to speak in complete sentences GI Inspection: Yes normal to inspection Neuro General: patient oriented x3 and moves all extremities Cranial nerves: Yes Equal, round and reactive pupils present Cognition (Neuro): normal cognition Extrem General: Yes normal to inspection, Yes full ROM and Yes capillary refill normal Psych Appearance: grossly normal Mental Status: mental status grossly normal Affect: normal affect Attitude: cooperative Thought process: Normal thought process present Thought content: Normal thought content present Insight: Good insight present (Psych) Course Course Course Narrative: This is a Rapid Medical Examination (RME) performed by Homero Mendez PA-C in triage. Full HPI, ROS, assessment and treatment plan per primary provider in the Main ED. 48 yo male here for eval of rectal bleeding x3 days. admits to blood in toilet bowl and on wiping. hx of hemorrhoids. after passing BM yesterday, he stood up, became dizzy, vision went black, and had syncopal episode. denies head strike. no thinners. his mom came in immediately and helped patient up. at present, reports rectal discomfort. denies abd pain, chest pain, sob, fatigue. + exam deferred d/t privacy concerns Plan: labs, obs, ekg Medications Administered Discontinued Medications Generic Name Dose Route Start Last Admin Trade Name Jesusq PRN Reason Stop Dose Admin Sodium Chloride 1,000 mls @ 999 mls/hr 02/13/24 13:00 02/13/24 13:35 Ns IV 02/13/24 14:00 Not Given .Q1H1M [facility] Medical Decision Making Medical Decision Making MDM Narrative: Patient is a 48 year old assigned male at with a history of hemorrhoids and tobacco use via vape presenting to the emergency department today after a syncopal episode yesterday. Patient's physical exam was unremarkable. Patient's blood work was unremarkable. Patient's EKG was unremarkable. Patient's clinical presentation is most consistent with a vasovagal syncopal episode. I explained my physical exam findings as well as all test results to the patient. I answered all questions asked by the patient. I stressed the importance of the patient taking his medication as directed (either prescribed or as the over the counter packaging recommends). I stressed the importance of the patient following up with his primary care provider. I stressed the importance of the patient returning to the emergency department immediately if his symptoms were to worsen or if he were to develop any dizziness, shortness of breath, difficulty breathing, chest pain, blurry vision, loss of vision, nausea, vomiting, abdominal pain, fever, chills, back pain, or any other complaints. Patient verbalized agreement and understanding with this treatment plan and discharge. Differential Diagnosis Differential Diagnoses: The differential diagnosis associated with the presentation includes Syncope Vasovagal syncope Hemorrhoids Admission/Observation Consideration of admission/observation: Escalation of care including admission/observation considered Patient would have been admitted to the hospital had his work up had any findings where hospital admission was appropriate and his clinical presentation warranted hospital admission. Lab Data [facility] Lab Attestation statement: I reviewed the patient's lab results. My interpretation of these results are in the [facility] Rationale portion of this note. 02/13/24 12:08 02/13/24 12:07 Labs: Lab Results 02/13/24 02/13/24 Range/Units 12:07 12:08 WBC 8.1 (4.8-10.8) X10*3/uL RBC 4.42 L (4.60-5.80) X10*6/uL Hgb 11.5 L (14.0-18.0) g/dl Hct 35.9 L (42.0-52.0) % MCV 81.2 (80.0-98.0) fL MCH 26.0 L (27.0-33.0) pg MCHC 32.0 (31.0-36.0) g/dl RDW 15.9 (11.0-16.0) % Plt Count 207 (160-400) X10*3/uL MPV 11.4 (9.4-12.4) fL Immature Gran % (Auto) 0.2 (0.0-0.4) % Neut % (Auto) 64.7 (45-73) % Lymph % (Auto) 23.9 (20-40) % [place] % (Auto) 5.6 (2-11) % Eos % (Auto) 5.0 H (0-4) % Baso % (Auto) 0.6 (0-2) % Lymph # (Auto) 1.9 (1.2-4.9) X10*3/uL [place] # (Auto) 0.5 (0.1-1.2) X10*3/uL Eos # (Auto) 0.4 (0.0-0.4) X10*3/uL Baso # (Auto) 0.1 (0.0-0.2) X10*3/uL Abs Immat Gran (auto) 0.02 (0.00-0.03) X10*3/uL Absolute Neuts (auto) 5.2 (2.0-8.3) x10*3/uL Absolute Nucleated RBC 0.000 (0.0-0.012) X10*3/uL Nucleated RBC % (auto) 0.0 (0.0-0.2) /100WBC Sodium 140 (135-145) mmol/L Potassium 4.4 (3.3-5.1) mmol/L Chloride 107 (96-108) mmol/L Carbon Dioxide 28 (22-29) mmol/L Anion Gap 9 L (12-20) BUN 15 (9-16) mg/dL Creatinine 0.91 (0.5-1.4) mg/dL Estim Creat Clear Calc 92.1 Estimated GFR > 60 Random Glucose 97 (60-115) mg/dL Calcium 9.7 D (8.4-10.2) mg/dL Magnesium 2.1 (1.6-2.6) mg/dL Total Bilirubin 0.2 (0.0-1.0) mg/dL AST 13 (5-37) U/L ALT 8 (0-40) U/L Alkaline Phosphatase 82 (39-117) U/L Total Protein 7.4 (6.5-8.0) g/dL Albumin 4.2 (3.5-5.0) g/dL Independent Interpretation I performed an independent interpretation of an: EKG Interpretation: Vent. Rate: 080 BPM Atrial Rate: 080 BPM P-R Int: 148 ms QRS Dur: 088 ms QT Int: 364 ms P-R-T Axes: 068 -13 036 degrees QTc Int: 419 ms Normal sinus rhythm Normal ECG When compared with ECG of 23-OCT-2020 21:07, No significant change was found Referred By: Lori Mendez Electronically Signed By:PERRY DANIELS DOCP Dictated By: Perry Daniels DO Signed By: Electronically signed by Perry Daniels DO 02/13/24 1257 Discharge Plan Discharge Clinical Impression: Syncope, vasovagal, Hemorrhoids Patient Disposition: Home, Self-Care Instructions: Hemorrhoids (DC), Syncope (DC) Additional Instructions: Please avoid straining when having a bowel movement. Please consider stopping the use of your vape and or any type of smoking. Follow up with your primary care provider. Return to the emergency department immediately if your symptoms worsen or if you develop any dizziness, shortness of breath, difficulty breathing, chest pain, blurry vision, loss of vision, nausea, vomiting, abdominal pain, fever, chills, back pain, or any other complaints. Prescriptions: No Action famotidine [Pepcid] 20 mg tablet 20 mg PO DAILY Qty: 30 0RF ketorolac 10 mg tablet 10 mg PO Q8H PRN (Reason: pain) Qty: 10 0RF Rx Instructions: Given 1st dose in the ED prednisone 20 mg tablet 40 mg PO DAILY 5 Days Qty: 10 0RF lidocaine [Lidoderm] 5 % adhesive patch,medicated 1 patch topical DAILY Qty: 15 0RF Rx Instructions: leave on most painful area for up to 12 hrs. May be substituted Referrals: Cadence Arevalo PA [Primary Care Provider] - Interventions: ED Discharge Assessment Last Done: 02/13/24 13:36 Discharge Date/Time: 02/13/24 13:39 Print Language: Welsh
--- NOTE | 2024-02-13 11:37 | ECG_ITS ---
Test Reason : dizziness Blood Pressure : / mmHG Vent. Rate : 080 BPM Atrial Rate : 080 BPM P-R Int : 148 ms QRS Dur : 088 ms QT Int : 364 ms P-R-T Axes : 068 -13 036 degrees QTc Int : 419 ms Normal sinus rhythm Normal ECG When compared with ECG of 23-OCT-2020 21:07, No significant change was found Referred By: Lori Mendez Electronically Signed By:PERRY VERGARA
[2024-02-13 12:14] LABS: MANUAL DIFF FLAG NO
[2024-02-13 12:18] LABS: Basophils Absolute Auto 0.1 X10*3/uL (0.0-0.2); Basophils Percent Auto 0.6 % (0-2); Eosinophils Absolute Auto 0.4 X10*3/uL (0.0-0.4); Hematocrit 35.9 % (42.0-52.0); Hemoglobin 11.5 g/dl (14.0-18.0); Imm Gran Abs Auto 0.02 X10*3/uL (0.00-0.03); Imm Gran Pct Auto 0.2 % (0.0-0.4); Lymphocytes Absolute Auto 1.9 X10*3/uL (1.2-4.9); Lymphocytes Percent Auto 23.9 % (20-40); Mean Corpuscular Volume 81.2 fL (80.0-98.0); Mean Platelet Volume 11.4 fL (9.4-12.4); Monocytes Absolute Auto 0.5 X10*3/uL (0.1-1.2); Monocytes Percent Auto 5.6 % (2-11); Neutrophils Absolute Auto 5.2 x10*3/uL (2.0-8.3); Neutrophils Percent Auto 64.7 % (45-73); Platelet Count 207 X10*3/uL (160-400); Red Blood Count 4.42 X10*6/uL (4.60-5.80); Red Cell Distribution Width 15.9 % (11.0-16.0); White Blood Count 8.1 X10*3/uL (4.8-10.8)
[2024-02-13 12:32] LABS: Alanine Aminotransferase 8 U/L (0-40); Albumin Level 4.2 g/dL (3.5-5.0); Alkaline Phosphatase 82 U/L (39-117); Anion Gap 9 (12-20); Aspartate Amino Transferase 13 U/L (5-37); Bilirubin Total 0.2 mg/dL (0.0-1.0); Blood Urea Nitrogen 15 mg/dL (9-16); Calcium 9.7 mg/dL (8.4-10.2); Carbon Dioxide 28 mmol/L (22-29); Chloride 107 mmol/L (96-108); Creatinine Clr Calc Pharmacy 92.1; Estimated Glomerular Filt Rate > 60; Glucose Random 97 mg/dL (60-115); Magnesium 2.1 mg/dL (1.6-2.6); Potassium 4.4 mmol/L (3.3-5.1); Sodium 140 mmol/L (135-145); Total Protein 7.4 g/dL (6.5-8.0)
--- OUTSIDE RECORDS SUMMARY | 2024-02-13 12:41 | XMS_ITS | Continuity of Care Document ---
Author Organization [facility] Address [address] [place] [address]- Care Team Providers Care Co Founder And President Name Role Phone Passer Cadence JOHNS Primary Care Physician [place] [facility] [place]11[place]23 - 01/10/24 [facility]/[address] [address]- Allergies, Adverse Reactions, Alerts Substance Reaction Severity [...] Recorded Medications cloNIDine 0.1 mg oral tablet 1, tablet, By Mouth, 2 times a day, PRN, # 180 tablet, Refills 1, Tot. Refills 1, Maintenance, NEEDED FOR ANXIETY AND SLEEP, 07/16/23 16:53:00 EST, Route to Pharmacy Electronically, [facility]-[id number], 168, cm, 07/16/23 16:28:00 ES... Start Date: 07/16/23 Status: Ordered cyclobenzaprine 5 mg oral tablet 1 tablet, By Mouth, 2 times a day, PRN NEEDED FOR BACK PAIN, # 180 tablet, 1 Refills, Maintenance, 11/14/23 15:04:00 EDT, [facility]/pharmacy #[id number], 168, cm, 10/24/23 11:19:00 EDT, Height, 85, kg, 07/16/23 16:28:00 EST, Dry Weight Start Date: 11/14/23 Status: Ordered gabapentin 300 mg oral capsule 1, capsule, By Mouth, Daily at bedtime, PRN, # 90 capsule, Refills 1, Tot. Refills 1, Maintenance, NEEDED FOR NERVE PAIN, 11/14/23 15:04:00 EDT, Route to Pharmacy Electronically, [facility]/pharmacy #[id number], 168, cm, 10/24/23 11:19:00 EDT, Height, 85, kg, 0... Start Date: 11/14/23 Status: Ordered hydrocortisone topical 25 mg suppository 1 supp = 25 mg, Rectally, 2 times a day, # 28 supp, 1 Refills, Maintenance, 12/10/21 10:58:00 EDT, Suppository, [facility], Partial fill upon patient request if the prescription is for a schedule II opioid drug., 168, cm, 08/0... Start Date: 12/10/21 Stop Date: 01/07/22 Status: Ordered hydrOXYzine hydrochloride 25 mg oral tablet 1 tablet = 25 mg, By Mouth, Daily, PRN for anxiety, for anxiety, # 90 tablet, 1 Refills, Maintenance, 11/14/23 15:04:00 EDT, Tablet, [facility]/pharmacy #[id number], Partial fill upon patient request if the prescription is for a schedule II opioid drug., 168, cm,... Start Date: 11/14/23 Status: Ordered lidocaine 5% topical film 1 patch, Topically, Daily, remove patches after 12 hours for back pain, # 60 pack/packet, 6 Refills, Maintenance, 11/14/23 15:04:00 EDT, Film, [facility]/pharmacy #[id number], Partial fill upon patient request ifthe prescription is for a schedule II opioid drug.... Start Date: 11/14/23 Status: Ordered meloxicam 15 mg oral tablet See Instructions, TAKE 1 TABLET BY MOUTH NEEDED FOR PAIN WITH FOOD, # 90 tablet, 1 Refills, Maintenance, 11/14/23 15:04:00 EDT, [id number], 168, cm, 10/24/23 11:19:00 EDT, Height, 85, kg, 07/16/23 16:28:00 EST, Dry Weight Start Date: 11/14/23 Status: Ordered Senna 8.6 mg oral tablet 17.2 mg, 2, tablet, By Mouth, Daily at bedtime, PRN, with plenty of water, # 180 tablet, Refills 3,Tot. Refills 3, Maintenance, Constipation, 07/16/23 16:53:00 EST, Route to Pharmacy Electronically,[facility]- Tablet, Partial... Start Date: 07/16/23 Status: Ordered Problem List Condition Confirmation Course Effective Dates Status Health St at Informant Anxiety Confirmed Active Lumbar facet arthropathy Confirmed Active Chronic constipation Confirmed Active Chronic right-sided low back pain with right-sided sciatica Confirmed Active Cigarette smoker Confirmed Active History of hepatitis C Confirmed Active History of substance abuse Confirmed Active Insomnia Confirmed Active Social History Social History Type Response Smoking Status 10 or more cigarette s (1/2 pack or more)/day in last 30 days; Total pack years: 14; Number of years: 20; entered on: 02/12/21 Sex Patient Care team information Care Team Personnel Name: Cadence Bryant Position: [facility] Associate Professional Member Role: PCP Address: Address: [address] [place] [address]- Care Team Related Persons Name: RAÚL CRISTOBAL Address: home [address] [place] [address] FIRST FLOOR [phone] [place] [address] Name: KAYLAH WEAVER
--- OUTSIDE RECORDS SUMMARY | 2024-02-13 12:42 | XMS_ITS | Continuity of Care Document ---
Author Organization [facility] Address [address] [place] [address]- Care Team Providers Care Agricultural Chemicals Inspector Name Role Phone Passer Cadence JOHNS Primary Care Physician Encounter [facility] [place] Date(s): 11/14/23 - 12/14/23 [facility]/[address] [address]- Allergies, Adverse Reactions, Alerts Substance Reaction Severity [...] 07/16/23 16:53:00 EST, Route to Pharmacy Electronically, [facility]-, 168, cm, 07/16/23 16:28:00 ES... Start Date: [...] 11/14/23 15:04:00 EDT, Route to Pharmacy Electronically, [facility]/pharmacy #[id number], 168, cm, 10/24/23 11:19:00 EDT, Height, 85, kg, 0... Start Date: 11/14/23 Status: Ordered hydrocortisone topical 25 mg suppository 1 supp = 25 mg, Rectally, 2 times a day, # 28 supp, 1 Refills, Maintenance, 12/10/21 10:58:00 EDT, Suppository, [facility], Partial fill upon patient request if the prescription is for a schedule II opioid drug., 168, cm, 080... Start Date: 12/10/21 Stop Date: 01/07/22 Status: Ordered hydrOXYzine hydrochloride 25 mg oral tablet 1 tablet = 25 mg, By Mouth, Daily, PRN for anxiety, for anxiety, # 90 tablet, 1 Refills, Maintenance, 11/14/23 15:04:00 EDT, Tablet, [facility]/pharmacy #[id number], Partial fill upon patient request if the prescription is for a schedule II opioid drug., 168, cm,... Start Date: 11/14/23 Status: Ordered lidocaine 5% topical film 1 patch, Topically, Daily, remove patches after 12 hours for back pain, # 60 pack/packet, 6 Refills, Maintenance, 11/14/23 15:04:00 EDT, Film, [facility]/pharmacy #[id number], Partial fill upon patient request ifthe prescription is for a schedule II opioid drug.... Start Date: 11/14/23 Status: Ordered meloxicam 15 mg oral tablet See Instructions, TAKE 1 TABLET BY MOUTH NEEDED FOR PAIN WITH FOOD, # 90 tablet, 1 Refills, Maintenance, 11/14/23 15:04:00 EDT, [facility]/pharmacy #[id number], 168, cm, 10/24/23 11:19:00 EDT, Height, 85, kg, 07/16/23 16:28:00 EST, Dry Weight Start Date: 11/14/23 Status: Ordered Senna 8.6 mg oral tablet 17.2 mg, 2, tablet, By Mouth, Daily at bedtime, PRN, with plenty of water, # 180 tablet, Refills 3,Tot. Refills 3, Maintenance, Constipation, 07/16/23 16:53:00 EST, Route to Pharmacy Electronically,[facility]- Tablet, Partial... Start Date: 07/16/23 Status: Ordered [...] Care Team Personnel Name: Cadence Bryant Position: [facility] Associate Professional Member Role: PCP Address: Address: [address] [place] [address]- Care Team Related Persons Name: RAÚL CRISTOBAL Address: home [address] [place] [address] FIRST FLOOR [phone] [place] [address] Name: KAYLAH WEAVER
--- OUTSIDE RECORDS SUMMARY | 2024-02-13 12:42 | XMS_ITS | Continuity of Care Document ---
Author Organization [facility] Address [address] [place] [address]- Care Team Providers Care Gasoline Attendant Name Role Phone Passer Cadence JOHNS Primary Care Physician Encounter [facility] [place] Date(s): 08/29/23 - 09/28/23 [facility]/[address] [address]- Allergies, Adverse Reactions, Alerts Substance Reaction Severity [...] 07/16/23 16:53:00 EST, Route to Pharmacy Electronically, [id number], 168, cm, 07/16/23 16:28:00 ES... Start Date: 07/16/23 Status: Ordered cyclobenzaprine 5 mg oral tablet 1 tablet, By Mouth, 2 times a day, PRN NEEDED FOR BACK PAIN, # 180 tablet, 1 Refills, Maintenance, 07/16/23 16:54:00 EST, [facility], 168, cm, 07/16/23 16:28:00 EST, Height, 85, kg, 07/16/23 16:28:00 EST, Dry Weight Start Date: 07/16/23 Status: Ordered gabapentin 300 mg oral capsule 1, capsule, By Mouth, Daily at bedtime, PRN, # 90 capsule, Refills 1, Tot. Refills 1, Maintenance, NEEDED FOR NERVE PAIN, 07/16/23 16:53:00 EST, Route to Pharmacy Electronically, [id number], 168, cm, 07/16/23 16:28:00 EST,... Start Date: 07/16/23 Status: Ordered hydrocortisone topical 25 mg suppository [...] anxiety, # 90 tablet, 2 Refills, Maintenance, 07/16/23 16:53:00 EST, Tablet, [facility], Partial fill upon patient request if the prescription is for a schedule II opioid... Start Date: 07/16/23 Status: Ordered lidocaine 5% topical film 1 patch, Topically, Daily, remove patches after 12 hours for back pain, # 60 pack/packet, 6 Refills, Maintenance, 07/16/23 16:53:00 EST, Film, [facility], Partial fill upon patient request if the prescription is for a schedul... Start Date: 07/16/23 Status: Ordered meloxicam 15 mg oral tablet See Instructions, TAKE 1 TABLET BY MOUTH NEEDED FOR PAIN WITH FOOD, # 90 tablet, 2 Refills, Maintenance, 07/16/23 16:53:00 EST, [facility], 168, cm, 07/16/23 16:28:00 EST,Height, 85, kg, 07/16/23 16:28:00 EST, Dry Weight Start Date: 07/16/23 Status: Ordered Senna 8.6 mg oral tablet 17.2 mg, 2, tablet, By Mouth, Daily at bedtime, PRN, with plenty of water, # 180 tablet, Refills 3,Tot. Refills 3, Maintenance, Constipation, 07/16/23 16:53:00 EST, Route to Pharmacy Electronically,[facility]- Tablet, Partial... Start Date: 07/16/23 Status: Ordered [...] Care Team Personnel Name: Cadence Bryant Position: [facility]O Associate Professional Member Role: PCP Address: Address: [address] [place] [address]- Care Team Related Persons Name: RAÚL CRISTOBAL Address: home [address] FIRST FLOOR [phone] [place] [address] Name: KAYLAH WEAVER
--- OUTSIDE RECORDS SUMMARY | 2024-02-13 12:42 | XMS_ITS | Continuity of Care Document ---
Author Organization [facility] Address [address] [place] [address]- Care Team Providers Care Software Controls Engineer Name Role Phone Passer Cadence JOHNS Primary Care Physician [place] [facility] [place](s): 05/13/23 - 06/12/23 [facility]/[address] [address]- [place] Allergies, Adverse Reactions, Alerts Substance Reaction [...] 02/19/23 16:38:00 EDT, Route to Pharmacy Electronically, [facility]/pharmacy #[id number], 168, cm, 02/19/23 15:42:00 EDT, Height, 85.4, kg, ... Start Date: 02/19/23 Status: Ordered cyclobenzaprine 5 mg oral tablet 1 tablet, By Mouth, 2 times a day, PRN NEEDED FOR BACK PAIN, # 180 tablet, 1 Refills, Maintenance, 02/19/23 16:38:00 EDT, [facility]/pharmacy #207, 168, cm, 02/19/23 15:42:00 EDT, Height, 85.4, kg, 02/19/23 15:42:00 EDT, Dry Weight Start Date: 02/19/23 Status: Ordered gabapentin 300 mg oral capsule 1, capsule, By Mouth, Daily at bedtime, PRN, # 90 capsule, Refills 1, Tot. Refills 1, Maintenance, NEEDED FOR NERVE PAIN, 02/19/23 16:38:00 EDT, Route to Pharmacy Electronically, [facility]/pharmacy #207, 168, cm, 02/19/23 15:42:00 EDT, Height, 85.4, kg,... Start Date: 02/19/23 Status: Ordered hydrocortisone topical 25 mg suppository 1 supp = 25 mg, Rectally, 2 times a day, # 28 supp, 1 Refills, Maintenance, 12/10/21 10:58:00 EDT, Suppository, [facility], Partial fill upon patient request if the prescription is for a schedule II opioid drug., 168, cm, 0... Start Date: 12/10/21 Stop Date: 01/07/22 Status: Ordered hydrOXYzine hydrochloride 25 mg oral tablet 1 tablet = 25 mg, By Mouth, Daily, PRN for anxiety, for anxiety, # 90 tablet, 2 Refills, Maintenance, 02/19/23 16:38:00 EDT, Tablet, [facility]/pharmacy #207, Partial fill upon patient request if the prescription is for a schedule II opioid drug., 168, cm,... Start Date: 02/19/23 Status: Ordered lidocaine 5% topical film 1 patch, Topically, Daily, remove patches after 12 hours for back pain, # 60 pack/packet, 6 Refills, Maintenance, 02/19/23 16:45:00 EDT, Film, [facility]/pharmacy #[id number], Partial fill upon patient request ifthe prescription is for a schedule II opioid drug.... Start Date: 02/19/23 Status: Ordered meloxicam 15 mg oral tablet See Instructions, TAKE 1 TABLET BY MOUTH NEEDED FOR PAIN WITH FOOD, # 90 tablet, 2 Refills, Maintenance, 02/19/23 16:38:00 EDT, [facility]/pharmacy #207, 168, cm, 02/19/23 15:42:00 EDT, Height, 85.4, kg, 02/19/23 15:42:00 EDT, Dry Weight Start Date: 02/19/23 Status: Ordered MiraLax oral powder for reconstitution = 17 Gm, By Mouth, 2 times a day before breakfast and dinne, dissolve in water before taking, # 255Gm, 6 Refills, Maintenance, 07/03/22 8:33:00 EST, REC Powder, [facility]/pharmacy #207, Partial fill uponpatient request if the prescription is for a schedu... Start Date: 07/03/22 Status: Ordered Senna 8.6 mg oral tablet 17.2 mg, 2, tablet, By Mouth, Daily at bedtime, PRN, with plenty of water, # 180 tablet, Refills 3,Tot. Refills 3, Maintenance, Constipation, 02/19/23 16:38:00 EDT, Route to Pharmacy Electronically,[facility]/pharmacy #[id number] Tablet, Partial fill upon patien... [...] Care Team Personnel Name: Cadence Bryant Position: [facility] PCO Associate Professional Member Role: PCP Address: Address: [address] [place] [address]- Care Team Related Persons Name: RAÚL CRISTOBAL Address: home [address] FIRST FLOOR [phone] [place] [address] Name: KAYLAH WEAVER
--- OUTSIDE RECORDS SUMMARY | 2024-02-13 12:42 | XMS_ITS | Continuity of Care Document ---
Author Organization [facility] Address [address] [place] [address]- Care Team Providers Care Armed Custom Protection Officer Name Role Phone Passer Cadence JOHNS Primary Care Physician [place] [facility] [place] [facility] [place]15[place]23 - 10/15/23 [facility]/[address] [address]- Allergies, Adverse Reactions, Alerts Substance Reaction Severity [...] 07/16/23 16:53:00 EST, Route to Pharmacy Electronically, [id number], 168, cm, 07/16/23 16:28:00 ES... Start Date: 07/16/23 Status: Ordered cyclobenzaprine 5 mg oral tablet 1 tablet, By Mouth, 2 times a day, PRN NEEDED FOR BACK PAIN, # 180 tablet, 1 Refills, Maintenance, 07/16/23 16:54:00 EST, [facility], 168, cm, 07/16/23 16:28:00 EST, Height, 85, kg, 07/16/23 16:28:00 EST, Dry Weight Start Date: 07/16/23 Status: Ordered gabapentin 300 mg oral capsule 1, capsule, By Mouth, Daily at bedtime, PRN, # 90 capsule, Refills 1, Tot. Refills 1, Maintenance, NEEDED FOR NERVE PAIN, 07/16/23 16:53:00 EST, Route to Pharmacy Electronically, [facility]-[id number], 168, cm, 07/16/23 16:28:00 EST,... Start Date: 07/16/23 Status: Ordered hydrocortisone topical 25 mg suppository 1 supp = 25 mg, Rectally, 2 times a day, # 28 supp, 1 Refills, Maintenance, 12/10/21 10:58:00 EDT, Suppository, [facility], Partial fill upon patient request if the prescription is for a schedule II opioid drug., 168, cm, 0... Start Date: 12/10/21 Stop Date: 01/07/22 Status: Ordered hydrOXYzine hydrochloride 25 mg oral tablet 1 tablet = 25 mg, By Mouth, Daily, PRN for anxiety, for anxiety, # 90 tablet, 2 Refills, Maintenance, 07/16/23 16:53:00 EST, Tablet, [facility], Partial fill upon patient request if the prescription is for a schedule II opioid... Start Date: 07/16/23 Status: Ordered lidocaine 5% topical film 1 patch, Topically, Daily, remove patches after 12 hours for back pain, # 60 pack/packet, 6 Refills, Maintenance, 07/16/23 16:53:00 EST, Film, [facility], Partial fill upon patient request if the prescription is for a schedul... Start Date: 07/16/23 Status: Ordered meloxicam 15 mg oral tablet See Instructions, TAKE 1 TABLET BY MOUTH NEEDED FOR PAIN WITH FOOD, # 90 tablet, 2 Refills, Maintenance, 07/16/23 16:53:00 EST, [facility], 168, cm, 07/16/23 16:28:00 EST,Height, 85, kg, 07/16/23 16:28:00 EST, Dry Weight Start Date: 07/16/23 Status: Ordered Senna 8.6 mg oral tablet 17.2 mg, 2, tablet, By Mouth, Daily at bedtime, PRN, with plenty of water, # 180 tablet, Refills 3,Tot. Refills 3, Maintenance, Constipation, 07/16/23 16:53:00 EST, Route to Pharmacy Electronically,[facility]- Tablet, Partial... Start Date: 07/16/23 Status: Ordered [...] Care Team Personnel Name: Cadence Bryant Position: [facility] PCO Associate Professional Member Role: PCP Address: Address: [address] [place] [id number]- Care Team Related Persons Name: RAÚL CRISTOBAL Address: home [address] FIRST FLOOR [phone] [place] [address] Name: KAYLAH WEAVER
--- OUTSIDE RECORDS SUMMARY | 2024-02-13 12:42 | XMS_ITS | Continuity of Care Document ---
Author Organization [facility] Address [address] [place] [address]- Care Team Providers Care Imcu Nurse Name Role Phone Passer Cadence JOHNS Primary Care Physician [place] [facility] [place] [facility] [place]23 - 10/30/23 [facility] [address] [place] [address]- Allergies, Adverse Reactions, Alerts Substance Reaction Severity [...] 07/16/23 16:53:00 EST, Route to Pharmacy Electronically, [id number], 168, cm, 07/16/23 16:28:00 ES... Start Date: 07/16/23 Status: Ordered cyclobenzaprine 5 mg oral tablet 1 tablet, By Mouth, 2 times a day, PRN NEEDED FOR BACK PAIN, # 180 tablet, 1 Refills, Maintenance, 07/16/23 16:54:00 EST, [facility], 168, cm, 07/16/23 16:28:00 EST, Height, 85, kg, 07/16/23 16:28:00 EST, Dry Weight Start Date: 07/16/23 Status: Ordered gabapentin 300 mg oral capsule 1, capsule, By Mouth, Daily at bedtime, PRN, # 90 capsule, Refills 1, Tot. Refills 1, Maintenance, NEEDED FOR NERVE PAIN, 07/16/23 16:53:00 EST, Route to Pharmacy Electronically, [id number], 168, cm, 07/16/23 16:28:00 EST,... Start Date: 07/16/23 Status: Ordered hydrocortisone topical 25 mg suppository 1 supp = 25 mg, Rectally, 2 times a day, # 28 supp, 1 Refills, Maintenance, 12/10/21 10:58:00 EDT, Suppository, [facility], Partial fill upon patient request if the prescription is for a schedule II opioid drug., 168, cm, 0... Start Date: 12/10/21 Stop Date: 01/07/22 Status: Ordered hydrOXYzine hydrochloride 25 mg oral tablet 1 tablet = 25 mg, By Mouth, Daily, PRN for anxiety, for anxiety, # 90 tablet, 2 Refills, Maintenance, 07/16/23 16:53:00 EST, Tablet, [facility], Partial fill upon patient request if the prescription is for a schedule II opioid... Start Date: 07/16/23 Status: Ordered lidocaine 5% topical film 1 patch, Topically, Daily, remove patches after 12 hours for back pain, # 60 pack/packet, 6 Refills, Maintenance, 07/16/23 16:53:00 EST, Film, [facility], Partial fill upon patient request if the prescription is for a schedul... Start Date: 07/16/23 Status: Ordered meloxicam 15 mg oral tablet See Instructions, TAKE 1 TABLET BY MOUTH NEEDED FOR PAIN WITH FOOD, # 90 tablet, 2 Refills, Maintenance, 07/16/23 16:53:00 EST, [facility], 168, cm, 07/16/23 16:28:00 EST,Height, 85, kg, 07/16/23 16:28:00 EST, Dry Weight Start Date: 07/16/23 Status: Ordered Senna 8.6 mg oral tablet 17.2 mg, 2, tablet, By Mouth, Daily at bedtime, PRN, with plenty of water, # 180 tablet, Refills 3,Tot. Refills 3, Maintenance, Constipation, 07/16/23 16:53:00 EST, Route to Pharmacy Electronically,[facility]- Tablet, Partial... Start Date: 07/16/23 Status: [...] Personnel Name: Cadence Bryant Position: [facility] PCO Associate Professional Member Role: PCP Address: Address: [address] [place] [address]- Care Team Related Persons Name: RAÚL CRISTOBAL Address: home [address] [place] [address] FIRST FLOOR [phone] [place] [address] Name: KAYLAH WEAVER
--- OUTSIDE RECORDS SUMMARY | 2024-02-13 12:42 | XMS_ITS | Continuity of Care Document ---
Author Organization [facility] Address [address] [place] [address]- Care Team Providers Care Armature Straightener Name Role Phone Passer Cadence JOHNS Primary Care Physician En[place] [facility] [place] Date(s): 07/04/23 - 08/03/23 [facility]/[address] [address]- [place] Allergies, Adverse Reactions, Alerts Substance Reaction [...] 07/16/23 16:53:00 EST, Route to Pharmacy Electronically, [facility]-, 168, cm, 07/16/23 16:28:00 ES... Start Date: 07/16/23 Status: Ordered cyclobenzaprine 5 mg oral tablet 1 tablet, By Mouth, 2 times a day, PRN NEEDED FOR BACK PAIN, # 180 tablet, 1 Refills, Maintenance, 07/16/23 16:54:00 EST, [facility], 168, cm, 07/16/23 16:28:00 EST, Height, 85, kg, 07/16/23 16:28:00 EST, Dry Weight Start Date: 07/16/23 Status: Ordered gabapentin 300 mg oral capsule 1, capsule, By Mouth, Daily at bedtime, PRN, # 90 capsule, Refills 1, Tot. Refills 1, Maintenance, NEEDED FOR NERVE PAIN, 07/16/23 16:53:00 EST, Route to Pharmacy Electronically, [id number], 168, cm, 07/16/23 16:28:00 EST,... Start Date: 07/16/23 Status: Ordered hydrocortisone topical 25 mg suppository 1 supp = 25 mg, Rectally, 2 times a day, # 28 supp, 1 Refills, Maintenance, 12/10/21 10:58:00 EDT, Suppository, [facility], Partial fill upon patient request if the prescription is for a schedule II opioid drug., 168, cm, ... Start Date: 12/10/21 Stop Date: 01/07/22 Status: Ordered hydrOXYzine hydrochloride 25 mg oral tablet 1 tablet = 25 mg, By Mouth, Daily, PRN for anxiety, for anxiety, # 90 tablet, 2 Refills, Maintenance, 07/16/23 16:53:00 EST, Tablet, [facility], Partial fill upon patient request if the prescription is for a schedule II opioid... Start Date: 07/16/23 Status: Ordered lidocaine 5% topical film 1 patch, Topically, Daily, remove patches after 12 hours for back pain, # 60 pack/packet, 6 Refills, Maintenance, 07/16/23 16:53:00 EST, Film, [facility], Partial fill upon patient request if the prescription is for a schedul... Start Date: 07/16/23 Status: Ordered meloxicam 15 mg oral tablet See Instructions, TAKE 1 TABLET BY MOUTH NEEDED FOR PAIN WITH FOOD, # 90 tablet, 2 Refills, Maintenance, 07/16/23 16:53:00 EST, [facility], 168, cm, 07/16/23 16:28:00 EST,Height, 85, kg, 07/16/23 16:28:00 EST, Dry Weight Start Date: 07/16/23 Status: Ordered Senna 8.6 mg oral tablet 17.2 mg, 2, tablet, By Mouth, Daily at bedtime, PRN, with plenty of water, # 180 tablet, Refills 3,Tot. Refills 3, Maintenance, Constipation, 07/16/23 16:53:00 EST, Route to Pharmacy Electronically,[facility]- Tablet, Partial... Start Date: 07/16/23 Status: [...] Bryant Position: [facility] PCO Associate Professional Member Role: PCP Address: Address: [address] [place] [address]- Care Team Related Persons Name: RAÚL CRISTOBAL Address: home [address] FIRST FLOOR [phone] [place] [address] Name: KAYLAH WEAVER
--- OUTSIDE RECORDS SUMMARY | 2024-02-13 12:42 | XMS_ITS | Continuity of Care Document ---
Author Organization [facility] Address [address] [place] [address]- Care Team Providers Care Manager Grant Name Role Phone Passer Cadence JOHNS Primary Care Phys[place] [facility] [place] - 10/25/23 [facility]/[address] [address]- Allergies, Adverse Reactions, Alerts Substance Reaction Severity [...] EST, Route to Pharmacy Electronically, [facility]-[id number], 168, cm, 07/16/23 16:28:00 ES... Start Date: 07/16/23 Status: Ordered cyclobenzaprine 5 mg oral tablet 1 tablet, By Mouth, 2 times a day, PRN NEEDED FOR BACK PAIN, # 180 tablet, 1 Refills, Maintenance, 07/16/23 16:54:00 EST, [facility], 168, cm, 07/16/23 16:28:00 EST, Height, 85, kg, 07/16/23 16:28:00 EST, Dry Weight Start Date: 07/16/23 Status: Ordered gabapentin 300 mg oral capsule 1, capsule, By Mouth, Daily at bedtime, PRN, # 90 capsule, Refills 1, Tot. Refills 1, Maintenance, NEEDED FOR NERVE PAIN, 07/16/23 16:53:00 EST, Route to Pharmacy Electronically, [facility]-[id number], 168, cm, 07/16/23 16:28:00 EST,... Start Date: 07/16/23 Status: Ordered hydrocortisone topical 25 mg suppository 1 supp = 25 mg, Rectally, 2 times a day, # 28 supp, 1 Refills, Maintenance, 12/10/21 10:58:00 EDT, Suppository, [facility], Partial fill upon patient request if the prescription is for a schedule II opioid drug., 168, cm, 0... Start Date: 12/10/21 Stop Date: 01/07/22 Status: Ordered hydrOXYzine hydrochloride 25 mg oral tablet 1 tablet = 25 mg, By Mouth, Daily, PRN for anxiety, for anxiety, # 90 tablet, 2 Refills, Maintenance, 07/16/23 16:53:00 EST, Tablet, [facility], Partial fill upon patient request if the prescription is for a schedule II opioid... Start Date: 07/16/23 Status: Ordered lidocaine 5% topical film 1 patch, Topically, Daily, remove patches after 12 hours for back pain, # 60 pack/packet, 6 Refills, Maintenance, 07/16/23 16:53:00 EST, Film, [facility], Partial fill upon patient request if the prescription is for a schedul... Start Date: 07/16/23 Status: Ordered meloxicam 15 mg oral tablet See Instructions, TAKE 1 TABLET BY MOUTH NEEDED FOR PAIN WITH FOOD, # 90 tablet, 2 Refills, Maintenance, 07/16/23 16:53:00 EST, [facility], 168, cm, 07/16/23 16:28:00 EST,Height, 85, kg, 07/16/23 16:28:00 EST, Dry Weight Start Date: 07/16/23 Status: Ordered Senna 8.6 mg oral tablet 17.2 mg, 2, tablet, By Mouth, Daily at bedtime, PRN, with plenty of water, # 180 tablet, Refills 3,Tot. Refills 3, Maintenance, Constipation, 07/16/23 16:53:00 EST, Route to Pharmacy Electronically,[facility]- Tablet, Partial... Start Date: 07/16/23 Status: Ordered [...] Care Team Personnel Name: Cadence Bryant Position: [facility] PCO Associate Professional Member Role: PCP Address: Address: [address] [place] [address]- Care Team Related Persons Name: RAÚL CRISTOBAL Address: home [address] FIRST FLOOR [phone] [place] [address] Name: KAYLAH WEAVER
--- OUTSIDE RECORDS SUMMARY | 2024-02-13 12:42 | XMS_ITS | Continuity of Care Document ---
Author Organization [facility] Address [address] [place] [address]- Care Team Providers Care Export Sales Manager Name Role Phone Passer Cadence JOHNS Primary Care Physician En[place] [facility] [place](s): 07/16/23 - 08/15/23 [facility]/[address] [address]- Attending Physician: Admtr, Ar8 Admitting Physician: Admtr, [...] 07/16/23 16:53:00 EST, Route to Pharmacy Electronically, [facility]-[id number], 168, cm, 07/16/23 16:28:00 EST,... Start [...] Maintenance, 07/16/23 16:53:00 EST, [facility]-, 168, cm, 07/16/23 16:28:00 EST,Height, 85, kg, [...] Associate Professional Member Role: PCP Address: Address: [address] [place] [address]- Care Team Related Persons Name: RAÚL CRISTOBAL Address: home [address] FIRST FLOOR [phone] [place] [address] Name: KAYLAH WEAVER
--- OUTSIDE RECORDS SUMMARY | 2024-02-13 12:43 | XMS_ITS | Continuity of Care Document ---
Author Organization [facility] Address [address] [place] [id number]- Care Team Providers Care Plunger Shovel Operator Name Role Phone Cadence Bryant Primary Care Physician [place] [facility] 12[place]21[place]23 - 01/29/[address] [address] Attending Physician: Cadence Bryant Admitting Physician: [...] EST, Route to Pharmacy Electronically, [facility]-, 168, cm, 07/16/23 16:28:00 ES... Start Date: 07/16/23 Status: Ordered cyclobenzaprine 5 mg oral tablet 1 tablet, By Mouth, 2 times a day, PRN NEEDED FOR BACK PAIN, # 180 tablet, 1 Refills, Maintenance, 11/14/23 15:04:00 EDT, [facility]/pharmacy #[id number], 168, cm, 10/24/23 11:19:00 EDT, Height, 85, kg, 07/16/23 16:28:00 EST, Dry Weight Start Date: 11/14/23 Status: Ordered gabapentin 300 mg oral capsule 1, capsule, By Mouth, Daily at bedtime, PRN, # 90 capsule, Refills 1, Tot. Refills 1, Maintenance, NEEDED FOR NERVE PAIN, 11/14/23 15:04:00 EDT, Route to Pharmacy Electronically, [facility]/pharmacy #[id number], 168, cm, 10/24/23 11:19:00 EDT, Height, 85, kg, 0... Start Date: 11/14/23 Status: Ordered hydrocortisone topical 25 mg suppository 1 supp = 25 mg, Rectally, 2 times a day, # 28 supp, 1 Refills, Maintenance, 12/10/21 10:58:00 EDT, Suppository, [facility], Partial fill upon patient request if the prescription is for a schedule II opioid drug., 168, cm, 08/0... Start Date: 12/10/21 Stop Date: 01/07/22 Status: Ordered hydrOXYzine hydrochloride 25 mg oral tablet 1 tablet = 25 mg, By Mouth, Daily, PRN for anxiety, for anxiety, # 90 tablet, 1 Refills, Maintenance, 11/14/23 15:04:00 EDT, Tablet, [facility]/pharmacy #[id number], Partial fill upon patient request if the prescription is for a schedule II opioid drug., 168, cm,... Start Date: 11/14/23 Status: Ordered lidocaine 5% topical film 1 patch, Topically, Daily, remove patches after 12 hours for back pain, # 60 pack/packet, 6 Refills, Maintenance, 11/14/23 15:04:00 EDT, Film, [facility]/pharmacy #[id number], Partial fill upon patient request ifthe [...] 16:53:00 EST, Route to Pharmacy Electronically,[facility]- Tablet, Partial... Start Date: 07/16/23 Status: Ordered [...] Care Team Personnel Name: Cadence Bryant Position: [facility] Associate Professional Member Role: PCP Address: Address: [address] [place] [id number]- Care Team Related Persons Name: RAÚL CRISTOBAL Address: home [address] FIRST FLOOR [phone] [place] [address] Name: KAYLAH WEAVER
--- OUTSIDE RECORDS SUMMARY | 2024-02-13 12:43 | XMS_ITS | Continuity of Care Document ---
Author Organization [facility] Address [address] [place] [address]- Care Team Providers Care Configuration Specialist Name Role Phone Passer Cadence JOHNS Primary Care Physician Encounter [facility] Date(s): 10/24/23 - 11/23/23 [facility] [address] [place] [address]- Attending Physician: Admtr, [id number] Admitting Physician: Admtr, [...] 07/16/23 16:53:00 EST, Route to Pharmacy Electronically, [facility]-[id number], 168, cm, 07/16/23 16:28:00 ES... Start Date: 07/16/23 Status: Ordered cyclobenzaprine 5 mg oral tablet 1 tablet, By Mouth, 2 times a day, PRN NEEDED FOR BACK PAIN, # 180 tablet, 1 Refills, Maintenance, 11/14/23 15:04:00 EDT, [facility]/pharmacy #[id number], 168, cm, 10/24/23 11:19:00 EDT, Height, 85, kg, 07/16/23 16:28:00 EST, Dry Weight Start Date: 11/14/23 Status: Ordered gabapentin 300 mg oral capsule 1, capsule, By Mouth, Daily at bedtime, PRN, # 90 capsule, Refills 1, Tot. Refills 1, Maintenance, NEEDED FOR NERVE PAIN, 11/14/23 15:04:00 EDT, Route to Pharmacy Electronically, [facility]/pharmacy #[id number], 168, cm, 10/24/23 11:19:00 EDT, Height, 85, kg, 0... Start Date: 11/14/23 Status: Ordered hydrocortisone topical 25 mg suppository 1 supp = 25 mg, Rectally, 2 times a day, # 28 supp, 1 Refills, Maintenance, 12/10/21 10:58:00 EDT, Suppository, [facility], Partial fill upon patient request if the prescription is for a schedule II opioid drug., 168, cm, 08/0... Start Date: 12/10/21 Stop Date: 01/07/22 Status: Ordered hydrOXYzine hydrochloride 25 mg oral tablet 1 tablet = 25 mg, By Mouth, Daily, PRN for anxiety, for anxiety, # 90 tablet, 1 Refills, Maintenance, 11/14/23 15:04:00 EDT, Tablet, [facility]/pharmacy #[id number], Partial fill upon patient request if the prescription is for a schedule II opioid drug., 168, cm,... Start Date: 11/14/23 Status: Ordered lidocaine 5% topical film 1 patch, Topically, Daily, remove patches after 12 hours for back pain, # 60 pack/packet, 6 Refills, Maintenance, 11/14/23 15:04:00 EDT, Film, [facility]/pharmacy #[id number], Partial fill upon patient request [...] Constipation, 07/16/23 16:53:00 EST, Route to Pharmacy Electronically,[facility]- Tablet, Partial... Start Date: 07/16/23 Status: Ordered [...] Associate Professional Member Role: PCP Address: Address: [address] [place] [address]- Care Team Related Persons Name: RAÚL CRISTOBAL Address: home [address]LO[address] [phone] [place] [address] Name: KAYLAH WEAVER
--- OUTSIDE RECORDS SUMMARY | 2024-02-13 12:43 | XMS_ITS | Continuity of Care Document ---
Author Organization [facility] Address [address] [place] [address]- Care Team Providers Care Research Biologist Name Role Phone Passer Cadence JOHNS Primary Care Physician Encounter [facility] Date(s): 12/12/23 - 01/11/24 [facility]/[address] [address]- Allergies, Adverse Reactions, Alerts Substance Reaction Severity [...] 16:53:00 EST, Route to Pharmacy Electronically, [id number], 168, cm, 07/16/23 16:28:00 ES... Start Date: [...] 1 Refills, Maintenance, 12/10/21 10:58:00 EDT, Suppository, [facility], Partial fill upon patient request if the [...] 07/16/23 16:53:00 EST, Route to Pharmacy Electronically,[facility]- Tablet, Partial... Start Date: 07/16/23 Status: Ordered [...] Care Team Personnel Name: Cadence Bryant Position: [facility] Associate Professional Member Role: PCP Address: Address: [address] [place] [address]- Care Team Related Persons Name: RAÚL CRISTOBAL Address: home [address] [place] [address] [address]LO[address] [phone] [place] [address] Name: KAYLAH WEAVER
--- OUTSIDE RECORDS SUMMARY | 2024-02-13 12:43 | XMS_ITS | Continuity of Care Document ---
Author Organization [facility] Address [address] [place] [address]- Care Team Providers Care Communications Senior Associate Name Role Phone Passer Cadence JOHNS Primary Care Physician Encounter [facility] Date(s): 06/19/23 - 07/19/23 [facility]/[address] [address]- [place] Allergies, Adverse Reactions, Alerts Substance Reaction [...] EST, Route to Pharmacy Electronically, [facility]-, 168, cm, 07/16/23 16:28:00 ES... Start Date: 07/16/23 Status: Ordered cyclobenzaprine 5 mg oral tablet 1 tablet, By Mouth, 2 times a day, PRN NEEDED FOR BACK PAIN, # 180 tablet, 1 Refills, Maintenance, 07/16/23 16:54:00 EST, [facility], 168, cm, 07/16/23 16:28:00 EST, Height, 85, kg, 07/16/23 16:28:00 EST, Dry Weight Start Date: 07/16/23 Status: Ordered gabapentin 300 mg oral capsule 1, capsule, By Mouth, Daily at bedtime, PRN, # 90 capsule, Refills 1, Tot. Refills 1, Maintenance, NEEDED FOR NERVE PAIN, 07/16/23 16:53:00 EST, Route to Pharmacy Electronically, [id number], 168, cm, 07/16/23 16:28:00 EST,... Start Date: 07/16/23 Status: Ordered hydrocortisone topical 25 mg suppository 1 supp = 25 mg, Rectally, 2 times a day, # 28 supp, 1 Refills, Maintenance, 12/10/21 10:58:00 EDT, Suppository, [facility], Partial fill upon patient request if the prescription is for a schedule II opioid drug., 168, cm, ... Start Date: 12/10/21 Stop Date: 01/07/22 Status: Ordered hydrOXYzine hydrochloride 25 mg oral tablet 1 tablet = 25 mg, By Mouth, Daily, PRN for anxiety, for anxiety, # 90 tablet, 2 Refills, Maintenance, 07/16/23 16:53:00 EST, Tablet, [facility], Partial fill upon patient request if the prescription is for a schedule II opioid... Start Date: 07/16/23 Status: Ordered lidocaine 5% topical film 1 patch, Topically, Daily, remove patches after 12 hours for back pain, # 60 pack/packet, 6 Refills, Maintenance, 07/16/23 16:53:00 EST, Film, [facility], Partial fill upon patient request if the prescription is for a schedul... Start Date: 07/16/23 Status: Ordered meloxicam 15 mg oral tablet See Instructions, TAKE 1 TABLET BY MOUTH NEEDED FOR PAIN WITH FOOD, # 90 tablet, 2 Refills, Maintenance, 07/16/23 16:53:00 EST, [facility], 168, cm, 07/16/23 16:28:00 EST,Height, 85, kg, 07/16/23 16:28:00 EST, Dry Weight Start Date: 07/16/23 Status: Ordered Senna 8.6 mg oral tablet 17.2 mg, 2, tablet, By Mouth, Daily at bedtime, PRN, with plenty of water, # 180 tablet, Refills 3,Tot. Refills 3, Maintenance, Constipation, 07/16/23 16:53:00 EST, Route to Pharmacy Electronically,[facility]- Tablet, Partial... Start Date: 07/16/23 Status: Ordered [...] Care Team Personnel Name: Cadence Bryant Position: [facility] Associate Professional Member Role: PCP Address: Address: [address] [place] [address]- Care Team Related Persons Name: RAÚL CRISTOBAL Address: home [address]LO[address] [phone] [place] [address] Name: KAYLAH WEAVER
--- OUTSIDE RECORDS SUMMARY | 2024-02-13 12:44 | XMS_ITS | Continuity of Care Document ---
Author Organization [facility] Address [address] [place] [id number]- Care Team Providers Care Crusher Loader Operator Name Role Phone Passer Cadence JOHNS Primary Care Physician Encounter [facility] Date(s): 12/30/23 - 01/29/[address] [address] Attending Physician: Admtr, [place]8 Admitting Physician: Admtr, Ar8 Referring Physician: Admtr, [...] Route to Pharmacy Electronically, [id number], 168, cm, 07/16/23 16:28:00 ES... Start Date: 07/16/23 Status: Ordered cyclobenzaprine 5 mg oral tablet 1 tablet, By Mouth, 2 times a day, PRN NEEDED FOR BACK PAIN, # 180 tablet, 1 Refills, Maintenance, 11/14/23 15:04:00 EDT, [facility]/pharmacy #[id number], 168, cm, 10/24/23 11:19:00 EDT, Height, 85, kg, 07/16/23 16:28:00 EST, Dry Weight Start Date: 11/14/23 Status: Ordered gabapentin 300 mg oral capsule 1, capsule, By Mouth, Daily at bedtime, PRN, # 90 capsule, Refills 1, Tot. Refills 1, Maintenance, NEEDED FOR NERVE PAIN, 11/14/23 15:04:00 EDT, Route to Pharmacy Electronically, [facility]/pharmacy #[id number], 168, cm, 10/24/23 11:19:00 EDT, Height, 85, kg, 0... Start Date: 11/14/23 Status: Ordered hydrocortisone topical 25 mg suppository 1 supp = 25 mg, Rectally, 2 times a day, # 28 supp, 1 Refills, Maintenance, 12/10/21 10:58:00 EDT, Suppository, [facility], Partial fill upon patient request if the prescription is for a schedule II opioid drug., 168, cm, 08/0... Start Date: 12/10/21 Stop Date: 01/07/22 Status: Ordered hydrOXYzine hydrochloride 25 mg oral tablet 1 tablet = 25 mg, By Mouth, Daily, PRN for anxiety, for anxiety, # 90 tablet, 1 Refills, Maintenance, 11/14/23 15:04:00 EDT, Tablet, [facility]/pharmacy #[id number], Partial fill upon patient request if the prescription is for a schedule II opioid drug., 168, cm,... Start Date: 11/14/23 Status: Ordered lidocaine 5% topical film 1 patch, Topically, Daily, remove patches after 12 hours for back pain, # 60 pack/packet, 6 Refills, Maintenance, 11/14/23 15:04:00 EDT, Film, [facility]/pharmacy #[id number], Partial fill upon patient request [...] Associate Professional Member Role: PCP Address: Address: [address] [place] [id number]- Care Team Related Persons Name: RAÚL CRISTOBAL Address: home [address] FIRST FLO[address] [phone] [place] [address] Name: KAYLAH WEAVER
[2024-02-13 13:36] VITALS: BP 122/72; PULSE 94; RESP 18; TEMP 36.4; O2SAT 99
== END 2024-02-13 13:39 | disposition home or self-care (01) ==
PROVIDERS: Physician Assistant Medical; Emergency Provider Student in an Organized Health Care Education/Training Program; PCP Physician Assistant Medical
DX: R55 Syncope and collapse (principal); K64.8 Other hemorrhoids
CPT/HCPCS: 36415; 80053; 83735; 85025; 93005; 99283

== ENCOUNTER 2024-10-05 09:27 | Emergency (ER) | payer OTHER, SELFPAY ==
--- NOTE | ~2024-10-05 | XR_ITS ---
EXAMINATION: XR FOOT, LEFT CLINICAL INFORMATION: left metarsal redness. osteo? COMPARISON: None available. TECHNIQUE: AP, lateral, and oblique views of the left foot. FINDINGS: No osteolysis. No lytic or blastic lesions. No subcutaneous emphysema. No acute cortical disruption or gross malalignment. No metallic or radiopaque foreign body. XR/XR foot LT 2V IMPRESSION: No osteomyelitis based upon x-ray. Electronically signed by: Misha Szymanski MD 10/05/2024 11:00 AM EDT
[2024-10-05 09:35] VITALS: BP 126/50; PULSE 87; RESP 14; TEMP 36.6; O2SAT 100; BMI 24.8
--- NOTE | 2024-10-05 09:50 | PC.NURSE ---
Patients has scar tissue /difficult draw, refused a second attempt.
[2024-10-05 10:00] VITALS: BP 108/60; PULSE 75; RESP 13; TEMP 37; O2SAT 99
--- NOTE | 2024-10-05 10:41 | MHC.EDTECH ---
patient refuses blood at this time. provider aware. provider states that the patient will be scanned and then he will decide if the bloodwork is necessary.
--- OUTSIDE RECORDS SUMMARY | 2024-10-05 10:51 | XMS_ITS | Patient Health Record ---
Author Organization [facility] Address [address] [place], [place] [id number] Care Team Providers Care Work Car Operator Name Role Phone No, PCP Primary Care Provider Unavailabl e Reason For Referral No Information Medications Medication SIG (Take, Route, Frequency, Duration) Notes Start Date End Date Status Suboxone Active acetaminophen 500 mg 1 tab(s) orally gil ry 6 hours for 5 days 12/25/2020 Active ibuprofen 600 mg 1 tab(s) orally ever y 6 hours for 5 days 12/25/2020 Active amoxicillin 500 mg 1 cap(s) orally 3 ti mes a day for 7 day(s) 12/14/2020 Active ibuprofen 600 mg 1 tab(s) orally ever y 6 hours for 5 days 12/14/2020 Active Acetaminophen Extra Strength 500 mg 1 tab orally every 6 hours for 5 days 12/14/2020 Active Plan Of Treatment No Information Insurance Providers Payer Name Payer Address Payer Phone Subscriber Number Group Number Insured Name Patient Relationship to Insured Coverage Start Date Coverage End Date [facility] [address] [place] [phone] [id number] Femi Mendoza Self - patient is the insured 5 Medical (General) History Medical History History ICD Code asthma hx of broken bones hx of hepatitis C (treated) GAIL
--- NOTE | 2024-10-05 11:00 | ED_ITS ---
HPI - General Adult General Chief complaint: Extremity Injury, Lower Stated complaint: Infection L foot Time Seen by Provider: 10/05/24 10:18 Source: patient Mode of arrival: ambulatory Limitations: no limitations History of Present Illness ED Provider: Arnold Stephen HPI narrative: 49-year-old male with past medical history of asthma presents to the ED for left foot redness near 5th metatarsal for the past 3 days. 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 Patient left foot metatarsal area was swollen and red and then started improving and resolved after receiving traditional treatment on foot by his mother. Patient denies any pus discharge. Patient did try to pop it and there was little bit of discharged with then resolved. Patient states has chronic open wound in between 4th and 5th toe for years that does not have any drainage. Patient denies any recent IV drug use. Patient states he had been cleaned for multiple years. Patient states hepatitis has been cured due to treatment. Related Data Previous Rx's ?Medication ?Instructions ?Recorded famotidine 20 mg tablet (Pepcid) 20 mg PO DAILY #30 tabs 10/23/20 ketorolac 10 mg tablet 10 mg PO Q8H PRN pain #10 tabs 05/20/21 lidocaine 5 % topical patch 1 patch topical DAILY pain #15 ea 05/20/21 (Lidoderm) prednisone 20 mg tablet 40 mg (2 x 20 mg) PO DAILY rash 5 05/20/21 days #10 tabs cephalexin 500 mg capsule 500 mg PO QID 7 days #28 caps 10/05/24 doxycycline hyclate 100 mg tablet 100 mg PO BID 7 days #14 tabs 10/05/24 Allergies Allergy/AdvReac Type Severity Reaction Status Date / Time No Known Allergies Allergy Verified 10/05/24 09:35 Review of Systems 2 Review of Systems: left foot erythema Yes all other systems are reviewed and are negative [facility] Past Medical History Medical History Hepatitis C Asthma Social History Social History Smoked in Last 30 Days: No Substance Use Type: Marijuana Advance Directives: No Advance Directives Information Provided: Yes Physical Exam ED Vital Signs: Vital Signs - 24 hr 10/05/24 09:35 10/05/24 10:00 10/05/24 11:46 Temperature 97.8 F 98.6 F 98.6 F Pulse Rate 87 75 75 Respiratory Rate 14 13 13 Blood Pressure 126/50 L 108/60 108/60 Pulse Oximetry 100 99 99 Oxygen Delivery Method Room Air Room Air Room Air BMI result Body Mass Index 24.8 Const General: cooperative, healthy appearing, comfortable, no acute distress, well developed, alert, awake and Physically active Orientation/consciousness: patient oriented x3 [facility] Head: Yes normal to inspection, Yes No palpable skull fracture present, Yes normocephalic and Yes atraumatic Eyes General: appearance normal, both eyes and all related structures Neck Neck: Yes normal visual inspection, Yes full ROM, Yes no lymphadenopathy, Yes no meningeal signs, Yes trachea midline, Yes supple, No anterior neck swelling and No tender Chest Chest palpation & inspection: normal inspection of the chest and normal palpation of entire chest wall Resp Effort & Inspection: normal respiratory effort and able to speak in complete sentences Cardio Jugular venous distension: no JVD Heart sounds: S1 normal heart sound present and S2 normal heart sound present GI Inspection: Yes normal to inspection Palpation (GI): Soft to palpation, not firm, nontender, no guarding and not rigid General: Yes no CVA tenderness Back/Spine/Pelvis Back: no CVA tenderness and No back tenderness Skin General skin exam: no rashes or lesions noted, elasticity normal and turgor normal Neuro General: patient oriented x3, gait normal, tone normal, moves all extremities, Normal light touch and pain sensation, no meningeal signs, no focal motor deficits, CN's II-XI intact bilaterally and normal sensation to monofilament Extrem Other: No tracking in open wound. no pus discharge from open woun hole in foot. As per patient has erythema on top of foot and actually improved. Patient states also swelling that is also improved. Rest of extremity normal. Negative for any leg swelling, calf pain, red streak, bluish black discoloration, or foul odor. Vascular motor neuro exam intact. Qtip was placed in hole and there was no tracking or pus discharge. chronic hole/wound not deep. 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 Patient states he popped the area which caused spreading of erythema but erythema has resolved and swelling. Patient denies any pus discharge or foul odor from chronic open wound between 4th and 5th toe. Patient refused labs patient states he is a hard stick. Patient just wants oral antibiotics as he has been treated with the same thing in the past and improved with oral antibiotics. Patient explained necessity for labs make sure with admits to no osteomyelitis although x-ray negative for osteomyelitis. Patient states he will follow up with primary care provider. Patient understands risks including . Patient is not toxic appearing. Patient will be discharged antibiotics and informed to follow up with primary care provider. Patient explained worrisome signs and informed to return to the ED immdiatley. Not suspecting septic joint, gout, lymphangitis, compartment syndrome, arterial occlusion, DVT necrotizing fasciitis, gangrene, or any other life-threatening etiology. Differential Diagnosis Differential Diagnoses: The differential diagnosis associated with the presentation includes (Cellulitis, osteomyelitis) Admission/Observation Consideration of admission/observation: Escalation of care including admission/observation considered Independent Interpretation I performed an independent interpretation of an: Plain X-Ray Radiology Impression Discussion of test interpretation with radiology: I have reviewed the radiologist's reading. Prescription Management I considered prescription management with: Antibiotic Discharge Plan Discharge Clinical Impression: Cellulitis Patient Disposition: Home, Self-Care Instructions: Cellulitis (ED), Warm Compress or Soak (ED) Additional Instructions: X-ray came back negative for fracture, foreign body, or signs of osteomyelitis. You refused labs/blood work. You will be discharged with antibiotics. Recommend follow up with primary care provider at wound clinic. Return to the ED immediately for any increased swelling, redness, bluish black discoloration, pus discharge, foul odor, fever, chills, or any other concerning symptoms. EXAMINATION: XR FOOT, LEFT CLINICAL INFORMATION: left metarsal redness. osteo? COMPARISON: None available. TECHNIQUE: AP, lateral, and oblique views of the left foot. FINDINGS: No osteolysis. No lytic or blastic lesions. No subcutaneous emphysema. No acute cortical disruption or gross malalignment. No metallic or radiopaque foreign body. XR/XR foot LT 2V IMPRESSION: No osteomyelitis based upon x-ray. Electronically signed by: Misha Szymanski MD 10/05/2024 11:00 AM EDT Prescriptions: New doxycycline hyclate 100 mg tablet 100 mg PO BID 7 Days Qty: 14 0RF cephalexin 500 mg capsule 500 mg PO QID 7 Days Qty: 28 0RF No Action famotidine [Pepcid] 20 mg tablet 20 mg PO DAILY Qty: 30 0RF ketorolac 10 mg tablet 10 mg PO Q8H PRN (Reason: pain) Qty: 10 0RF Rx Instructions: Given 1st dose in the ED prednisone 20 mg tablet 40 mg PO DAILY 5 Days Qty: 10 0RF lidocaine [Lidoderm] 5 % adhesive patch,medicated 1 patch topical DAILY Qty: 15 0RF Rx Instructions: leave on most painful area for up to 12 hrs. May be substituted Referrals: [facility] [facility] [Provider Group] (Left foot cellulitis. Chronic open wound between 4th and 5th toe.) Stand Alone Forms: Work/School Release Interventions: ED Discharge Assessment Last Done: 10/05/24 11:46 Discharge Date/Time: 10/05/24 11:48 Print Language: Hong Konger
--- NOTE | 2024-10-05 11:07 | MHC.EDTECH ---
Patient refuses bloodwork.
[2024-10-05 11:46] VITALS: BP 108/60; PULSE 75; RESP 13; TEMP 37; O2SAT 99
== END 2024-10-05 11:48 | disposition home or self-care (01) ==
PROVIDERS: Emergency Provider Emergency Medicine; PCP Internal Medicine
DX: L03.116 Cellulitis of left lower limb (principal)
CPT/HCPCS: 73620; 99283; 99284

== ENCOUNTER → 2024-10-05 10:37 | Outpatient (BNV) | payer OTHER, SELFPAY | PROVIDERS: Emergency Provider Emergency Medicine; PCP Internal Medicine; Visit Provider Radiology Diagnostic Radiology | DX: M77.42 Metatarsalgia, left foot (principal) | CPT/HCPCS: 73620 ==

== ENCOUNTER 2024-10-21 12:34 | Outpatient (RCR) | payer OTHER, SELFPAY | END 2024-10-21 16:17 | disposition home or self-care (01) | LOC: HO.WCC 12:34 | PROVIDERS: PCP Internal Medicine; Visit Provider Surgery | DX: Z13.89 Encounter for screening for other disorder (principal) ==

== ENCOUNTER → 2025-03-17 09:39 | Outpatient (BNV) | payer OTHER, SELFPAY | PROVIDERS: PCP Internal Medicine; Visit Provider Radiology Diagnostic Radiology | DX: M21.42 Flat foot [pes planus] (acquired), left foot (principal); M19.072 Primary osteoarthritis, left ankle and foot | CPT/HCPCS: 73630 ==